=== PATIENT | male | born 1935 | race African-American/Black ===

== ENCOUNTER 2018-06-19 12:13 | Emergency (ER) | payer MEDICARE, MEDICAID ==
[2018-06-19] MEDS ORDERED: predniSONE 20 MG TAB ONE ×2 (14:35→14:42)
== END 2018-06-19 14:48 | disposition home or self-care (01) ==
LOC: ERS 12:13
DX: M79.641 Pain in right hand (principal); M79.642 Pain in left hand; E11.9 Type 2 diabetes mellitus without complications; E78.5 Hyperlipidemia, unspecified; I10 Essential (primary) hypertension; Z79.84 Long term (current) use of oral hypoglycemic drugs; Z79.899 Other long term (current) drug therapy
CPT/HCPCS: 99283; J7506

== ENCOUNTER 2018-10-13 17:30 | Observation (INO) | payer MEDICARE, MEDICAID ==
[2018-10-13 19:01] LABS: #Eosinphils 0.1 thou/uL (0.0-0.7); #Lymphocytes 1.6 thou/uL (1.20-3.40); #Monocytes 0.4 thou/uL (0.11-0.59); #Neutrophils 3.2 thou/uL (1.40-6.50); %Basophils 0.4 % (0.0-1.0); %Eosinophils 1.7 % (0.0-10.0); %Lymphocytes 29.7 % (21.0-51.0); %Monocytes 8.3 % (0.0-10.0); %Neutrophils 59.8 % (42.0-75.0); Hemoglobin 12.4 g/dL (14.0-18.0); Mean Corpuscular Hemoglobin 27.5 pg (27.0-31.0); Mean Corpuscular Volume 88.7 fL (78.0-98.0); Mean Platelet Volume 10.7 fL (7.4-10.4); Platelet Count 217 thou/uL (130-400); RBC Distribution Width 14.2 % (11.5-14.5); Red Blood Cell (RBC) Count 4.49 mill/uL (4.70-6.10); White Blood Cell (WBC) Count 5.3 thou/uL (4.8-10.8)
--- NOTE | 2018-10-13 19:11 | RAD ---
CHEST TWO VIEWS 10/13/18 COMPARISON: 05/22/07. HISTORY: Cough. FINDINGS: Slight elongation of the aorta. Pulmonary vessels and hilum are normal. Blunting of the costophrenic angles likely due to atelectasis or small effusion. No masses or consolidation. Lungs are hyperinflat ed. No pneumothorax or osseous abnormalities. IMPRESSION: 1. Blunting of the costophrenic angles due to small effusion or atelectasis. 2. Hyperinflation. POS: BAMBI
[2018-10-13 19:16] LABS: ALT (SGPT) 15 U/L (8-55); AST (SGOT) 18 U/L (5-34); Albumin 3.6 g/dL (3.4-4.8); Alkaline Phosphatase 102 U/L (40-150); Anion Gap 15 mmol/L (10-20); BUN (Urea Nitrogen) 18 mg/dL (8.4-25.7); Bilirubin, Total 0.5 mg/dL (0.2-1.2); CK (CPK) 45 U/L (30-200); Calc. Creatinine Clearance 0 mL/min (70-130); Calcium 9.5 mg/dL (7.8-10.44); Carbon Dioxide 21 mmol/L (23-31); Chloride 111 mmol/L (98-107); Estimated GFR-MDRD 72; Globulin 3.7 g/dL (2.4-3.5); Glucose 118 mg/dL (83-110); Potassium 4.1 mmol/L (3.5-5.1); Protein, Total 7.3 g/dL (5.8-8.1); Sodium 143 mmol/L (136-145)
[2018-10-13] MEDS ORDERED: Calcium Carbonate 500 MG ChewTAB PO PRN (21:26)
[2018-10-13] MEDS ORDERED: Acetaminophen 325 MG TAB PO PRN (21:26)
[2018-10-13] MEDS ORDERED: HumaLOG 300 UNITS/3 ML VIAL SC PRN ×2 (21:26)
[2018-10-13] MEDS ORDERED: Senokot S 8.6-50 MG TAB PO PRN (21:26)
[2018-10-13] MEDS ORDERED: Dextrose 50% Abboject 50 ML SYRINGE SLOW IVP PRN (21:26)
[2018-10-13] MEDS ORDERED: Dextrose 5% in Water 1,000 ML IV PRN (21:26)
[2018-10-13] MEDS ORDERED: Nitroglycerin 0.4 MG TAB (25 Tab Bottle) PO PRN (21:26)
[2018-10-13] MEDS ORDERED: Guaifenesin DM 100-10/5 ML UDCUP PO PRN (21:26)
[2018-10-13] MEDS ORDERED: Acetaminophen 650 MG Suppository PR PRN (21:26)
[2018-10-13] MEDS ORDERED: Zolpidem Tartrate 5 MG TAB PO PRN (21:26)
[2018-10-13] MEDS ORDERED: Bisacodyl 5 MG TAB PO PRN (21:26)
[2018-10-13 22:14] LABS: CKMB 2.3 ng/mL (0-6.6)
[2018-10-13 22:16] VITALS: BMI 25.0
[2018-10-13] MEDS: Nitroglycerin 2% Ointment 1 INCH/1 GM Packet TOP SCH (22:55)
[2018-10-14 01:19] LABS: Troponin I 0.196 ng/mL (< 0.028)
[2018-10-14 05:43] LABS: #Eosinphils 0.1 thou/uL (0.0-0.7); #Lymphocytes 2.1 thou/uL (1.20-3.40); #Monocytes 0.4 thou/uL (0.11-0.59); #Neutrophils 2.6 thou/uL (1.40-6.50); %Basophils 0.1 % (0.0-1.0); %Eosinophils 1.7 % (0.0-10.0); %Lymphocytes 40.1 % (21.0-51.0); %Monocytes 7.5 % (0.0-10.0); %Neutrophils 50.8 % (42.0-75.0); Hemoglobin 12.4 g/dL (14.0-18.0); Mean Corpuscular HGB CONC 31.5 g/dL (32.0-36.0); Mean Corpuscular Hemoglobin 27.5 pg (27.0-31.0); Mean Corpuscular Volume 87.2 fL (78.0-98.0); Mean Platelet Volume 10.3 fL (7.4-10.4); Platelet Count 205 thou/uL (130-400); RBC Distribution Width 14.3 % (11.5-14.5); Red Blood Cell (RBC) Count 4.53 mill/uL (4.70-6.10); White Blood Cell (WBC) Count 5.1 thou/uL (4.8-10.8)
[2018-10-14] MEDS ORDERED: Nitroglycerin 2% Ointment 1 INCH/1 GM Packet TOP SCH (06:00)
[2018-10-14] MEDS ORDERED: Furosemide 40 MG/4 ML VIAL SLOW IVP SCH ×2 (06:00→14:00)
[2018-10-14 06:11] LABS: Anion Gap 14 mmol/L (10-20); BUN (Urea Nitrogen) 17 mg/dL (8.4-25.7); Calc. Creatinine Clearance 66 mL/min (70-130); Calcium 9.5 mg/dL (7.8-10.44); Carbon Dioxide 22 mmol/L (23-31); Cardiac Risk 3.1 (Less than 4.5); Chloride 111 mmol/L (98-107); Cholesterol 116 mg/dl (< 200 Desired); Estimated GFR-MDRD 83; Glucose 104 mg/dL (83-110); HDL Cholesterol 38 mg/dL (>60 Neg Risk); LDL Cholesterol, Calculated 64 mg/dL; Potassium 3.9 mmol/L (3.5-5.1); Sodium 143 mmol/L (136-145); Triglycerides 72 mg/dL (Less than 150)
[2018-10-14] MEDS ORDERED: Nitroglycerin 0.4 MG TAB (25 Tab Bottle) PO PRN (06:12)
[2018-10-14] MEDS ORDERED: Calcium Carbonate 500 MG ChewTAB PO PRN (06:12)
[2018-10-14] MEDS ORDERED: Bisacodyl 5 MG TAB PO PRN (06:12)
[2018-10-14] MEDS ORDERED: Dextrose 5% in Water 1,000 ML IV PRN (06:12)
[2018-10-14] MEDS ORDERED: Acetaminophen 325 MG TAB PO PRN (06:12)
[2018-10-14] MEDS ORDERED: Acetaminophen 650 MG Suppository PR PRN (06:12)
[2018-10-14] MEDS ORDERED: Dextrose 50% Abboject 50 ML SYRINGE SLOW IVP PRN (06:12)
[2018-10-14] MEDS ORDERED: Zolpidem Tartrate 5 MG TAB PO PRN (06:13)
[2018-10-14] MEDS ORDERED: Senokot S 8.6-50 MG TAB PO PRN (06:13)
[2018-10-14] MEDS ORDERED: Guaifenesin DM 100-10/5 ML UDCUP PO PRN (06:13)
[2018-10-14] MEDS ORDERED: HumaLOG 300 UNITS/3 ML VIAL SC PRN ×2 (06:13)
[2018-10-14 06:14] LABS: Troponin I 0.225 ng/mL (< 0.028)
[2018-10-14] MEDS: Furosemide 40 MG/4 ML VIAL SLOW IVP SCH ×2 (06:44→15:21)
--- NOTE | 2018-10-14 06:51 | HP ---
CHIEF COMPLAINT: Cough. HISTORY OF PRESENT ILLNESS: This is an 83-year-old pleasant male with past medical history significant for diabetes mellitus type 2, hyperlipidemia, hypertension, prostate cancer, glaucoma, presenting with shortness of breath with exertion. Per the patient, he has been getting severe shortness of breath with ambulation in the past couple of days and this has been worsening. The patient states that he was walking to his mailbox this evening on the day of admission when he started having severe shortness of breath. The patient states that it was so bad, he was not able to catch his breath and this prompted the ED visit. The patient states that he is also having associated symptoms of cough, which is nonproductive in nature. At this time, the patient denies any fever, chills, nausea, vomiting, dizziness, chest pain, palpitations, abdominal pain, constipation, diarrhea, hematuria, hematochezia, or melena. REVIEW OF SYSTEMS: Positive for shortness of breath and dry cough, otherwise as documented in the HPI, all other systems are reviewed and are negative. PAST MEDICAL HISTORY: Significant for diabetes mellitus type 2, hypertension, hyperlipidemia, prostate cancer, glaucoma, and hypertension. FAMILY HISTORY: Reviewed and noncontributory to this visit. PAST SURGICAL HISTORY: The patient had prostatectomy, cataract surgery in both eyes. PSYCHIATRIC HISTORY: No previous psych history. SOCIAL HISTORY: The patient drinks daily, less than 5 drinks per day. The patient is a former tobacco smoker. The patient states that he quit more than 10 years ago. The patient lives at home sometimes by himself and sometimes with a friend and sometimes family comes and spend time with him, per the patient. ALLERGIES: NO KNOWN DRUG ALLERGIES. CURRENT MEDICATIONS: The patient takes: 1. Lisinopril 20 mg. 2. Timolol 0.5% ophthalmic. PHYSICAL EXAMINATION: VITAL SIGNS: The patient's blood pressure is 137/94, pulse of 103, respiratory rate of 18, temperature of 97.9, oxygenation of 99 on room air. GENERAL APPEARANCE: The patient is lying in bed, does not appear to be in any acute distress. The patient is able to speak in full sentences. The patient is alert and oriented to place, time, and person. HEENT: Normocephalic, atraumatic. Pupils are equally round and reactive to light. Extraocular movements are intact. No scleral icterus. Mucous membranes are dry. NECK: Trachea is midline. Full range of motion. No JVD. Supple. LUNGS: Clear to auscultation bilaterally. No wheezing, no rales, no rhonchi appreciated at the anterior lung myles. On the posterior lung myles, the patient does have some mild crackles that can be appreciated at the posterior lower lobes bilaterally. CARDIAC: The patient is mildly tachycardic. No murmurs can be appreciated. ABDOMEN: Obese abdomen. Soft, nontender, and nondistended. Positive bowel sounds in all quadrants. No pulsatile masses, no peritoneal signs, no rigidity appreciated. EXTREMITIES: The patient has 5/5 upper extremity strength and 5/5 lower extremity strength. Good pulses bilaterally at the upper and lower extremities, and no edema can be appreciated. NEUROLOGIC: Cranial nerves 2 through 12 grossly intact. No neurologic deficits appreciated at this time. SKIN: The patient has severe dry skin with scaly lower extremities that can be seen. PSYCHIATRIC: Alert and oriented x3. Normal affect. DIAGNOSTIC DATA: EKG shows sinus rhythm with a rate of about 94 with some PACs noted. Chest x-ray which was done showed blunting of the costophrenic angles due to pleural effusions or atelectasis. LABORATORY DATA: WBC is 5.3, hemoglobin is 12.4, hematocrit is 39.8, MCV is 88.7, RDW is 14.2, platelet count is 217. Sodium is 143, potassium is 4.1, chloride is 111, carbon dioxide of 21, anion gap of 15, BUN is 18, creatinine is 1.17, glucose is 118, magnesium is 2.1, AST is 18, ALT is 15, creatine kinase is 45. Troponin is 0.162 and 0.193 respectively. BNP is 828.4. ASSESSMENT AND PLAN: This is an 83-year-old male, being admitted for: 1. New onset acute congestive heart failure. At this point, the patient is having bilateral pleural effusions with shortness of breath and orthopnea with increased shortness of breath with exertion. We have started the patient on Lasix. We have consulted Cardiology. We are going to order an echo. We will follow up on echo. We will follow up on morning labs. We will continue the patient on home medications that are appropriate at this time. 2. Diabetes mellitus type 2. We will continue the patient on insulin sliding scale and we will monitor the patient's blood sugars closely. 3. Hypertension. We will start the patient on his home medications and we will add p.r.n. blood pressure medications if the patient's blood pressure elevates. 4. Hyperlipidemia. We will continue the patient on current management. 5. Deep venous thrombosis and gastrointestinal prophylaxis. Job ID: [id number]
[2018-10-14] MEDS: Nitroglycerin 2% Ointment 1 INCH/1 GM Packet TOP SCH (07:53)
[2018-10-14] MEDS ORDERED: Famotidine/PF 20 mg/2ml Vial SLOW IVP SCH ×2 (09:00)
[2018-10-14] MEDS ORDERED: Lisinopril 20 MG TAB PO SCH (09:00)
[2018-10-14] MEDS ORDERED: Famotidine 20 MG TAB PO SCH (09:00)
[2018-10-14] MEDS ORDERED: Aspirin 325 MG TAB PO SCH (09:00)
[2018-10-14] MEDS ORDERED: Enoxaparin Sodium 40 MG/0.4 ML SYRINGE SC SCH (09:00)
[2018-10-14] MEDS: Famotidine 20 MG TAB PO SCH ×2 (09:13→20:31)
[2018-10-14] MEDS: Lisinopril 20 MG TAB PO SCH (09:13)
[2018-10-14] MEDS: Aspirin 325 MG TAB PO SCH (09:13)
[2018-10-14] MEDS: Timolol 0.5% Ophth Soln 5 ml Bottle EA EYE SCH (09:14)
[2018-10-14] MEDS: Enoxaparin Sodium 40 MG/0.4 ML SYRINGE SC SCH (09:15)
--- NOTE | 2018-10-14 12:40 | PDOC.PN ---
- Subjective Encounter Start Date: 10/14/18 Encounter Start Time: 10:00 Subjective: sob is better -: no chest pain or palp -: and son at bedside - Objective Resuscitation Status - Order Detail: 10/13/18 21:26 Resuscitation Status Routine Resuscitation Status: FULL: Full Resuscitation MAR Reviewed: Yes Vital Signs & Weight: Vital Signs (12 hours) Temp Pulse Resp BP Pulse Ox 10/14/18 11:11 97.6 F 93 20 120/79 96 10/14/18 07:21 97.6 F 101 H 20 120/85 99 10/14/18 03:50 98.1 F 82 12 125/87 95 Weight Weight 190 lb 3.2 oz I&O: 10/13/18 10/14/18 10/15/18 06:59 06:59 06:59 Intake Total 750 Output Total 300 100 Balance 450 -100 Result Diagrams: 10/14/18 05:30 10/14/18 05:30 Additional Labs: Accuchecks 10/14/18 10/13/18 11:14 22:46 POC Glucose 110 97 Phys Exam - Physical Examination HEENT: PERRLA, moist MMs Neck: no JVD, supple Respiratory: no wheezing, no rales Cardiovascular: RRR, no significant murmur Gastrointestinal: soft, non-tender, positive bowel sounds Musculoskeletal: no edema, pulses present Neurological: non-focal, moves all 4 limbs Psychiatric: normal affect, A&O x 3 Dx/Plan (1) Acute exacerbation of CHF (congestive heart failure) Code(s): I50.9 - HEART FAILURE, UNSPECIFIED Status: Acute Qualifiers: Heart failure type: systolic Qualified Code(s): I50.23 - Acute on chronic systolic (congestive) heart failure Comment: ef of 25% (2) Demand ischemia of myocardium Code(s): I24.8 - OTHER FORMS OF ACUTE ISCHEMIC HEART DISEASE Status: Acute (3) HTN (hypertension) Code(s): I10 - ESSENTIAL (PRIMARY) HYPERTENSION Status: Chronic Qualifiers: Hypertension type: essential hypertension Qualified Code(s): I10 - Essential (primary) hypertension (4) DM type 2 (diabetes mellitus, type 2) Status: Chronic Qualifiers: Diabetes mellitus long-term insulin use: without long-term use Diabetes mellitus complication status: with unspecified complications Qualified Code(s) : E11.8 - Type 2 diabetes mellitus with unspecified complications (5) Dyslipidemia Code(s): E78.5 - HYPERLIPIDEMIA, UNSPECIFIED Status: Chronic (6) H/O prostate cancer Code(s): Z85.46 - PERSONAL HISTORY OF MALIGNANT NEOPLASM OF PROSTATE Status: Chronic - Plan gentle iv diuresis -: for life vest -: d/w , cath if he agrees -: small dose coreg, lisinopril, asp -: to amb as tolerated * . Review of Systems - Medications/Allergies Allergies/Adverse Reactions: Allergies Allergy/AdvReac Type Severity Reaction Status Date / Time No Known Drug Allergies Allergy Verified 10/13/18 22:19 Medications: Current Medications Acetaminophen (Tylenol) 650 mg PO Q4H PRN PRN Reason: Headache/Fever/Mild Pain (1-3) Acetaminophen (Tylenol) 650 mg MD Q4H PRN PRN Reason: Headache/Fever/Mild Pain (1-3) Aspirin (Aspirin) 325 mg PO DAILY [facility] Last Admin: 10/14/18 09:13 Dose: 325 mg Bisacodyl (Dulcolax) 10 mg PO DAILYPRN PRN PRN Reason: Constipation Calcium Carbonate (Tums) 1,000 mg PO Q4H PRN PRN Reason: Heartburn or Indigestion Carvedilol (Coreg) 3.125 mg PO BID-[facility] Dextrose/Water (Dextrose 50%) 25 gm SLOW IVP PRN PRN PRN Reason: Hypoglycemia Enoxaparin Sodium (Lovenox) 40 mg SC 0900 [facility] Last Admin: 10/14/18 09:15 Dose: Not Given Famotidine (Pepcid) 20 mg PO BID [facility] Last Admin: 10/14/18 09:13 Dose: 20 mg Furosemide (Lasix) 40 mg SLOW IVP 0600,1400 [facility] Last Admin: 10/14/18 06:44 Dose: 40 mg Glucagon (Glucagon) 1 mg IM PRN PRN PRN Reason: Hypoglycemia Guaifenesin/Dextromethorphan (Robitussin Dm) 15 ml PO Q4H PRN PRN Reason: Cough Dextrose/Water (D5w) 1,000 mls @ 0 mls/hr IV .Q0M PRN PRN Reason: Hypoglycemia Insulin Human Lispro (Humalog) 0 units SC .MILD SLIDING SCALE PRN PRN Reason: Mild Correctional Scale Insulin Human Lispro (Humalog) 0 units SC .BEDTIME SLIDING SC PRN PRN Reason: Bedtime Correctional Scale Lisinopril (Zestril) 20 mg PO DAILY [facility] Last Admin: 10/14/18 09:13 Dose: 20 mg Nitroglycerin (Nitrostat) 0.4 mg PO Q5MIN PRN PRN Reason: Chest Pain Senna/Docusate Sodium (Senokot S) 2 tab PO BIDPRN PRN PRN Reason: Constipation Sodium Chloride (Flush - Normal Saline) 10 ml IVF Q12HR [facility] Last Admin: 10/14/18 09:15 Dose: 10 ml Sodium Chloride (Flush - Normal Saline) 10 ml IVF PRN PRN PRN Reason: Saline Flush Last Admin: 10/14/18 06:45 Dose: 10 ml Timolol Maleate (Timoptic 0.5% Oph Sol) 1 drop EA EYE DAILY [facility] Last Admin: 10/14/18 09:14 Dose: 1 drop Zolpidem Tartrate (Ambien) 5 mg PO HSPRN PRN PRN Reason: Insomnia
[2018-10-14] MEDS: Carvedilol 3.125 MG TAB PO SCH (17:59)
--- NOTE | 2018-10-14 22:28 | CON ---
DATE OF CONSULTATION: REASON FOR CONSULTATION: Acute systolic heart failure. HISTORY OF PRESENT ILLNESS: Mr. Silva is a very pleasant 83-year-old gentleman whom I have seen and evaluated by Cardiology in the past. He recently presented with increased shortness of breath over the last several days. He has history of trouble walking to his mailbox. He does complain of a mild lower extremity edema. No PND or orthopnea. No chest pain or pressure noted. No other associated factors present. Cardiac risk factors include diabetes mellitus, hypertension, hyperlipidemia. No tobacco use. PAST MEDICAL HISTORY: Prostate cancer, glaucoma. SURGICAL HISTORY: Cataract surgery, prostatectomy. SOCIAL HISTORY: Positive alcohol use. Previous tobacco use. ALLERGIES: NONE. HOME MEDICATIONS: Include lisinopril. REVIEW OF SYSTEMS: Ten-point review of systems is reviewed and as above, negative. PHYSICAL EXAMINATION: GENERAL: Patient is a pleasant male who is in no acute distress. The patient appears their stated age. VITAL SIGNS: Blood pressure 120/85, pulse 101, temperature 97.6. NEUROLOGIC: The patient is alert and oriented x3 with no focal neurologic deficits. HEENT: Sclerae without icterus. Mouth has moist mucous membranes with normal pallor. NECK: No JVD. Carotid upstroke brisk. No bruits bilaterally. LUNGS: Mild crackles noted bilaterally. BACK: No scoliosis or kyphosis. CARDIAC: Regular rate and rhythm with normal S1 and S2. No S3 or S4 noted. No significant rubs, murmurs, thrills, or gallops noted throughout the precordium. PMI is not displaced. There is no parasternal heave. ABDOMEN: Soft, nontender, nondistended. No peritoneal signs present. No hepatosplenomegaly. No abnormal striae. EXTREMITIES: 2+ femoral and 2+ dorsalis pedis pulses. No cyanosis, clubbing, or edema. SKIN: No gross abnormalities. LABORATORY DATA: Pertinent labs: White blood cell count 12.4, creatinine 1.04, peak troponin 0.193, BNP of 828. Echo Doppler shows LVEF 25% to 30%. He appears globally hypokinetic with no regional wall motion abnormalities present. IMPRESSION: 1. New onset systolic heart failure. 2. Diabetes mellitus. 3. Hypertension. RECOMMENDATIONS: At this point, Mr. Silva's symptoms are most likely related to new onset systolic heart failure. I had a long discussion with Mr. Silva and his family about how to proceed. I discussed coronary angiography with a possible PCI with the family as well as the patient. This was my recommendation. I also discussed other options including medical therapy. At this point, after discussing all risks and benefits, he would like to proceed with a medical therapy. His troponin was mildly elevated, but likely related to demand ischemia. He does have multiple risk factors for underlying coronary artery disease. I did stress that this could certainly be from underlying coronary artery disease and would like to assess his anatomy. At this point, he would like to proceed with a more conservative approach. We will add low-dose beta-dary therapy. Would also recommend LifeVest. I did discuss with Mr. Silva. LifeVest would be required whether he needed angio or medical therapy. Otherwise, from my standpoint, we will continue to monitor closely. He has diuresed and is near euvolemia. I also discussed low sodium diet and decreased fluid intake. The patient is stable, likely to go home in a.m. once LifeVest is placed. Job ID: [id number]
[2018-10-15] MEDS: Furosemide 40 MG/4 ML VIAL SLOW IVP SCH (06:47)
[2018-10-15] MEDS: Lisinopril 20 MG TAB PO SCH (09:00)
[2018-10-15] MEDS: Famotidine 20 MG TAB PO SCH (09:00)
[2018-10-15] MEDS: Aspirin 325 MG TAB PO SCH (09:00)
[2018-10-15] MEDS: Enoxaparin Sodium 40 MG/0.4 ML SYRINGE SC SCH (09:00)
[2018-10-15] MEDS: Carvedilol 3.125 MG TAB PO SCH (09:00)
[2018-10-15] MEDS: Timolol 0.5% Ophth Soln 5 ml Bottle EA EYE SCH (09:01)
--- NOTE | 2018-10-15 10:03 | PDOC.PN ---
- Subjective Encounter Start Date: 10/15/18 Encounter Start Time: 08:00 Subjective: is amb and eating well -: no sob or chest pain - Objective Resuscitation Status - Order Detail: 10/13/18 21:26 Resuscitation Status Routine Resuscitation Status: FULL: Full Resuscitation MAR Reviewed: Yes Vital Signs & Weight: Vital Signs (12 hours) Temp Pulse Resp BP BP Pulse Ox 10/15/18 09:01 95 119/83 10/15/18 09:00 119/83 10/15/18 07:09 98.2 F 95 16 119/83 96 10/15/18 04:00 98.0 F 78 16 96/60 98 Weight Weight 185 lb 3.2 oz I&O: 10/14/18 10/15/18 10/16/18 06:59 06:59 06:59 Intake Total 750 1474 Output Total 300 1600 Balance 450 -126 Result Diagrams: 10/14/18 05:30 10/14/18 05:30 Additional Labs: Accuchecks 10/15/18 10/14/18 10/14/18 08:06 20:21 17:57 POC Glucose 103 126 H 89 10/14/18 11:14 POC Glucose 110 Phys Exam - Physical Examination HEENT: PERRLA, moist MMs Neck: no JVD, supple Respiratory: no wheezing, no rales Cardiovascular: RRR, no significant murmur Gastrointestinal: soft, non-tender, positive bowel sounds Musculoskeletal: no edema, pulses present Neurological: non-focal, moves all 4 limbs Psychiatric: normal affect, A&O x 3 Dx/Plan (1) Acute exacerbation of CHF (congestive heart failure) Code(s): I50.9 - HEART FAILURE, UNSPECIFIED Status: Acute Qualifiers: Heart failure type: systolic Qualified Code(s): I50.23 - Acute on chronic systolic (congestive) heart failure Comment: ef of 25% (2) Demand ischemia of myocardium Code(s): I24.8 - OTHER FORMS OF ACUTE ISCHEMIC HEART DISEASE Status: Acute (3) HTN (hypertension) Code(s): I10 - ESSENTIAL (PRIMARY) HYPERTENSION Status: Chronic Qualifiers: Hypertension type: essential hypertension Qualified Code(s): I10 - Essential (primary) hypertension (4) DM type 2 (diabetes mellitus, type 2) Status: Chronic Qualifiers: Diabetes mellitus adjunct faculty for medical terminology insulin use: without mcc use Diabetes mellitus complication status: with unspecified complications Qualified Code(s) : E11.8 - Type 2 diabetes mellitus with unspecified complications (5) Dyslipidemia Code(s): E78.5 - HYPERLIPIDEMIA, UNSPECIFIED Status: Chronic (6) H/O prostate cancer Code(s): Z85.46 - PERSONAL HISTORY OF MALIGNANT NEOPLASM OF PROSTATE Status: Chronic - Plan hemostable -: coreg, lisinopril, oral lasix and aspirin -: may dc home after life vest is fitted * . Review of Systems - Medications/Allergies Allergies/Adverse Reactions: Allergies Allergy/AdvReac Type Severity Reaction Status Date / Time No Known Drug Allergies Allergy Verified 10/13/18 22:19 Medications: Current Medications Acetaminophen (Tylenol) 650 mg PO Q4H PRN PRN Reason: Headache/Fever/Mild Pain (1-3) Acetaminophen (Tylenol) 650 mg [place] Q4H PRN PRN Reason: Headache/Fever/Mild Pain (1-3) Aspirin (Aspirin) 325 mg PO DAILY [facility] Last Admin: 10/15/18 09:00 Dose: 325 mg Bisacodyl (Dulcolax) 10 mg PO DAILYPRN PRN PRN Reason: Constipation Calcium Carbonate (Tums) 1,000 mg PO Q4H PRN PRN Reason: Heartburn or Indigestion Carvedilol (Coreg) 3.125 mg PO BID-[facility] Last Admin: 10/15/18 09:00 Dose: 3.125 mg Dextrose/Water (Dextrose 50%) 25 gm SLOW IVP PRN PRN PRN Reason: Hypoglycemia Enoxaparin Sodium (Lovenox) 40 mg SC 0900 [facility] Last Admin: 10/15/18 09:00 Dose: 40 mg Famotidine (Pepcid) 20 mg PO BID [facility] Last Admin: 10/15/18 09:00 Dose: 20 mg Furosemide (Lasix) 40 mg SLOW IVP 0600,1400 [facility] Last Admin: 10/15/18 06:47 Dose: 40 mg Glucagon (Glucagon) 1 mg IM PRN PRN PRN Reason: Hypoglycemia Guaifenesin/Dextromethorphan (Robitussin Dm) 15 ml PO Q4H PRN PRN Reason: Cough Dextrose/Water (D5w) 1,000 mls @ 0 mls/hr IV .Q0M PRN PRN Reason: Hypoglycemia Insulin Human Lispro (Humalog) 0 units SC .MILD SLIDING SCALE PRN PRN Reason: Mild Correctional Scale Insulin Human Lispro (Humalog) 0 units SC .BEDTIME SLIDING SC PRN PRN Reason: Bedtime Correctional Scale Lisinopril (Zestril) 20 mg PO DAILY [facility] Last Admin: 10/15/18 09:00 Dose: 20 mg Nitroglycerin (Nitrostat) 0.4 mg PO Q5MIN PRN PRN Reason: Chest Pain Senna/Docusate Sodium (Senokot S) 2 tab PO BIDPRN PRN PRN Reason: Constipation Sodium Chloride (Flush - Normal Saline) 10 ml IVF Q12HR [facility] Last Admin: 10/15/18 09:01 Dose: 10 ml Sodium Chloride (Flush - Normal Saline) 10 ml IVF PRN PRN PRN Reason: Saline Flush Last Admin: 10/15/18 06:48 Dose: 10 ml Timolol Maleate (Timoptic 0.5% [facility]) 1 drop EA EYE DAILY [facility] Last Admin: 10/15/18 09:01 Dose: 1 drop Zolpidem Tartrate (Ambien) 5 mg PO HSPRN PRN PRN Reason: Insomnia
[2018-10-15 10:53] LABS: Anion Gap 15 mmol/L (10-20); BUN (Urea Nitrogen) 18 mg/dL (8.4-25.7); Calc. Creatinine Clearance 54 mL/min (70-130); Calcium 9.7 mg/dL (7.8-10.44); Carbon Dioxide 27 mmol/L (23-31); Chloride 102 mmol/L (98-107); Estimated GFR-MDRD 67; Glucose 161 mg/dL (83-110); Potassium 3.5 mmol/L (3.5-5.1); Sodium 140 mmol/L (136-145)
--- NOTE | 2018-10-15 13:43 | DIS ---
DATE OF ADMISSION: 10/13/2018 DATE OF DISCHARGE: 10/15/2018 DISCHARGE DISPOSITION: Home. PRIMARY DISCHARGE DIAGNOSES: Acute congestive heart failure exacerbation with systolic dysfunction stage C, ejection fraction of 25%; demand ischemia; hypertension; diabetes mellitus type 2; dyslipidemia; history of prostate cancer. PROCEDURES DONE DURING HOSPITALIZATION: Chest x-ray done on the day of admission showed bilateral small pleural effusion. Echo with 2D Doppler showed an EF of 25% to 30%. There was diastolic dysfunction, moderate to severe mitral regurgitation, moderate tricuspid regurgitation. H and H 12 and 39, platelet count 205. Total cholesterol 116, triglycerides 72, LDL 64, HDL 38. BNP 828. Troponin I was indeterminate, peaking up to 0.22. CK-MB 2.3. DISCHARGE MEDICATIONS: 1. Aspirin 325 mg p.o. daily. 2. Lisinopril 20 mg p.o. daily. 3. Coreg 3.125 mg twice daily. 4. Lasix 20 mg twice daily. 5. Timolol eye drops as before. ALLERGIES: NO KNOWN DRUG ALLERGIES. INPATIENT CONSULT: Dr. Mendoza for Cardiology. DISCHARGE PLAN: The patient to follow up with primary care physician in [address] Mendoza as advised. BRIEF COURSE DURING HOSPITALIZATION: The patient initially came to ER with complaints of cough and shortness of breath. Initial workup revealed acute CHF exacerbation. The patient had his echo done, which revealed an EF of 25%. He also had indeterminate troponins. He has had consultation with Dr. Mendoza. The patient was given the option of having cardiac catheterization done to rule out ischemic cardiomyopathy, but the patient would like to initially try medications first and then consider having the angiogram. In view of this, he was placed on Coreg, Lasix, along with lisinopril. He was gently diuresed. The patient is currently awaiting LifeVest placement. Once this is done, the patient can be shortly discharged home. He has been cleared by Cardiology for discharge. Please see a [id number] documentation for the day of discharge on [employer]. Job ID: [id number] [facility]
[2018-10-15] MEDS ORDERED: Furosemide 20 MG TAB PO SCH (14:00)
[2018-10-15 15:28] VITALS: TEMP 97.9
[2018-10-15 16:07] VITALS: BP 106/72
== END 2018-10-15 18:00 | disposition home or self-care (01) ==
LOC: ERS 17:30 → 2SW 20:21 → ERS 21:39
PROVIDERS: ADMIT Internal Medicine; ATTEND Internal Medicine
DX: I11.0 Hypertensive heart disease with heart failure (principal); I50.21 Acute systolic (congestive) heart failure; I24.8 Other forms of acute ischemic heart disease; E11.9 Type 2 diabetes mellitus without complications; E78.5 Hyperlipidemia, unspecified; H40.9 Unspecified glaucoma; Z85.46 Personal history of malignant neoplasm of prostate; Z87.891 Personal history of nicotine dependence; Z90.79 Acquired absence of other genital organ(s); Z79.82 Long term (current) use of aspirin; Z79.899 Other long term (current) drug therapy
CPT/HCPCS: 71046; 80048 ×2; 80061; 82550; 82553; 82962 ×3; 83735; 83880; 84484 ×4; 85025; 93005; 93306; 93798 ×2; 94760 ×2; 96372; 96374; 96376 ×2; 99285; G0378 ×2; 36415; 36416; 80053; 84443; J1650; J1940

== ENCOUNTER 2019-02-27 06:57 | Day surgery (SDC) | payer MEDICARE, MEDICAID ==
[2019-02-27 07:50] LABS: #Basophils 0.1 thou/uL (0.0-0.2); #Eosinphils 0.1 thou/uL (0.0-0.7); #Lymphocytes 2.3 thou/uL (1.20-3.40); #Monocytes 0.4 thou/uL (0.11-0.59); #Neutrophils 2.1 thou/uL (1.40-6.50); %Eosinophils 1.5 % (0.0-10.0); %Lymphocytes 46.9 % (21.0-51.0); %Monocytes 8.4 % (0.0-10.0); %Neutrophils 41.2 % (42.0-75.0); Hemoglobin 14.1 g/dL (14.0-18.0); Large Platelets SLIGHT; MDiff Complete? YES; Mean Corpuscular HGB CONC 32.2 g/dL (32.0-36.0); Mean Corpuscular Hemoglobin 28.4 pg (27.0-31.0); Mean Corpuscular Volume 88.1 fL (78.0-98.0); Mean Platelet Volume 11.9 fL (7.4-10.4); Platelet Count 117 thou/uL (130-400); Platelet Morphology Comment Appears Decreased; RBC Distribution Width 14.6 % (11.5-14.5); RBC Morphology Normal; Red Blood Cell (RBC) Count 4.96 mill/uL (4.70-6.10)
[2019-02-27 07:54] LABS: ALT (SGPT) 15 U/L (8-55); AST (SGOT) 19 U/L (5-34); Albumin 3.9 g/dL (3.4-4.8); Alkaline Phosphatase 112 U/L (40-150); Anion Gap 13 mmol/L (10-20); BUN (Urea Nitrogen) 22 mg/dL (8.4-25.7); Bilirubin, Direct 0.6 mg/dL (0.1-0.3); Bilirubin, Total 1.1 mg/dL (0.2-1.2); Calc. Creatinine Clearance 0 mL/min (70-130); Calcium 10.4 mg/dL (7.8-10.44); Carbon Dioxide 28 mmol/L (23-31); Cardiac Risk 3.1 (Less than 4.5); Chloride 103 mmol/L (98-107); Cholesterol 151 mg/dl (< 200 Desired); Estimated GFR-MDRD 68; Glucose 106 mg/dL (83-110); HDL Cholesterol 49 mg/dL (>60 Neg Risk); LDL Cholesterol, Calculated 85 mg/dL; Potassium 4.3 mmol/L (3.5-5.1); Protein, Total 7.9 g/dL (5.8-8.1); Sodium 140 mmol/L (136-145); Triglycerides 87 mg/dL (Less than 150)
[2019-02-27] MEDS ORDERED: Nitroglycerin 100MG/250ML BOT 0 ML ONE (08:29)
[2019-02-27] MEDS ORDERED: Verapamil 5 MG/2 ML VIAL ONE (08:29)
[2019-02-27] MEDS ORDERED: Adenosine 6 MG/2 ML VIAL ONE (08:29)
[2019-02-27] MEDS ORDERED: Heparin 10,000 UNITS/1 ML VIAL ONE (08:49)
[2019-02-27 09:00] LABS: INR-International Normal Ratio 1.2; PTT 40.7 SEC (22.9-36.1)
[2019-02-27] MEDS ORDERED: Iopamidol 370 76% 100 ML VIAL ONE (09:49)
== END 2019-02-27 14:08 | disposition home or self-care (01) ==
LOC: CCL 06:57
PROVIDERS: ATTEND Internal Medicine Cardiovascular Disease
PROC: 4A023N7 Measurement of Cardiac Sampling and Pressure, Left Heart, Percutaneous Approach (ICD-10-PCS; principal; 2019-02-27)
PROC: B2111ZZ Fluoroscopy of Multiple Coronary Arteries using Low Osmolar Contrast (ICD-10-PCS; 2019-02-27)
DX: I25.10 Atherosclerotic heart disease of native coronary artery without angina pectoris (principal); I42.9 Cardiomyopathy, unspecified; I11.0 Hypertensive heart disease with heart failure; I50.9 Heart failure, unspecified; E11.9 Type 2 diabetes mellitus without complications; E78.5 Hyperlipidemia, unspecified; Z79.82 Long term (current) use of aspirin; Z79.899 Other long term (current) drug therapy; Z88.0 Allergy status to penicillin
CPT/HCPCS: 76942; 80053; 80061; 80076; 85025; 85610; 85730; 93454; C1760; C1769; J0153; J1644; Q9967

== ENCOUNTER 2020-02-25 10:57 | Inpatient (IN) | payer MEDICARE, MEDICAID ==
[~2020-02-25 10:57] MED LIST: Iopamidol-370 76% 500 ML 1 ML ONE; MD-Gastroview 120 ML BOT ONE
[2020-02-25 14:28] LABS: #Lymphocytes 0.9 thou/uL (1.20-3.40); #Monocytes 0.9 thou/uL (0.11-0.59); #Neutrophils 11.3 thou/uL (1.40-6.50); %Basophils 0.4 % (0.0-1.0); %Eosinophils 0.1 % (0.0-10.0); %Monocytes 6.8 % (0.0-10.0); %Neutrophils 85.8 % (42.0-75.0); Hemoglobin 17.6 g/dL (14.0-18.0); Mean Corpuscular HGB CONC 32.4 g/dL (32.0-36.0); Mean Corpuscular Hemoglobin 29.7 pg (27.0-31.0); Mean Corpuscular Volume 91.8 fL (78.0-98.0); Mean Platelet Volume 12.3 fL (7.4-10.4); Platelet Count 96 thou/uL (130-400); RBC Distribution Width 12.4 % (11.5-14.5); Red Blood Cell (RBC) Count 5.92 mill/uL (4.70-6.10); White Blood Cell (WBC) Count 13.1 thou/uL (4.8-10.8)
[2020-02-25 15:11] LABS: ALT (SGPT) 7 U/L (8-55); AST (SGOT) 13 U/L (5-34); Albumin 3.7 g/dL (3.4-4.8); Alkaline Phosphatase 77 U/L (40-110); Anion Gap 17 mmol/L (10-20); BUN (Urea Nitrogen) 31 mg/dL (8.4-25.7); Bilirubin, Total 1.8 mg/dL (0.2-1.2); Calc. Creatinine Clearance 0 mL/min (70-130); Calcium 9.9 mg/dL (7.8-10.44); Carbon Dioxide 27 mmol/L (23-31); Chloride 99 mmol/L (98-107); Estimated GFR-MDRD 55; Globulin 3.7 g/dL (2.4-3.5); Glucose 123 mg/dL (83-110); Lipase Less than 4 U/L (8-78); Protein, Total 7.4 g/dL (5.8-8.1); Sodium 139 mmol/L (136-145)
[2020-02-25] MEDS ORDERED: Ondansetron PF 4 MG/2 ML Vial ONE (15:16)
[2020-02-25] MEDS ORDERED: Fentanyl 100 MCG/2 ML VIAL ONE (15:16)
--- NOTE | 2020-02-25 15:34 | CT ---
EXAM: ABDOMEN AND PELVIC CT SCAN WITH IV CONTRAST: 02/25/20 HISTORY: Surgical history of prostatectomy. Constipation with lower abdominal pain. FINDINGS: Small bilateral pleural effusions. Linear and parenchymal changes in both lower lobes probably repres enting subsegmental atelectasis. Moderate diffuse ascites. This is a primarily arterial phase contras t study. The venous structures are not identified with IV contrast which limits this examination. The visualized liver and gallbladder, pancreas, spleen, and adrenal glands are unremarkable. Bilateral r enal cysts up to 3.1 cm. No renal calculus or acute obstruction. Very markedly dilated small bowel throughout most of the abdomen and pelvis with some relative nondilatation of the distal small bowel certainly raising concern for small bowel obstruction, the exact location is not definitely demonstr ated but felt to be within the ileum. Some of the small bowel loops are somewhat indistinct and could possibly be mildly thickened raising concern for some associated nonspecific enteritis. There is min imal scarred gas and fecal material in the colon. There is some dilatation of the stomach and duodenu m. A normal appendix is not visualized but there is no dimension evidence for acute appendicitis. IMPRESSION: Abnormally dilated small bowel evidence for small bowel obstruction with some possible mild small bow el wall thickening, nonspecific but possibly representing some mild enteritis or inflammation. Eviden ce for ascites. Small pleural effusions with some minimal linear parenchymal changes in the lung base s having more the appearance of subsegmental atelectasis. Exam is somewhat limited because of the ess ential arterial phase of the post contrast images. POS: [facility]
--- NOTE | 2020-02-25 15:46 | PDOC.FPRHP ---
- History of Present Illness Chief Complaint: abdominal pain History of Present Illness: This 84 yo M has past surgical history of prostatectomy several years ago. He is a poor historian, hard of hearing, and has documented history of unspecified type dementia. He presents w/ chief complaint of abdominal pain. This started earlier today. He describes the pain as diffuse. He reports constipation for the past two days. Denies history of ever having SBO. He has not vomited; denies nausea and vomiting. He was otherwise feeling well before today. ED Course: Received fentanyl and zofran along w/ 1L of NS. - Allergies/Adverse Reactions Allergies Allergy/AdvReac Type Severity Reaction Status Date / Time Penicillins Allergy Verified 01/05/20 22:24 environmental dust mites Allergy Uncoded 01/05/20 22:24 - Home Medications Medication Instructions Recorded Confirmed Type Lisinopril 20 mg PO DAILY 10/13/18 02/27/19 History Timolol Maleate [Timolol Maleate 1 drop EA EYE DAILY 10/13/18 02/27/19 History 0.5% Ophth Gel] Aspirin 325 mg PO DAILY #30 tab 10/15/18 02/27/19 Rx Carvedilol [Coreg] 12.5 mg PO BID 02/27/19 02/27/19 History Furosemide [Lasix] 40 mg PO DAILY 02/27/19 02/27/19 History - History PMHx: Hyperlipidemia, HTN, prediabetes, HFrEF w/ pacemaker, osteoarthritis, CKD PSHx: - prostatectomy, unclear if for cancer (in [facility]) or for BPH (clinic records) - cataract surgery bilaterally - pacemaker placement FHx: not assessed Social: - Former smoker, 2 ppd x 20 years. Quit more than 10 years ago. - Previous alcohol use, socially. - Denies illicit drugs. - Review of Systems General: reports: fatigue. denies: fever/chills Respiratory: denies: cough, shortness of breath Cardiovascular: denies: chest pain Gastrointestinal: reports: constipation, abdominal pain. denies: nausea, vomiting, diarrhea Genitourinary: denies: dysuria Skin: denies: rashes Musculoskeletal: denies: pain Psychological: reports: other (unspecified dementia). denies: anxiety, depression - Vital signs BP: 132/97, MAP: 108, Pulse: 88, Resp: 12, Temp: 97.7 (Oral), Pain: 3, O2 sat: 98 on (Room Air), Time: 02/25/2020 15:25. Wt: 75 kg - Physical Exam Constitutional: NAD, awake, alert and oriented -Constitutional: thin body habitus. HEENT: normocephalic and atraumatic, conjunctiva clear, no scleral icterus, grossly normal vision -HEENT: mucous membranes dry Neck: supple, no thyromegaly, other (mild LAD) Heart: RRR, normal S1/S2, no murmurs/rubs/gallops Lungs: CTAB, no respiratory distress Abdomen: non-tender, no masses/distention -Abdomen: involuntary guarding, hypoactive BS, mild TTP, hard mass possibly stool palpated in LLQ. Musculoskeletal: normal structure, normal tone Neurological: no focal deficit Skin: no rash/lesions Psychiatric: normal mood and affect, intact recent and remote memory -Psychiatric: AxO x3. FMR H&P: Results - Labs Result Diagrams: 02/25/20 14:09 02/25/20 14:48 Lab results: WBC 13.1 thou/uL (4.8-10.8) H 02/25/20 14:09 Hgb 17.6 g/dL (14.0-18.0) 02/25/20 14:09 Hct 54.4 % (42.0-52.0) H 02/25/20 14:09 MCV 91.8 fL (78.0-98.0) 02/25/20 14:09 Plt Count 96 thou/uL (130-400) L 02/25/20 14:09 Neutrophils % 85.8 % (42.0-75.0) H 02/25/20 14:09 Sodium 139 mmol/L (136-145) 02/25/20 14:48 Potassium 4.0 mmol/L (3.5-5.1) 02/25/20 14:48 Chloride 99 mmol/L (98-107) 02/25/20 14:48 Carbon Dioxide 27 mmol/L (23-31) 02/25/20 14:48 BUN 31 mg/dL (8.4-25.7) H 02/25/20 14:48 Creatinine 1.48 mg/dL (0.7-1.3) H 02/25/20 14:48 Glucose 123 mg/dL (83-110) H 02/25/20 14:48 Calcium 9.9 mg/dL (7.8-10.44) 02/25/20 14:48 Total Bilirubin 1.8 mg/dL (0.2-1.2) H 02/25/20 14:48 AST 13 U/L (5-34) 02/25/20 14:48 ALT 7 U/L (8-55) L 02/25/20 14:48 Alkaline Phosphatase 77 U/L (40-110) 02/25/20 14:48 Serum Total Protein 7.4 g/dL (5.8-8.1) 02/25/20 14:48 Albumin 3.7 g/dL (3.4-4.8) 02/25/20 14:48 Lipase Less than 4 U/L (8-78) L 02/25/20 14:48 - Radiology Interpretation CT scan - abdomen Status: image reviewed by me, report reviewed by me Additional comment: SBO w/ transition point likely in ileum Abdominal x-ray Status: image reviewed by me, report reviewed by me Additional comment: dilated loops of small bowel FMR H&P: A/P - Problem List (1) Small bowel obstruction Current Visit: Yes Status: Acute Code(s): K56.609 - UNSP INTESTNL OBST, UNSP TO PARTIAL VERSUS COMPLETE OBST (2) LENIN (acute kidney injury) Current Visit: Yes Status: Acute Code(s): N17.9 - ACUTE KIDNEY FAILURE, UNSPECIFIED (3) Dyslipidemia Current Visit: No Status: Chronic Code(s): E78.5 - HYPERLIPIDEMIA, UNSPECIFIED (4) H/O prostate cancer Current Visit: No Status: Chronic Code(s): Z85.46 - PERSONAL HISTORY OF MALIGNANT NEOPLASM OF PROSTATE (5) HTN (hypertension) Current Visit: No Status: Chronic Code(s): I10 - ESSENTIAL (PRIMARY) HYPERTENSION Qualifiers: Hypertension type: essential hypertension Qualified Code(s): I10 - Essential (primary) hypertension - Plan 84 yo M admitted for: Small Bowel Obstruction - General surgery consulted by ER. Appreciate recs. - small bowel follow through pending. - CT abd w/ dilated loops of bowel - Abdominal x-ray consistent w/ CT - strict NPO - strict I/Os - pain control w/ morphine - zofran for nausea/vomiting - medical management. Consider NG if vomiting. LENIN on CKD - creatinine above baseline - in setting of HFrEF, MIVF of LR. - monitor w/ AM labs HFrEF w/ pacemaker - pacemaker in place - history of EF 25% documented in clinic records - continue entresto, coreg - hold lasix Prediabetes - monitor HLD - not on statin. Monitor. Code: FULL VTE ppx: none, pending surgery recs. SCDs only GI ppx: none Fluids: LR at 115 mL/hr Disposition/LOS: admit to inpatient, surgical floor. LOS > 48 H. FMR H&P: Upper Level - Plan Date/Time: 02/25/20 6910 I, Yogi Figueroa MD, have evaluated this patient and agree with findings/ plan as outlined by finance intern resident. Pertinent changes/additions are listed here. SBO - General Surgery consulted - NPO - Small bowel follow through pending - Consider NG tube as needed - Pain control and IVF supportive care LENIN - IVF and recheck in AM All other chronic conditions reviewed and medications to be restarted as appropriate PCP: ELIDA CODE STATUS: FULL CODE Disposition: Stable, will admit for further surgical evaluation. Addendum - Attending - Attending Attestation Date/Time: 02/25/20 3769 I personally evaluated the patient and discussed the management with Dr. Kirk /Henry. I agree with the History, Examination, Assessment and Plan documented above with any addition or exceptions noted below. Patient here with abdominal pain and report of constipation. He denies any abdominal surgeries. Continued to have pain so presented for eval. Vitals overall stable, labs not majorly contributory, possible LENIN. Exam shows diffuse abdominal pain with mild distension noted. CT shows SBO with possible transition point in the ileum. Deflated colon. Patient to be admitted for SBO. Surgery on board. Small bowel follow through. Further mgmt pending clinical course. IVF, pain control, ?NGT decompression pending surgery recommendations.
[2020-02-25] MEDS ORDERED: Ondansetron PF 4 MG/2 ML Vial IVP PRN (16:07)
[2020-02-25] MEDS ORDERED: Morphine 2 MG/ML SYRINGE SLOW IVP PRN (16:07)
[2020-02-25] MEDS ORDERED: Lactated Ringer's 1,000 ML IV SCH (16:15)
[2020-02-25] MEDS: Carvedilol 25 MG TAB PO SCH (20:12)
[2020-02-25] MEDS: Lactated Ringer's 1,000 ML IV SCH (20:12)
--- NOTE | 2020-02-25 20:40 | RAD ---
GASTROGRAFIN SMALL BOWEL FOLLOW THROUGH: 02/25/20 INDICATION: History of lower abdominal pain and constipation. COMPARISON: CT of the abdomen and pelvis dated 02/25/20. FINDINGS: The small bowel evaluation was performed over four hours. The administered gastrografin contrast abrahan ls numerous dilated loops of small bowel without significant migration of the contrast beyond the mid abdomen through the four hour marleni. A small amount of gas is seen within the region of the colon. Th ere is a mild amount of excreted contrast within the renal collecting system likely from the patient' s prior CT of the abdomen and pelvis. There is scattered degenerative change. There is partial visual ization of a single lead AICD involving the heart. There is moderate cardiomegaly. IMPRESSION: Findings suspicious for a high grade partial small bowel obstruction without significant migration of contrast beyond the mid abdomen by the four hour time marleni. POS: BH
--- NOTE | 2020-02-26 01:22 | PRG ---
DATE OF SERVICE: 02/26/2020 SUBJECTIVE: The patient is currently on the Medicine Floor. He is the patient we are seeing in consultation for a suspected small-bowel obstruction. The patient was admitted to the hospital today after complaining of constipation and upon CT evaluation, showed suspicion for small bowel obstruction. A KUB confirmed dilated loops of small bowel. At the time of my visit, the patient had completed his small bowel follow-through that was suspicious for a high-grade partial small-bowel obstruction without significant migration of contrast beyond the mid abdomen by the 4-hour marleni. At the time of my visit, the patient denied nausea or vomiting. He states that he feels he has passed "a little gas." PHYSICAL EXAMINATION: VITAL SIGNS: Stable. The patient is afebrile. GENERAL: The patient is resting comfortably in bed. He was asleep at the time of my visit, but awaken for my exam. ABDOMEN: His bowel sounds were hypoactive. His abdomen was nondistended and nontender. ASSESSMENT AND PLAN: Possible small bowel obstruction. Plan will be to continue n.p.o. status. If the patient becomes significantly nauseated or begins vomiting, we would recommend nasogastric tube at that time. Encourage out of bed, ambulation, and we will repeat a KUB in the morning to check on the progress of the contrast. Otherwise, continue supportive care per the primary team. Job ID: [id number]
[2020-02-26] MEDS: Lactated Ringer's 1,000 ML IV SCH ×3 (03:28→17:15)
[2020-02-26 06:10] LABS: Hemoglobin 19.2 g/dL (14.0-18.0); Mean Corpuscular HGB CONC 31.6 g/dL (32.0-36.0); Mean Corpuscular Volume 91.7 fL (78.0-98.0); RBC Distribution Width 12.7 % (11.5-14.5); Red Blood Cell (RBC) Count 6.64 mill/uL (4.70-6.10)
[2020-02-26 06:20] LABS: Calcium 10.2 mg/dL (7.8-10.44); Chloride 103 mmol/L (98-107); Potassium 4.4 mmol/L (3.5-5.1); Sodium 143 mmol/L (136-145)
--- NOTE | 2020-02-26 06:24 | PDOC.FM ---
- Subjective Subjective: Pt denies N/V/diarrhea. No acute change overnight. - Objective MAR Reviewed: Yes Vital Signs & Weight: Vital Signs (12 hours) Temp Pulse Resp BP Pulse Ox 02/26/20 03:15 97.5 F L 93 18 103/71 92 L 02/25/20 20:00 95 02/25/20 19:10 97.5 F L 82 18 129/85 95 Weight Weight 75.206 kg I&O: 02/24/20 02/25/20 02/26/20 06:59 06:59 06:59 Intake Total 1250 Balance 1250 Result Diagrams: 02/26/20 05:35 02/26/20 07:29 Phys Exam - Physical Examination Constitutional: NAD Respiratory: clear to auscultation bilateral Cardiovascular: RRR (2/6 systolic murmur best heard over RUSB) nondistended, tympanic to percussion, involuntary guarding. Mild TTP. Psychiatric: A&O x 3 Dx/Plan (1) Small bowel obstruction Code(s): K56.609 - UNSP INTESTNL OBST, UNSP TO PARTIAL VERSUS COMPLETE OBST Status: Acute (2) LENIN (acute kidney injury) Code(s): N17.9 - ACUTE KIDNEY FAILURE, UNSPECIFIED Status: Acute (3) Dyslipidemia Code(s): E78.5 - HYPERLIPIDEMIA, UNSPECIFIED Status: Chronic (4) H/O prostate cancer Code(s): Z85.46 - PERSONAL HISTORY OF MALIGNANT NEOPLASM OF PROSTATE Status: Chronic (5) HTN (hypertension) Code(s): I10 - ESSENTIAL (PRIMARY) HYPERTENSION Status: Chronic Qualifiers: Hypertension type: essential hypertension Qualified Code(s): I10 - Essential (primary) hypertension - Plan Plan: 84 yo M admitted for: Small Bowel Obstruction - General surgery consulted by ER. Appreciate recs. - small bowel follow through showing no progression of contrast past colon. KUB this AM suspicious for complete obstruction. - strict NPO - strict I/Os - pain control w/ morphine - zofran for nausea/vomiting - medical management. Consider NG if vomiting. LENIN on CKD - creatinine above baseline - in setting of HFrEF, MIVF of LR. - monitor w/ AM labs HFrEF w/ pacemaker - pacemaker in place - history of EF 25% documented in clinic records - continue coreg - hold lasix, entresto, aspirin pending if pt needs OR Prediabetes - monitor HLD - not on statin. Monitor. Code: FULL VTE ppx: none, pending surgery recs. SCDs only GI ppx: none Fluids: LR at 150 mL/hr Disposition/LOS: admit to inpatient, surgical floor. LOS > 48 H. Addendum - Attending - Attending Attestation Date/Time: 02/26/20 1831 I personally evaluated the patient and discussed the management with Dr. Kirk. I agree with the History, Examination, Assessment and Plan documented above with any addition or exceptions noted below. Patient unchanged. Moving to CCU due to hypotension associated with massive NGT output. Surgery on board. Needs aggressive fluid resuscitation. Likely ex-lap in the near future.
[2020-02-26 06:33] LABS: Mean Platelet Volume 12.9 fL (7.4-10.4); Platelet Count 98 thou/uL (130-400); White Blood Cell (WBC) Count 8.6 thou/uL (4.8-10.8)
[2020-02-26 06:35] LABS: Band 30 % (5-11); Large Platelets SLIGHT; Lymphocytes 10 % (21-51); MDiff Complete? YES; Metamyelocyte 2 % (0-0); Monocytes 5 % (0-10); Neutrophil 53 % (42-75); Platelet Morphology Comment Appears Decreased
--- NOTE | 2020-02-26 08:18 | RAD ---
KUB: Comparison: Small bowel follow through, 02-25-2020. History: Small bowel obstruction. FINDINGS: Single view of the abdomen shows contrast still present within multiple small bowel loops and within the stomach. This is not definitely seen within the colon. IMPRESSION: Findings are concerning for a complete small bowel obstruction as contrast has not yet passed into th e colon. POS: EAA
[2020-02-26] MEDS: Carvedilol 25 MG TAB PO SCH ×3 (08:31→20:09)
[2020-02-26 08:48] LABS: Anion Gap 26 mmol/L (10-20); BUN (Urea Nitrogen) 42 mg/dL (8.4-25.7); Calc. Creatinine Clearance 39 mL/min (70-130); Carbon Dioxide 15 mmol/L (23-31); Estimated GFR-MDRD 54; Glucose 110 mg/dL (83-110); Magnesium 2.1 mg/dL (1.6-2.6)
[2020-02-26] MEDS ORDERED: Norepinephrine 8 MG/0.9% NS 0 ML ONE (11:19)
[2020-02-26] MEDS ORDERED: Succinylcholine Chloride 20 MG/ML 10 ml SYRINGE FS ONE (11:22)
[2020-02-26] MEDS ORDERED: PROPOFOL 200 MG/20 ML VIAL ONE (11:22)
[2020-02-26] MEDS ORDERED: Rocuronium Bromide 10 MG/ML (10ML VIAL) ONE (11:22)
[2020-02-26 12:02] LABS: Actual Bicarbonate (HCO3a) 22.4 mEq/L (22-28); Base Excess (BEa) -2.3 mEq/L (-2.0 to +3.0); CO2 Tension 38.5 mmHg (35.0-45.0); Calcium, Ionized 1.16 mmol/L (1.12-1.30); Carboxyhemoglobin (COHb) 1.5 gm% (0.0-3.0); Hemoglobin (Hb) 17.3 g/dL (14.0-18.0); O2 Tension (PaO2), arterial 66.3 mmHg (> 60.0); Potassium - ABG Lab 4.08 mmol/L (3.70-5.30); pH, Arterial 7.38 (7.35-7.45)
[2020-02-26 12:05] LABS: ALV-art Gradient 142.255 (0-20); Puncture Site RBA
--- NOTE | 2020-02-26 12:12 | RAD ---
EXAM: CHEST ONE VIEW HISTORY: Fluid overload COMPARISON: 10/13/2018 FINDINGS: Nasogastric tube is noted in place with tip overlying the expected location of the body of the stomac h. Single lead left subclavian AICD device is now noted in place. Right subclavian central venous catheter is noted in place with tip overlying the expected location of the distal SVC. No pneumothora x is seen. Cardiac silhouette is magnified by projection but does appear mildly enlarged. There are patchy parenchymal airspace opacities and interstitial densities seen at each lung base greater on th e left. Gaseous distention and mild dilatation of loops of small bowel in the upper abdomen are seen. Gas is present within the visualized hepatic and splenic flexures. IMPRESSION: 1. Patchy airspace opacities at each lung base greater on the left. Findings may be related to pneumo lizzette and possibly atypical pneumonia or viral pneumonitis. Aspiration pneumonitis is a possibility. Continued follow-up is recommended to ensure resolution of parenchymal opacities at each lung base. 2. Cardiomegaly. 3. Lines and tubes in place as described above.
--- NOTE | 2020-02-26 12:30 | PDOC.CNTRL ---
Central Line Procedure Note - Procedure Date: 02/26/20 Time: 11:00 - PreProcedure Diagnosis: Hypotension - PostProcedure Diagnosis: Hypotension, improved - Description Focused site: subclavian vein: Right Ultrasound guidance: No Patient tolerated procedure: no complications Procedure in Details: INDICATION: Hypotension, in setting of hypovolemia and small bowel obstruction PROCEDURE SHAKE CUTTER: Mary Kirk MD ATTENDING PHYSICIAN: Dr. Cole, in attendance and assisted for the duration of the procedure CONSENT: Consent was obtained from the patient verbally prior to the procedure due to the urgency of patient's clinical status. PROCEDURE SUMMARY: Patient was given 2 liters of normal saline and transferred to the ICU. Sterile technique was observed throughout the procedure. Surgical cap, mask, sterile gown and sterile gloves were worn throughout the procedure. The patient was placed in Trendelenburg position. The right chest region was prepped using chlorhexidine scrub and draped in sterile fashion using a full drape. Anesthesia was achieved with 1% lidocaine. The introducer needle was inserted approximately two centimeters lateral to and 1 cm inferior to the normal curvature of the patient's right clavicle. Venous blood was withdrawn. A guidewire was advanced through the syringe and the introducer needle. The syringe and introducer needle were then removed with guidewire in place. A small incision was made at the skin surface with a scalpel. A dilator was placed over the guidewire. After appropriate dilation was obtained, the dilator was exchanged over the wire for a triple lumen central venous catheter. The wire was removed and the catheter was sutured in place at 15 cm using a 3-0 silk suture. A sterile shield and dressing was placed over the catheter at the insertion site. The patient tolerated the procedure without any hemodynamic compromise. At time of procedure completion, all ports were aspirated and flushed properly. Post-procedure chest x-ray was reviewed with Dr. Cole. The tip of the catheter was visualized in the right atrium through the superior vena cava. No pneumothorax was seen. Official read is pending. Estimated blood loss was minimal. Addendum - Attending - Attending Attestation Date/Time: 02/27/20 0957 I personally evaluated the patient and discussed the management with I was present throughout the procedure. Pt remained stable upon completion of the line placement. CXR shows proper placement and no pneumothorax.
[2020-02-26 13:02] LABS: Bilirubin Negative (Negative); Blood, Urine 1+ (Negative); Clarity Turbid (Clear); Glucose, Urine (Dipstick) Normal (Negative); Leukocyte 25 Leu/uL (Negative); Nitrite Negative (Negative); Protein, Urine (Dipstick) 30 mg/dL (Neg-Trace); Squamous Epithelial 0-3 HPF (0-3)
[2020-02-26 13:03] LABS: Lactic Acid 2.9 mmol/L (0.5-2.2)
[2020-02-26 13:03] LABS: Bacteria/HPF 1+ HPF (None Seen)
[2020-02-26 13:05] LABS: Urine Culture Reflex Yes Yes
[2020-02-26 13:08] LABS: Troponin I 0.693 ng/mL (< 0.028)
[2020-02-26 13:09] LABS: Anion Gap 16 mmol/L (10-20); BUN (Urea Nitrogen) 45 mg/dL (8.4-25.7); Calc. Creatinine Clearance 34 mL/min (70-130); Calcium 9.3 mg/dL (7.8-10.44); Carbon Dioxide 25 mmol/L (23-31); Chloride 104 mmol/L (98-107); Estimated GFR-MDRD 47; Glucose 92 mg/dL (83-110); Magnesium 1.9 mg/dL (1.6-2.6); Potassium 4.2 mmol/L (3.5-5.1); Sodium 141 mmol/L (136-145)
--- NOTE | 2020-02-26 13:43 | PDOC.BPN ---
- Brief Progress Note Patient transferred to ICU this AM for hypotension following 4 L NG tube output. Given 2L NS and central line placed. Obion Text from RN at 13:10 that Troponin was 0.693. Went to evaluate pt. VS: HR 75, BP 79/48, RR 28, 92% O2 on 3L NC. Patient denies pain or chest pain. He is difficult to elicit symptoms from. Dr. Cole present at bedside and plans to taken pt for urgent surgery this afternoon. He called family members via telephone and consented them for exploratory laparotomy. Will likely consult cardiology pending outcome of ex lap. Troponins ordered to trend q4h. Stat ECHO ordered per Dr. Cole.
[2020-02-26] MEDS ORDERED: Hydrocortisone Sod Succ/PF 100 mg/2 ml Vial IVP SCH ×2 (13:45→18:00)
[2020-02-26] MEDS: MEROPENEM 1 GM/50 ML 1 GM in Premix Bag 1 BAG IVPB SCH ×2 (13:54→21:40)
[2020-02-26] MEDS ORDERED: Fentanyl 250 MCG/5 ML VIAL ONE (14:02)
[2020-02-26] MEDS ORDERED: Rocuronium Bromide 50 MG/5 ML VIAL ONE (14:02)
[2020-02-26] MEDS ORDERED: Sodium Bicarb 50 MEQ/50 ML VIAL ONE (14:03)
[2020-02-26] MEDS ORDERED: Norepinephrine 4 MG/4 ML VIAL ONE ×2 (14:41→14:43)
[2020-02-26] MEDS ORDERED: Midazolam HCl 2 mg/2 ml Vial ONE (15:43)
--- NOTE | 2020-02-26 15:55 | CON ---
DATE OF CONSULTATION: 02/26/2020 REQUESTING PHYSICIAN: Mary Kirk MD HISTORY OF PRESENT ILLNESS: Mr. Silva is an 84-year-old man, who was admitted yesterday. The patient has history of senile dementia of Alzheimer's type, but he is a poor historian. Part of the history is obtained from the patient, combined with the chart review. The patient reports a 2- to 3-day history of inability to have bowel movement and this is associated with progressive abdominal pain. He reports multiple bouts of small-volume emesis. He is intermittently nauseated over the last 24 hours. The patient denies any fevers or chills. PAST MEDICAL HISTORY: Pertinent for: 1. Senile dementia of Alzheimer's type. 2. Essential hypertension. 3. Hyperlipidemia. 4. Type 2 diabetes mellitus. 5. Chronic kidney disease. 6. Cardiac dysrhythmia. PAST SURGICAL HISTORY: Pertinent for: 1. Prostatectomy. 2. Bilateral intraocular lens implant. 3. Pacemaker implantation. FAMILY HISTORY: Noncontributory for this patient's age. SOCIAL HISTORY: He is an almost [id number] cigarette smoker over 20 years. He has not smoked over the last 10 years. The patient admits to occasional intake of ethanol in moderate amounts and denies any illicit drug abuse. PREHOSPITALIZATION MEDICATIONS: Includes: 1. Aspirin 325 mg p.o. daily. 2. Furosemide 40 mg p.o. daily. 3. Entresto 49/51 mg p.o. b.i.d. 4. Carvedilol 12.5 mg p.o. b.i.d. ALLERGIES: TO PENICILLIN. REVIEW OF SYSTEMS: Ten-point review of systems essentially unremarkable except as stated in past medical history and chief complaint. PHYSICAL EXAMINATION: GENERAL: This reveals an 84-year-old normally developed man who is otherwise coherent and interactive and appears stated age. The patient is alert to person and place and appears to be in no acute distress at the time of my evaluation. VITAL SIGNS: Blood pressure 87/58, pulse is 80 and irregular, respiratory rate is 33, maximum temperature in the last 24 hours is 97.8 degrees Fahrenheit, oxygen saturation was 82% on room air and improved to 96% on 3 L by nasal cannula oxygen. It must be noted that during the course of my evaluation the patient's blood pressure dipped to 60/39, at which time the patient was given a bolus of lactated Ringer's 1 L with a slight improvement in blood pressure. HEENT: The patient has no scleral icterus present. He has no jugular venous distention noted. HEART: Irregular rate and irregular rhythm. LUNGS: Bibasilar rhonchi. Breathing regular and nonlabored. ABDOMEN: Soft, moderately distended and tender to palpation. He does not have any rebound tenderness present. Bowel sounds are hypoactive. Liver and spleen nonpalpable below costal margin. EXTREMITIES: Thready bilateral radial and pedal pulses. No ankle edema is present. NEUROLOGIC: No focal deficits present. LABORATORY FINDINGS: Today include a CBC with 8600 white blood cells, hemoglobin and hematocrit 19.2 and 60.9 respectively, and platelet count is 98,000. Differential counts; 53 segmented neutrophils, 30 bands, 10 lymphocytes, and 5 monocytes. Metabolic profile: Sodium 141, potassium is 4.2, chloride is 104, bicarb is 15, BUN is 42, creatinine is 1.49, and glucose is 110. Magnesium 2.1. Phosphorus 4.0. Troponin I elevated at 0.693. Procalcitonin is markedly elevated at 27.10. Serum cortisol level is 58. IMAGING STUDIES: I have reviewed the CT scan of the abdomen and pelvis, which was obtained yesterday, which reveals multiple distended loops of small bowel. There is scattered gas in the colon and rectum. A small-bowel follow-through, which was subsequently obtained, reveals no contrast present in the colon at almost 24 hours. A nasogastric tube was placed by myself and immediately returned over 3.5 L of arturo-colored foul-smelling succus entericus. IMPRESSIONS: 1. Acute small-bowel obstruction, likely secondary to intra-abdominal adhesions versus neoplastic process. 2. Acute hypovolemic shock. 3. Acute kidney injury. 4. Acute lactic acidosis with lactate of 2.9. 5. Acute septic shock, likely secondary to bacterial translocation. RECOMMENDATIONS: 1. Aggressive fluid resuscitation. 2. Appropriate septic workup is initiated including blood and urine cultures. 3. We will initiate broad-spectrum antibiotic therapy. 4. The patient warrants exploratory laparotomy with indicated procedures, which may include a bowel resection. 5. We will obtain 2D echocardiography to evaluate cardiac function, chamber size, and wall motion abnormalities, which may necessitate further cardiologic intervention. 6. I think that the emergency exploratory laparotomy is warranted at this time prior to any further workup as I am concerned that this patient may have compromised bowel with regard to blood supply. Above findings and plan has been discussed with the patient and his son via telephone conversation. The patient and his son have granted consent for surgical intervention. Thank you again, Dr. Kirk, for allowing me the opportunity to participate in the care of this patient. Total critical care time is 55 minutes. Job ID: [id number]
[2020-02-26] MEDS ORDERED: Albumin 5% 500 ML ONE (15:58)
[2020-02-26] MEDS ORDERED: fentaNYL Citrate/PF 2,000 MCG in Sodium Chloride 0.9% 60 ML IV SCH (16:48)
[2020-02-26 16:49] LABS: Base Excess (BEa) -6.3 mEq/L (-2.0 to +3.0); CO2 Tension 28.6 mmHg (35.0-45.0); Carboxyhemoglobin (COHb) 1.7 gm% (0.0-3.0); Hemoglobin (Hb) 15.4 g/dL (14.0-18.0); Puncture Site ALINE; pH, Arterial 7.39 (7.35-7.45)
--- NOTE | 2020-02-26 16:50 | RAD ---
EXAM: CHEST ONE VIEW HISTORY: Post intubation COMPARISON: 02/26/2020 FINDINGS: There has been interval placement of an endotracheal tube with tip overlying the T4-5 level and above the level of the jaylin. Right subclavian central venous catheter and nasogastric tubes remain in place. Single lead left subclavian AICD device is also again noted in place. There are patchy airspac e opacities again seen in each lung base which have increased on the right. Findings again may be related to bilateral pneumonia and possibly atypical pneumonia. Viral pneumonitis in the correct clin ical scenario is also a possibility. Aspiration pneumonitis is also a differential consideration. No other interval change. IMPRESSION: 1. Interval placement of endotracheal tube. Remaining lines and tubes are stable in place. 2. Patchy bilateral airspace opacities at each lung base which have increased on the right. Findings again may be related to pneumonia and possibly atypical pneumonia. Viral pneumonitis in the correct clinical scenario is a possibility. Aspiration pneumonitis is also a consideration. Follow-up to [facility] is recommended.
[2020-02-26] MEDS ORDERED: Calcium Chloride 13.6 MEQ in Sodium Chloride 0.9% 100 ML IVPB SCH (17:00)
[2020-02-26] MEDS ORDERED: Vasopressin 40 UNIT, Admixture Fee 1 EACH in Sodium Chloride 0.9% 100 ML IV SCH (17:00)
[2020-02-26] MEDS ORDERED: Sodium Bicarb 50 MEQ/50 ML Abboject 8.4% SYRINGE ONE (17:27)
[2020-02-26 17:57] LABS: Lactic Acid 2.1 mmol/L (0.5-2.2)
[2020-02-26 18:01] LABS: Critical Call Chem Troponin I RESULT DECREASING
[2020-02-26] MEDS ORDERED: Sodium Chloride 0.9% 500 ML IV SCH (18:15)
[2020-02-26] MEDS: Sodium Bicarb 50 MEQ/50 ML Abboject 8.4% SYRINGE IVP SCH ×2 (18:41)
--- NOTE | 2020-02-26 18:59 | OP ---
DATE OF PROCEDURE: 02/26/2020 PREOPERATIVE DIAGNOSIS: Acute small-bowel obstruction. POSTOPERATIVE DIAGNOSES: 1. Acute small-bowel obstruction secondary to internal hernia. 2. Acute strangulated small bowel secondary to #1. OPERATIONS PERFORMED: 1. Exploratory laparotomy. 2. Segmental small-bowel resection with primary anastomosis. ANESTHESIA: General endotracheal. ESTIMATED BLOOD LOSS: 50 mL. FLUIDS GIVEN: 1600 mL of crystalloids and 500 mL of 5% albumin. COUNTS: Sponge and instrument counts were verified as correct x2. COMPLICATIONS: None apparent at the time of operation. INDICATIONS FOR OPERATION: Mr. Silva is an 84-year-old man who presented with 2-day history of inability to have bowel movement associated with progressive abdominal pain. The patient is a poor historian with a history of senile dementia of Alzheimer's type. Clinical and radiographic examination were consistent with acute small-bowel obstruction, which we attempted to manage conservatively. The patient developed circulatory collapse, and decision was made to bring him to the operating room for exploration. Findings are consistent with a strangulated segment of distal ileum, approximately a foot and half in length. DESCRIPTION OF PROCEDURE: Informed consent was obtained from the patient and his son. The patient was brought to the operating room and placed in supine position. Following general anesthesia, abdomen was sterilely prepped and draped in usual fashion. The previous Azevedo catheter was placed to bedside drain. The previous nasogastric tube was placed to wall suction. A midline incision was then made using a 10 scalpel. Incision was carried through subcutaneous tissues, maintaining hemostasis using cautery. Fascia was incised in the midline along the line of the incision, exposing the peritoneum, beneath which was grasped x2 with hemostats. The peritoneal cavity was sharply entered using Metzenbaum scissors. Cloudy ascitic fluid was evacuated. Bookwalter retractor was put in place to gain exposure. Small bowel was then run from ligament of Treitz down to the level of the distal ileum, where a segment of small bowel was completely obstructed in a closed-loop fashion by a single adhesive band. Once the band was excised, I created a rent through the mesentery proximal and distal to the involved strangulated bowel, through which a HERON stapler was introduced and bowel was divided. Mesentery of the specimen was sterilely divided using LigaSure device with good hemostasis. Specimen was passed off for pathology. The abdomen was irrigated in all 4 quadrants until it was clear. I then decided to reapproximate the small bowel in a [id number] fashion, antimesenteric border using interrupted sutures of 3-0 silk. Enterotomies were made at both apices, through which free ends of HERON stapler was introduced and functional end-to-end but anatomic [id number] enteroenterostomy was perfected. Common enterotomy was closed using a reload of HERON stapler. Resultant mesenteric defect was closed using a running stitch of 2-0 Vicryl. The abdomen was again irrigated, noting good hemostasis in place. Previous nasogastric tube was palpated in the gastric lumen. Finding no other pathology, exploration was terminated. I palpated the entire length of the large intestine, inspected this from the cecum through the ascending, transverse, descending, sigmoid colon, and rectum. No palpable abnormalities. Liver was palpated free of any abnormalities. An ectatic spleen was noted in the usual anatomic location. Omentum was drawn over the entire viscera. A #19 Tejinder drain was introduced into the right lateral gutter with the tip residing in the pelvis. This was allowed to exit the abdominal cavity through a separate stab incision. The drain was secured to anterior abdominal wall using 2-0 silk suture. Fascia was approximated in the midline using a running stitch of #1 single stranded PDS. Subcutaneous tissue was irrigated and clear with saline, perfected, and hemostasis using cautery. Skin incision was closed using jael. Sterile dressings were applied. The patient tolerated this operation without any apparent complication and was returned to the intensive care unit in critical, but stable condition. Job ID: [id number]
[2020-02-26 20:23] LABS: Anion Gap 16 mmol/L (10-20); BUN (Urea Nitrogen) 45 mg/dL (8.4-25.7); Calc. Creatinine Clearance 37 mL/min (70-130); Carbon Dioxide 24 mmol/L (23-31); Chloride 108 mmol/L (98-107); Estimated GFR-MDRD 52; Glucose 102 mg/dL (83-110); Magnesium 1.7 mg/dL (1.6-2.6); Phosphorus 3.3 mg/dL (2.3-4.7); Sodium 144 mmol/L (136-145)
[2020-02-26 20:33] LABS: Band 50 % (5-11); Hemoglobin 15.1 g/dL (14.0-18.0); Hypochromia SLIGHT = 6-15 cells (100X) (0-5/hpf); Large Platelets SLIGHT; Lymphocytes 10 % (21-51); MDiff Complete? YES; Mean Corpuscular HGB CONC 31.1 g/dL (32.0-36.0); Mean Corpuscular Hemoglobin 28.8 pg (27.0-31.0); Mean Corpuscular Volume 92.6 fL (78.0-98.0); Mean Platelet Volume 12.4 fL (7.4-10.4); Metamyelocyte 5 % (0-0); Monocytes 6 % (0-10); Myelocyte 4 % (0-0); Neutrophil 11 % (42-75); Platelet Count 94 thou/uL (130-400); Platelet Morphology Comment Appears Decreased; Polychromasia SLIGHT = 2-3 cells (100X) (0-2/hpf); RBC Distribution Width 12.5 % (11.5-14.5); Reactive Lymphocytes 14 % (0-10); Red Blood Cell (RBC) Count 5.23 mill/uL (4.70-6.10); White Blood Cell (WBC) Count 3.3 thou/uL (4.8-10.8)
--- NOTE | 2020-02-26 21:39 | EKG ---
Test Reason : Blood Pressure : / mmHG Vent. Rate : 074 BPM Atrial Rate : 074 BPM P-R Int : 168 ms QRS Dur : 104 ms QT Int : 412 ms P-R-T Axes : 045 -60 089 degrees QTc Int : 457 ms Sinus rhythm with occasional Premature ventricular complexes Possible Left atrial enlargement Left axis deviation Low voltage QRS Inferior infarct , age undetermined Abnormal ECG When compared with ECG of 13-OCT-2018 17:55, Premature atrial complexes are no longer Present Inferior infarct is now Present Confirmed by SERGEI SANTOS, DR. Quiñonez ([id number]) on 02/26/2020 9:39:24 PM Referred By: THONG Confirmed By:DR. Khang MAI MD
[2020-02-26] MEDS ORDERED: Magnesium Sulfate 3 GM in Sodium Chloride 0.9% 250 ML 250 ML IVPB SCH (22:00)
--- NOTE | 2020-02-27 01:20 | PRG ---
DATE OF SERVICE: 02/27/2020 SUBJECTIVE: The patient is currently on the Critical Care Unit. He is the patient we were seeing in consultation for a small bowel obstruction. Today, he underwent exploratory laparotomy and a segmental small bowel resection with primary anastomosis. He was kept on the ventilator postoperatively due to his hypotension likely related to septic shock. The patient has had aggressive fluid resuscitation to include albumin, crystalloids, and is currently on Levophed and vasopressin. At the time of my visit, the patient's urinary output was approximately 30 to 60 depending on the hour. He was also given a second bolus of albumin. OBJECTIVE: VITAL SIGNS: Heart rate is primarily in the 70s, systolic blood pressure on his vasopressors is in the 90s. The patient is currently afebrile. GENERAL: The patient is resting comfortably in bed. He at the time of my visit was awake and able to follow commands. He was taking a deep breath for me and squeezing my hand. He nodded that he was not in any pain. LUNGS: Had scattered rhonchi bilaterally. HEART: Regular rate and rhythm. ABDOMEN: Slightly distended. His midline dressing is clean, dry, and intact. Bowel sounds were absent. EXTREMITIES: Neurovascularly intact x4. No evidence of pitting edema. ASSESSMENT: 1. Status post acute small-bowel obstruction secondary to internal hernia. 2. Acute strangulated small bowel secondary to #1. 3. Status post exploratory laparotomy with segmental small bowel resection and primary anastomosis. PLAN: Plan will be to continue supportive care, full mechanical ventilatory support, resuscitation using his MAP and urinary output to guide us. We will repeat labs in the morning, repeat his chest x-ray in the morning and wean from vasopressors when appropriate. Job ID: [id number]
[2020-02-27] MEDS: Lactated Ringer's 1,000 ML IV SCH ×3 (02:39→18:58)
[2020-02-27 04:04] LABS: Lactic Acid 1.9 mmol/L (0.5-2.2)
[2020-02-27 04:08] LABS: Anion Gap 15 mmol/L (10-20); BUN (Urea Nitrogen) 44 mg/dL (8.4-25.7); Calc. Creatinine Clearance 40 mL/min (70-130); Calcium 8.6 mg/dL (7.8-10.44); Carbon Dioxide 24 mmol/L (23-31); Chloride 109 mmol/L (98-107); Estimated GFR-MDRD 57; Glucose 132 mg/dL (83-110); Magnesium 2.5 mg/dL (1.6-2.6); Sodium 144 mmol/L (136-145)
[2020-02-27] MEDS: Norepinephrine 8 MG/0.9% NS 250 ML IVPB SCH ×2 (04:39→20:50)
[2020-02-27 04:56] LABS: Band 43 % (5-11); Hemoglobin 13.7 g/dL (14.0-18.0); Lymphocytes 22 % (21-51); MDiff Complete? YES; Mean Corpuscular HGB CONC 30.3 g/dL (32.0-36.0); Mean Corpuscular Hemoglobin 28.3 pg (27.0-31.0); Mean Corpuscular Volume 93.6 fL (78.0-98.0); Mean Platelet Volume 13.1 fL (7.4-10.4); Metamyelocyte 4 % (0-0); Monocytes 11 % (0-10); Myelocyte 3 % (0-0); Neutrophil 17 % (42-75); Platelet Count 99 thou/uL (130-400); Platelet Morphology Comment Appears Decreased; RBC Distribution Width 12.5 % (11.5-14.5); Red Blood Cell (RBC) Count 4.85 mill/uL (4.70-6.10)
[2020-02-27] MEDS: MEROPENEM 1 GM/50 ML 1 GM in Premix Bag 1 BAG IVPB SCH ×3 (05:10→22:08)
--- NOTE | 2020-02-27 06:01 | PDOC.FM ---
- Subjective Subjective: Pt is intubated. He opens his eyes to voice and commands. He seems to understand what I tell him. He nods his head. Pt on pressors and received albumin infusion overnight. - Objective MAR Reviewed: Yes Vital Signs & Weight: Vital Signs (12 hours) Temp Pulse Resp BP Pulse Ox 02/27/20 04:00 97.7 F 14 02/27/20 02:54 63 02/27/20 02:00 15 02/27/20 00:06 70 93/50 L 99 02/27/20 00:00 98.2 F 14 02/26/20 22:00 16 02/26/20 20:00 98.6 F 23 H 99 02/26/20 18:38 77 86/60 L 97 02/26/20 18:37 96 02/26/20 18:00 18 Weight Admit Weight 73.482 kg Weight 77.3 kg Most Recent Monitor Data Heart Rate from ECG 60 NIBP 91/52 NIBP BP-Mean 65 Respiration from ECG 20 SpO2 100 I&O: 02/25/20 02/26/20 02/27/20 06:59 06:59 06:59 Intake Total 1250 900 Output Total 2000 Balance 1250 -1100 Result Diagrams: 02/27/20 03:30 02/27/20 03:30 Phys Exam - Physical Examination Constitutional: NAD Respiratory: no wheezing, clear to auscultation bilateral Cardiovascular: RRR, no significant murmur hypoactive BS, marked TTP and withdraw from pain, less distended than prior Musculoskeletal: no edema, pulses present Psychiatric: normal affect Deviation from normal: midline abd incision w/ dressing in place, not disturbed. -: SHARDA drain in place w/ serosanguinous fluid. Dx/Plan (1) Small bowel obstruction Code(s): K56.609 - UNSP INTESTNL OBST, UNSP TO PARTIAL VERSUS COMPLETE OBST Status: Acute (2) LENIN (acute kidney injury) Code(s): N17.9 - ACUTE KIDNEY FAILURE, UNSPECIFIED Status: Acute (3) Dyslipidemia Code(s): E78.5 - HYPERLIPIDEMIA, UNSPECIFIED Status: Chronic (4) H/O prostate cancer Code(s): Z85.46 - PERSONAL HISTORY OF MALIGNANT NEOPLASM OF PROSTATE Status: Chronic (5) HTN (hypertension) Code(s): I10 - ESSENTIAL (PRIMARY) HYPERTENSION Status: Chronic Qualifiers: Hypertension type: essential hypertension Qualified Code(s): I10 - Essential (primary) hypertension - Plan Plan: 84 yo M admitted for: Small Bowel Obstruction 2/2 internal hernia/adhesive band POD #1 s/p ex lap, small bowel resection and primary anastamosis - General surgery consulted by ER. Raymundo recs. - strict NPO - strict I/Os - Intubated post-operatively. Fentanyl at 50 mcg/kg/hr - Vent settings: SIMV, FiO2 50%, RR 14, TV 500, PEEP 8, PS at 10. - procal 27.1. Meropenem started yesterday per general surgery. Blood and urine cultures pending. UA w/ blood and bacteria. - monitor drain output. 150mL of serosanguinous fluid since surgery. - monitor NG output. - urine output ~50 mL/hr. Hypotension, hypovolemia - levophed at 10, vasopressin at 0.04. - received albumin infusion 12.5g x2 overnight. - central line in place LENIN on CKD - continue fluids. Monitor. HFrEF w/ AICD - AICD in place - history of EF 25% documented in clinic records - hold coreg, lasix, entresto, aspirin - closely monitor fluid status Prediabetes - monitor HLD - not on statin. Monitor. Code: FULL Lines: R subclavian central line, Azevedo, PIV, Arterial line, SHARDA drain, NG tube, ET tube Pressors: levophed, vasopressin Diet: NPO, strict VTE ppx: none currently, pending surgery recs. SCDs only. GI ppx: none Fluids: LR at 125 mL/hr Dispo: admitted to ICU. Addendum - Attending - Attending Attestation Date/Time: 02/27/20 3827 I personally evaluated the patient and discussed the management with Dr. Kirk. I agree with the History, Examination, Assessment and Plan documented above with any addition or exceptions noted below. Patient critically ill but stable. Continue abx, general surgery managing post op care. Will need to monitor volume status closely due to his severe heart failure.
[2020-02-27 06:52] LABS: Actual Bicarbonate (HCO3a) 22.1 mEq/L (22-28); Base Excess (BEa) -1.4 mEq/L (-2.0 to +3.0); CO2 Tension 33.6 mmHg (35.0-45.0); Calcium, Ionized 1.13 mmol/L (1.12-1.30); Carboxyhemoglobin (COHb) 0.9 gm% (0.0-3.0); Hemoglobin (Hb) 13.9 g/dL (14.0-18.0); O2 Tension (PaO2), arterial 145.3 mmHg (> 60.0); Potassium - ABG Lab 3.85 mmol/L (3.70-5.30); pH, Arterial 7.44 (7.35-7.45)
[2020-02-27 06:55] LABS: Puncture Site LINE
--- NOTE | 2020-02-27 07:46 | RAD ---
Chest one view HISTORY: Sepsis. Follow-up. COMPARISON: 02/26/2020. FINDINGS: Cardiac silhouette is magnified and enlarged. Pulmonary vasculature upper limits of normal. Mediastinum is midline allowing for slight leftward rotation of the patient. Lines and tubes are unch anged in position. Focal areas of parenchymal opacity involving each lower lobe are similar in appearance to the prior s tudy, greater on the left than the right. No evidence of pneumothorax. IMPRESSION : Bilateral lower lobe infiltrates and other findings are stable.
[2020-02-27] MEDS ORDERED: Sodium Chloride 0.9% (PF) 10 ML VIAL FS PRN (08:33)
[2020-02-27] MEDS ORDERED: Pantoprazole 40 MG VIAL IVP SCH (09:00)
[2020-02-27] MEDS: Pantoprazole 40 MG VIAL IVP SCH (10:02)
[2020-02-27] MEDS: Carvedilol 25 MG TAB PO SCH ×2 (10:13→20:52)
--- NOTE | 2020-02-27 10:52 | PRG ---
DATE OF SERVICE: 02/27/2020 SUBJECTIVE: Mr. Silva is an 84-year-old man, who is postop day #1, status post exploratory laparotomy, segmental small bowel resection, primary anastomosis for acute small bowel obstruction with intestinal strangulation. Postoperatively, the patient has remained on vasopressor and inotropic support. He remains on full mechanical ventilator support overnight. This morning, he is awake and alert. Moves all extremities and follows commands. Urinary output is adequate for this patient's age and weight. He is currently on norepinephrine at 10 mcg/minute as well as vasopressin at 0.04 units/minute. OBJECTIVE: VITAL SIGNS: This morning include blood pressure 100/59, pulse is 66, respiratory rate is 14, maximum temperature last 24 hours is 98.6 degrees Fahrenheit, and oxygen saturation is 100% on FiO2 of 40%. HEENT: He has mild bilateral scleral edema present. There is no jugular venous distention noted. HEART: Reveals irregular rate and rhythm, but rate controlled. LUNGS: Reveals bibasilar rhonchi. Breathing regular and unlabored. ABDOMEN: Soft and nondistended. SKIN: Incision is intact, clean, and dry. Bert-Mckeon drain returns serous fluid. The patient has incisional tenderness to palpation with no peritoneal signs on examination. NEUROLOGIC: Reveals no focal deficits present. LABORATORY FINDINGS: This morning includes a CBC with 6000 white blood cells and hemoglobin and hematocrit 13.7 and 45.4 respectively. Platelet count is 99,000. Metabolic profile; sodium is 144, potassium is 4.0, chloride is 109, bicarb is 24, BUN is 44, and creatinine is improving at 1.44, this is in contrast to 1.56 yesterday. Magnesium is 2.5, phosphorus is 3.0, and serum lactate is normal at 1.9. IMPRESSION: 1. Postop day #1 status post exploratory laparotomy, segmental small bowel resection with primary anastomosis. 2. Septic shock, resolving. 3. Resolved acute lactic acidosis. 4. Resolving acute kidney injury, superimposing chronic kidney disease. 5. Acute respiratory failure, improving. PLAN: 1. Continue with mechanical ventilator support and begin ventilatory wean as the patient becomes more hemodynamically stable. 2. We will titrate the vasopressor support to maintain a mean arterial pressure in excess of 60, so long as the patient is awake and alert with adequate urinary output. Above findings and plan will be discussed with the patient's family by telephone conversation. TIME SPENT: Total critical care time is 40 minutes. Job ID: [id number]
[2020-02-27] MEDS ORDERED: Propofol 1,000 MG/100 ML VIAL IV ONE (12:18)
--- NOTE | 2020-02-27 16:10 | PQF ---
DATE: 02-27-20 ATTN: DR. KATERINE BENITO Please exercise your independent, professional judgment in responding to the clarification form. Clinical indicators are provided on the bottom of this form for your review Diagnosis: ACUTE SEPTIC SHOCK Present on Admission (POA): [ ] Yes [x] No [ ] Unable to determine For continuity of documentation, please document condition throughout progress notes and discharge summary. Thank You. CLINICAL INDICATORS - SIGNS / SYMPTOMS / LABS/ RESULTS AND LOCATION IN MR: ER DX: 02-26-20: ABD PAIN, SMALL BOWEL OBSTRUCTION H&P: 02-25-20: SBO LENIN, HTN PN DR. BENITO 02-26-20: TRANSFERRED TO ICU FOR HYPOTENSION, GIVEN 2L NS AND CL PLACED. VS: 75, 79/48, 28, 92% O2 ON 3L, PN DR. PRAKASH 02-27-20: POST OP DAY #1 EXP LAP, SEGMENTAL SMALL BOWEL RESECTION WITH PRIMARY ANASTOMOSIS, SEPTIC SHOCK, RESOLVING, RESOLVED ACUTE LACTIC ACIDOSIS, ACUTE RESPIRATORY FAILURE WBC: 02-25-20: 13.1 BANDS: 02-26-20: 30, 50 02-27-20: 43 LACTIC ACID 02-26-20: 2.9 RISK FACTORS / RSULTS AND LOCATION IN MR: PN DR. PRAKASH 02-27-20: POST OP DAY #1 EXP LAP, SEGMENTAL SMALL BOWEL RESECTION WITH PRIMARY ANASTOMOSIS, SEPTIC SHOCK, RESOLVING, RESOLVED ACUTE LACTIC ACIDOSIS, ACUTE RESPIRATORY FAILURE TREATMENT / RSULTS AND LOCATION IN MR: PN DR. BENITO 02-26-20: TRANSFERED TO ICU FOR HYPOTENSION, GIVEN 2L NS AND CL PLACED. MAR: 02-26-20: LR IVF, MEROPENEM IV, VASOPRESSIN IV (This form is maintained as a part of the permanent medical record) 2014 [employer]. All Rights Reserved BIANCA [email or web address] Cell [facility]
[2020-02-27] MEDS: Acetaminophen 500 MG TAB PO SCH ×2 (19:43→23:34)
[2020-02-27] MEDS ORDERED: Fentanyl 100 MCG/2 ML VIAL SLOW IVP PRN (21:51)
[2020-02-27] MEDS ORDERED: Heparin 5,000 UNITS/ML VIAL SC SCH (22:00)
[2020-02-27] MEDS ORDERED: Amiodarone 150 MG, Admixture Fee 1 EACH in Dextrose 5% in Water 100 ML IVPB SCH (23:15)
[2020-02-27] MEDS: Amiodarone 450 MG in Dextrose 5% in Water 250 ML IVPB SCH (23:19)
--- NOTE | 2020-02-27 23:26 | ULT ---
BILATERAL LOWER EXTREMITY VENOUS DOPPLER EVALUATION PROVIDED CLINICAL HISTORY: History of recent surgery concern for bilateral lower extremity deep venous thrombosis TECHNIQUE: Grayscale, color doppler and spectral doppler images were obtained of the common femoral , femoral, profunda femoral, popliteal and posterior tibial veins of both lower extremities. FINDINGS: There is normal compression, flow and augmentation seen with the deep venous structures within both l ower extremities. Normal-appearing inguinal lymph nodes are seen bilaterally. IMPRESSION: No sonographic evidence for lower extremity deep venous thrombosis.
--- NOTE | 2020-02-28 02:23 | PRG ---
DATE OF SERVICE: 02/28/2020 SUBJECTIVE: The patient remains in the critical care unit. He is postop day 1, status post exploratory laparotomy, segmental small-bowel resection, primary anastomosis for acute small-bowel obstruction with intestinal strangulation. The patient remains on vasopressor and inotropic support. He was able to be removed from the ventilator today. He has subsequently remained stable. He maintains adequate urinary output, and attempts have been made to wean him from his vasopressors. The patient since my visit has transitioned to atrial fibrillation with a rapid ventricular response with a heart rate in the 150s to 160s and at which time, amiodarone was started. His systolic blood pressures maintain in the 90s with a MAP above 60. PHYSICAL EXAMINATION: VITAL SIGNS: Again, systolic blood pressures in the 90s, MAP greater than 60, heart rate fluctuates between 100 and 150, respiratory rate is 24, and oxygen saturation is 100% on 4 L via nasal cannula. GENERAL: The patient is resting comfortably in bed. He was asleep when I originally started examining him. He did wake up and follow my commands as far as taking a deep breath and moving his extremities. RESPIRATORY: Respirations had occasional rhonchi with moderate inspiratory and expiratory effort. HEART: Tachy. ABDOMEN: Soft with minimal tenderness. His midline incision dressing is clean, dry, and intact. EXTREMITIES: Neurovascularly intact x4. RADIOGRAPHIC FINDINGS: Venogram of bilateral lower extremity shows no sonographic evidence of lower extremity DVT. ASSESSMENT AND PLAN: 1. Postop day 1, status post exploratory laparotomy, segmental small-bowel resection with primary anastomosis. 2. Septic shock, resolving. 3. Resolved acute lactic acidosis. 4. Resolving acute kidney injury, superimposing chronic kidney disease. 5. Acute respiratory failure, improving. 6. Atrial fibrillation with rapid ventricular response. Plan will be to begin amiodarone drip. We have evaluated for DVT, in which the sonogram was unremarkable. The patient will also be started on heparin for chemical VTE prophylaxis tonight. BiPap tonight. We will repeat his labs in the morning and continue to closely monitor the patient in the critical care unit. Job ID: [id number] [facility]
[2020-02-28 05:09] LABS: Anion Gap 12 mmol/L (10-20); BUN (Urea Nitrogen) 46 mg/dL (8.4-25.7); Calc. Creatinine Clearance 52 mL/min (70-130); Calcium 8.9 mg/dL (7.8-10.44); Carbon Dioxide 27 mmol/L (23-31); Chloride 109 mmol/L (98-107); Estimated GFR-MDRD 73; Glucose 166 mg/dL (83-110); Magnesium 2.4 mg/dL (1.6-2.6); Phosphorus 2.3 mg/dL (2.3-4.7); Potassium 4.3 mmol/L (3.5-5.1); Sodium 144 mmol/L (136-145)
[2020-02-28 05:31] LABS: Band 24 % (5-11); Lymphocytes 5 % (21-51); MDiff Complete? YES; Mean Corpuscular HGB CONC 30.9 g/dL (32.0-36.0); Mean Corpuscular Hemoglobin 29.2 pg (27.0-31.0); Mean Corpuscular Volume 94.4 fL (78.0-98.0); Mean Platelet Volume 12.8 fL (7.4-10.4); Monocytes 12 % (0-10); Neutrophil 59 % (42-75); Platelet Count 101 thou/uL (130-400); Platelet Morphology Comment Appears Decreased; RBC Distribution Width 12.6 % (11.5-14.5); RBC Morphology Normal; White Blood Cell (WBC) Count 6.7 thou/uL (4.8-10.8)
[2020-02-28] MEDS: Acetaminophen 500 MG TAB PO SCH (05:52)
[2020-02-28] MEDS: MEROPENEM 1 GM/50 ML 1 GM in Premix Bag 1 BAG IVPB SCH ×3 (05:52→22:45)
--- NOTE | 2020-02-28 05:59 | PDOC.FM ---
- Subjective Subjective: Pt wore BiPAP overnight. Now on NC 4L. Asks for water this morning. Reports pain on palpation of abdomen. Otherwise, not having pain. Rhythm of a-fib overnight. - Objective MAR Reviewed: Yes Vital Signs & Weight: Vital Signs (12 hours) Temp Pulse Resp Pulse Ox 02/28/20 04:00 97.8 F 02/28/20 02:50 71 22 H 100 02/28/20 00:47 117 H 22 H 100 02/28/20 00:00 98 F 02/27/20 22:57 143 H 23 H 100 02/27/20 21:35 124 H 25 H 100 02/27/20 21:00 98.1 F 02/27/20 20:00 100 Weight Admit Weight 73.482 kg Weight 76 kg Most Recent Monitor Data Heart Rate from ECG 72 NIBP 92/66 NIBP BP-Mean 74 Respiration from ECG 24 SpO2 100 I&O: 02/26/20 02/27/20 02/28/20 06:59 06:59 06:59 Intake Total 1250 2915.4 1867 Output Total 2045 1855 Balance 1250 870.4 12 Result Diagrams: 02/28/20 04:15 02/28/20 04:15 Phys Exam - Physical Examination Constitutional: NAD Respiratory: no wheezing mild rhonchi b/l Cardiovascular: no significant murmur a-fib, occasional PVC. Rate at 60 bpm Gastrointestinal: soft, no distention hypoactive BS, Mild TTP diffusely SHARDA drain in place, serosanguinous fluid Musculoskeletal: no edema, pulses present Psychiatric: normal affect Dx/Plan (1) Small bowel obstruction Code(s): K56.609 - UNSP INTESTNL OBST, UNSP TO PARTIAL VERSUS COMPLETE OBST Status: Acute (2) LENIN (acute kidney injury) Code(s): N17.9 - ACUTE KIDNEY FAILURE, UNSPECIFIED Status: Acute (3) Dyslipidemia Code(s): E78.5 - HYPERLIPIDEMIA, UNSPECIFIED Status: Chronic (4) H/O prostate cancer Code(s): Z85.46 - PERSONAL HISTORY OF MALIGNANT NEOPLASM OF PROSTATE Status: Chronic (5) HTN (hypertension) Code(s): I10 - ESSENTIAL (PRIMARY) HYPERTENSION Status: Chronic Qualifiers: Hypertension type: essential hypertension Qualified Code(s): I10 - Essential (primary) hypertension - Plan Plan: 84 yo M admitted for: Small Bowel Obstruction 2/2 internal hernia/adhesive band POD #2 s/p ex lap, small bowel resection and primary anastamosis - General surgery consulted by ER. Appreciate recs. - strict NPO - strict I/Os - Extubated yesterday afternoon. Doing well. - procal 27.1. Meropenem. Blood cx: NGTD. Urine cx: proteus mirabilis, resistant to nitrofurantoin. - monitor drain output. Decreasing. 30 mL down from 150 mL. - monitor NG output. 550 mL out over 24 hrs. - urine output 25-75 mL/hour - ICS ordered. Hypotension, hypovolemia Acute septic shock, resolved - levophed at 5, vasopressin at 0.02. - central line in place LENIN on CKD, improved - continue fluids. Monitor. New a-fib w/ RVR - on amiodarone per surgery - heparin prophylactic dose started. - may consider Cardiology consult. HFrEF w/ AICD - AICD in place - repeat ECHO 25-30% EF, grade 2/3 diastolic dysfunction, RVP 40 mm Hg. - BNP 2003 - Restarted entresto overnight. - hold coreg, lasix, aspirin - closely monitor fluid status Prediabetes - monitor HLD - not on statin. Monitor. Code: FULL Lines: R subclavian central line, Azevedo, PIV, Arterial line, SHARDA drain, NG tube Pressors: levophed, vasopressin Diet: NPO, strict. May have water sponges to wet mouth. VTE ppx: heparin. GI ppx: protonix Fluids: LR at 75 mL/hr Dispo: admitted to ICU. Addendum - Attending - Attending Attestation Date/Time: 02/28/20 1303 I personally evaluated the patient and discussed the management with Dr. Kirk. I agree with the History, Examination, Assessment and Plan documented above with any addition or exceptions noted below. Patient overall stable. Now on Amiodarone for Afib, which is negative inotrope while we are trying to work on his BP. Consider cardiology consultation. Needs diuresis. Continue antibiotics and general surgery recs.
[2020-02-28] MEDS: Amiodarone 450 MG in Dextrose 5% in Water 250 ML IVPB SCH (06:46)
[2020-02-28] MEDS ORDERED: Furosemide 40 MG/4 ML VIAL SLOW IVP SCH ×2 (08:00→20:00)
[2020-02-28] MEDS: Pantoprazole 40 MG VIAL IVP SCH (08:26)
[2020-02-28] MEDS: Heparin 5,000 UNITS/ML VIAL SC SCH ×3 (08:31→20:36)
[2020-02-28] MEDS ORDERED: Sacubitril 49 MG/Valsartan 51 MG TABLET PO SCH (09:00)
[2020-02-28] MEDS ORDERED: Carvedilol 3.125 MG TAB PO SCH (09:00)
--- NOTE | 2020-02-28 10:43 | PRG ---
DATE OF SERVICE: 02/28/2020 SUBJECTIVE: Mr. Silva is an 84-year-old man who is postoperative day #2, status post exploratory laparotomy, segmental small bowel resection, and primary anastomosis. The patient is awake and alert. He required BiPAP last night. This morning, he is on nasal cannula oxygen. He moves all extremities and follows commands. He is on norepinephrine at de-escalating dose of 5 mcg/minute and vasopressin at 0.02 units/minute. Urinary output is adequate for the patient's age, although the last 2 hours, has recorded drop in the urinary output to 25 mL/h. The patient went into atrial fibrillation with rapid ventricular response last night, requiring amiodarone by continuous infusion. Currently, he is in sinus rhythm. OBJECTIVE: VITAL SIGNS: Include blood pressure 94/71, pulse is 68, respiratory rate is 22, maximum temperature in last 24 hours is 99.1 degrees Fahrenheit, current temperature is 97.1 degrees Fahrenheit, and oxygen saturation 100% on 4 L by nasal cannula oxygen. HEENT: He has slight bilateral scleral edema present. NECK: He has no jugular venous distention noted. He has poor cough effort. HEART: Reveals irregular rate. LUNGS: Reveal bibasilar rhonchi. Breathing regular and nonlabored. ABDOMEN: Soft and nondistended. SKIN: Incision is intact, clean, dry. He has bowel sounds in all 4 quadrants. Bert-Mckeon drain has returned 50 mL of serous fluid over the last 24 hours. NEUROLOGIC: Reveals no focal deficits present. LABORATORY FINDINGS: Today include a CBC with 6700 white blood cells, hemoglobin and hematocrit 14.0 and 45.3 respectively, the platelet count is 101,000. Metabolic profile; sodium 144, potassium 4.3, chloride is 109, bicarb is 27, BUN is 46, creatinine is 1.15, which is an improvement from 1.44 yesterday and 1.56 day before. Glucose is 166, magnesium 2.4, and phosphorus is 2.3. Serum BNP is 2004.3. IMPRESSIONS: 1. Postoperative day #2, status post exploratory laparotomy, segmental small bowel resection, and primary anastomosis. 2. Resolved acute small-bowel obstruction secondary to strangulated small bowel, secondary to an internal hernia. 3. Acute congestive heart failure exacerbation. 4. Acute atrial fibrillation with rapid ventricular response, likely secondary to acute congestive heart failure exacerbation. 5. Acute hypophosphatemia. 6. Resolved acute kidney injury. PLAN: 1. We will decrease total fluid intake. 2. We will resume prehospitalization heart failure medications, though the lower dose as blood pressure tolerates. 3. We will initiate diuretics. 4. Increase activity per Physical and Occupational Therapy. We will also start trophic enteral nutritional supplementation until return of bowel function. 5. Above findings and plan discussed with the patient who indicates understanding of information given. Total critical care time : 35 minutes Job ID: [id number] MTDD
[2020-02-28] MEDS ORDERED: Acetaminophen 500 MG TAB PER TUBE SCH (12:00)
[2020-02-28] MEDS ORDERED: Acetaminophen 650 MG/20.3 ML UDCUP PER TUBE SCH (14:15)
[2020-02-28] MEDS: Acetaminophen 650 MG/20.3 ML UDCUP PER TUBE SCH ×2 (18:40→23:33)
[2020-02-28] MEDS: Carvedilol 3.125 MG TAB PER TUBE SCH (20:36)
[2020-02-28] MEDS: Sacubitril 49 MG/Valsartan 51 MG TABLET PER TUBE SCH (20:37)
[2020-02-29] MEDS: Norepinephrine 8 MG/0.9% NS 250 ML IVPB SCH ×2 (02:39→04:33)
--- NOTE | 2020-02-29 03:23 | PRG ---
DATE OF SERVICE: 02/29/2020 SUBJECTIVE: The patient is currently on the critical care unit. He is postop day 2 status post exploratory laparotomy, segmental small bowel resection, and primary anastomosis. The patient had acute congestive heart failure exacerbation and last night was in acute atrial fibrillation with rapid ventricular response. He was started on amiodarone, converted to a normal sinus rhythm and today was able to be discontinued from that and he is currently rate controlled and in sinus rhythm. The patient is intermittently required BiPAP. At the time of my visit he was on nasal cannula with oxygen saturation in 90s. The patient underwent diuresis today with 2 Lasix doses. PHYSICAL EXAMINATION: VITAL SIGNS: Stable. Systolic blood pressure maintained above 90, heart rate is 60-70. The patient is afebrile. GENERAL: The patient is resting comfortably in bed. He is sleeping, but did open his eyes to loud verbal stimuli and did take breaths for me to follow commands. LUNGS: Scant rhonchi bilaterally. HEART: Regular rate and rhythm. ABDOMEN: Soft, minimally distended. Midline incision is clean, dry, and intact. His bowel sounds are present. ASSESSMENT AND PLAN: 1. Status post exploratory laparotomy, segmental small bowel resection and primary anastomosis, postop day 2. 2. Resolved acute small-bowel obstruction secondary to strangulated small bowel, secondary to internal hernia. 3. Acute congestive heart failure exacerbation. 4. Atrial fibrillation with rapid ventricular response, likely secondary to acute congestive heart failure, currently in sinus rhythm. 5. Resolved acute kidney injury. Plan will be to continue supportive care. He has been started on trickle feeds. We will continue to monitor. He does still remain on Levophed and we will continue to attempt to wean from his pressors. Job ID: [id number]
[2020-02-29 04:35] LABS: #Basophils 0.1 thou/uL (0.0-0.2); #Monocytes 0.5 thou/uL (0.11-0.59); #Neutrophils 9.1 thou/uL (1.40-6.50); %Basophils 0.5 % (0.0-1.0); %Eosinophils 0.2 % (0.0-10.0); %Lymphocytes 9.1 % (21.0-51.0); %Neutrophils 85.3 % (42.0-75.0); Hemoglobin 15.7 g/dL (14.0-18.0); Mean Corpuscular HGB CONC 31.4 g/dL (32.0-36.0); Mean Corpuscular Hemoglobin 29.8 pg (27.0-31.0); Mean Corpuscular Volume 94.9 fL (78.0-98.0); Mean Platelet Volume 11.7 fL (7.4-10.4); Platelet Count 114 thou/uL (130-400); RBC Distribution Width 12.7 % (11.5-14.5); Red Blood Cell (RBC) Count 5.25 mill/uL (4.70-6.10); White Blood Cell (WBC) Count 10.6 thou/uL (4.8-10.8)
[2020-02-29 04:56] LABS: Anion Gap 12 mmol/L (10-20); BUN (Urea Nitrogen) 46 mg/dL (8.4-25.7); Calc. Creatinine Clearance 48 mL/min (70-130); Calcium 8.6 mg/dL (7.8-10.44); Carbon Dioxide 33 mmol/L (23-31); Chloride 109 mmol/L (98-107); Estimated GFR-MDRD 67; Glucose 160 mg/dL (83-110); Magnesium 2.2 mg/dL (1.6-2.6); Phosphorus 1.7 mg/dL (2.3-4.7); Potassium 3.7 mmol/L (3.5-5.1); Sodium 150 mmol/L (136-145)
[2020-02-29] MEDS ORDERED: Potassium Phosphate 30 MMOL in Sodium Chloride 0.9% 250 ML 250 ML IVPB SCH (05:30)
[2020-02-29] MEDS: Acetaminophen 650 MG/20.3 ML UDCUP PER TUBE SCH ×4 (05:49→23:05)
[2020-02-29] MEDS: MEROPENEM 1 GM/50 ML 1 GM in Premix Bag 1 BAG IVPB SCH ×3 (05:50→20:56)
--- NOTE | 2020-02-29 06:29 | PDOC.FM ---
- Subjective Subjective: Sleeping comfortably this AM. On 2L NC, satting 100%. Refused BiPAP last night and did not desat. Diuresed yesterday w/ lasix. - Objective MAR Reviewed: Yes Vital Signs & Weight: Vital Signs (12 hours) Temp Pulse Pulse Ox 02/29/20 02:00 100 02/29/20 00:00 97.2 F L 02/28/20 23:37 98 02/28/20 22:00 58 L 100 02/28/20 21:30 96 02/28/20 20:00 97.8 F 99 Weight Admit Weight 73.482 kg Weight 77.6 kg Most Recent Monitor Data Heart Rate from ECG 62 NIBP 87/54 NIBP BP-Mean 65 Respiration from ECG 10 SpO2 100 I&O: 02/27/20 02/28/20 02/29/20 06:59 06:59 06:59 Intake Total 2915.4 3081.3 897 Output Total 20440 2230 Balance 870.4 1041.3 -1333 Result Diagrams: 02/29/20 04:12 02/29/20 04:12 Phys Exam - Physical Examination Constitutional: NAD Respiratory: no wheezing, clear to auscultation bilateral Cardiovascular: RRR (NSR on telemetry) Gastrointestinal: soft, no distention, positive bowel sounds (normoactive, improved) Musculoskeletal: no edema (SCDs on.) Dx/Plan (1) Small bowel obstruction Code(s): K56.609 - UNSP INTESTNL OBST, UNSP TO PARTIAL VERSUS COMPLETE OBST Status: Acute (2) LENIN (acute kidney injury) Code(s): N17.9 - ACUTE KIDNEY FAILURE, UNSPECIFIED Status: Acute (3) Dyslipidemia Code(s): E78.5 - HYPERLIPIDEMIA, UNSPECIFIED Status: Chronic (4) H/O prostate cancer Code(s): Z85.46 - PERSONAL HISTORY OF MALIGNANT NEOPLASM OF PROSTATE Status: Chronic (5) HTN (hypertension) Code(s): I10 - ESSENTIAL (PRIMARY) HYPERTENSION Status: Chronic Qualifiers: Hypertension type: essential hypertension Qualified Code(s): I10 - Essential (primary) hypertension - Plan Plan: 84 yo M admitted for: Small Bowel Obstruction 2/2 internal hernia/adhesive band POD #3 s/p ex lap, small bowel resection and primary anastamosis - General surgery consulted by ER. Raymundo recs. - strict NPO, trickle feeds started. BS active. - strict I/Os - Meropenem. Blood cx: NGTD. Urine cx: proteus mirabilis, resistant to nitrofurantoin. - monitor drain output. - urine output: 2.1 L in past 24 hours. Overall negative fluid balance in past 24 hours. - ICS and acapella ordered. Respiratory status improved, recommend d/c BiPAP. Likely does not need nasal cannula as he is satting 100% on 2L. Wean O2 to sat > 92%. Hypotension, hypovolemia Acute septic shock, resolved - levophed at 4. Vasopression discontinued. - central line in place LENIN on CKD, improved - continue fluids. Monitor. New a-fib w/ RVR, resolved. - resolved s/p amiodarone gtt for 24 hr. Likely related to fluid overload in setting of heart failure. HFrEF w/ AICD - AICD in place - repeat ECHO 25-30% EF, grade 2/3 diastolic dysfunction, RVP 40 mm Hg. - BNP 2003 - Entresto BID. - hold coreg, lasix, aspirin - closely monitor fluid status. Appears dry today, sodium of 150 after diuresis Prediabetes - monitor HLD - not on statin. Monitor. Code: FULL Lines: R subclavian central line, Azevedo, PIV, Arterial line, SHARDA drain, NG tube Pressors: levophed Diet: Trickle feeds VTE ppx: heparin. GI ppx: protonix Fluids: LR titrated to total fluid intake of 100 mL/hr Dispo: admitted to ICU. Addendum - Attending - Attending Attestation Date/Time: 02/29/20 1043 I personally evaluated the patient and discussed the management with Dr. Kirk. I agree with the History, Examination, Assessment and Plan documented above with any addition or exceptions noted below. Patient overall stable. HR improved, now NSR. Gen Surg managing his post op care. Continues on pressors, and considering what is being documented in CVP measures could benefit from some fluid hydration. He is also by definition dehydrated and needs some increased free water either in his IV or with his tube feeds. Trend.
[2020-02-29] MEDS: Heparin 5,000 UNITS/ML VIAL SC SCH ×3 (09:27→20:55)
[2020-02-29] MEDS: Carvedilol 3.125 MG TAB PER TUBE SCH ×2 (09:28→20:06)
[2020-02-29] MEDS: Pantoprazole 40 MG VIAL IVP SCH (09:28)
[2020-02-29] MEDS: Lactated Ringer's 1,000 ML IV SCH (09:28)
[2020-02-29] MEDS: Sacubitril 49 MG/Valsartan 51 MG TABLET PER TUBE SCH ×2 (09:28→20:56)
[2020-02-29 11:00] LABS: Anion Gap 14 mmol/L (10-20); BUN (Urea Nitrogen) 43 mg/dL (8.4-25.7); Calc. Creatinine Clearance 52 mL/min (70-130); Calcium 8.7 mg/dL (7.8-10.44); Carbon Dioxide 32 mmol/L (23-31); Chloride 110 mmol/L (98-107); Estimated GFR-MDRD 73; Glucose 138 mg/dL (83-110); Potassium 4.5 mmol/L (3.5-5.1); Sodium 151 mmol/L (136-145)
[2020-02-29] MEDS: Dextrose 5% in Water 1,000 ML IV SCH (12:00)
[2020-02-29] MEDS ORDERED: [UNRECOGNIZED DRUG - REMARK] IVPB PRN (12:57)
[2020-02-29] MEDS ORDERED: Norepinephrine 8 MG in Dextrose 5% in Water 242 ML IVPB SCH (13:00)
[2020-02-29] MEDS: Metoclopramide HCl 10 MG/2 ML VIAL IVP SCH ×2 (13:49→20:56)
[2020-02-29] MEDS ORDERED: Albumin 5% 250 ML ONE (18:20)
--- NOTE | 2020-02-29 19:49 | PRG ---
DATE OF SERVICE: 02/29/2020 SUBJECTIVE: Mr. Silva is an 84-year-old male, status post exploratory laparotomy, segmental small bowel resection, and primary anastomosis; acute small bowel obstruction, resolved; acute on chronic CHF; acute atrial fibrillation, resolved; acute kidney injury, resolved. Last night, the patient had no overnight event, pressure in 85 to 90, CVb 0-3 in which the patient got 12.5 g of albumin 5%. Urine is adequate, 50 an hour. The patient developed no fever or shortness of breath. O2 saturation is 95% on cannula 2 L. The patient experienced high residual volume in which he got only 160 tube feeding. The patient not yet had bowel, and he stated that his pain is well controlled. OBJECTIVE: GENERAL: Currently, the patient is sitting on a neuro chair comfortable with no acute respiratory distress. VITAL SIGNS: Temperature 98, heart rate 74, respiratory rate 16, blood pressure 96/63, O2 saturation 100% on 2 L. LUNGS: Clear bilaterally. HEART: Regular rate and rhythm. ABDOMEN: Soft. Midline incision wound clean, dry, and intact. EXTREMITIES: Neurovascularly intact x4. NEUROLOGIC: No focal neurologic deficits. LABORATORY DATA: Showed white count 10.6, hemoglobin 15.7. Sodium 150, potassium 3.7, creatinine is 1.24, phosphorus 1.7, and magnesium 2.2. ASSESSMENT: 1. Status post exploratory laparotomy, small bowel resection with primary anastomosis. 2. Acute on chronic congestive heart failure, stable. 3. Atrial fibrillation with rapid ventricular response, resolved. 4. Acute kidney injury, resolved. PLAN: Continue supportive care. Continue pain control. We will switch fluid IV to D5W. Continue tube feeding today. Await for bowel to fully return. Encourage physical therapy and occupational therapy. Slowly wean the vasopressor. The patient was consulted with Dr. Cole over the phone earlier today. Job ID: [id number]
[2020-02-29] MEDS ORDERED: Lactated Ringer's 500 ML IV SCH (21:00)
--- NOTE | 2020-03-01 01:09 | PRG ---
DATE OF SERVICE: 03/01/2020 The patient remains in the critical care unit. He is postop day 3 status post exploratory laparotomy, segmental small bowel resection and primary anastomosis. The patient is being treated for acute congestive heart failure exacerbation and was recently in atrial fibrillation with rapid ventricular response. He is still remaining on Levophed, but he has been off his vasopressin and amiodarone for greater than 24 hours. He maintains his MAP above 60 and is having adequate urinary output. He was diuresed x2 yesterday. Today, there was concern that he may have been a little dry and was given albumin and lactated Ringer's as his CVP was between 0 and 3. PHYSICAL EXAMINATION: VITAL SIGNS: Stable. MAP is 16 and occasionally up to 70. Oxygen saturations maintained at 100% on nasal cannula. GENERAL: The patient is resting comfortably in bed. He is again sleeping, but did open his eyes and follow my simple commands and he was not in any pain at this time. The patient is currently tolerating trickle feeds with his NG tube. LUNGS: Have rhonchi bilaterally, still minimal. HEART: Regular rate and rhythm. ABDOMEN: Soft, slightly distended, but appears to be the same as it was for me last night. His midline incision is clean, dry, and intact. Bowel sounds are present. ASSESSMENT/PLAN: 1. Status post exploratory laparotomy, segmental small bowel resection and primary anastomosis, postoperative day 3. 2. Resolved acute small-bowel obstruction secondary to strangulated small bowel, secondary to internal hernia. 3. Acute congestive heart failure exacerbation, stable. 4. Atrial fibrillation with rapid ventricular response, likely secondary to acute congestive heart failure, currently in sinus rhythm. 5. Resolved acute kidney injury. PLAN: Plan will be to continue supportive care. Monitor his residuals on his tube feeds and continue to work on weaning him from his pressors. Job ID: [id number]
[2020-03-01] MEDS: Metoclopramide HCl 10 MG/2 ML VIAL IVP SCH ×3 (04:08→21:01)
[2020-03-01 04:30] LABS: Anion Gap 16 mmol/L (10-20); BUN (Urea Nitrogen) 32 mg/dL (8.4-25.7); Calc. Creatinine Clearance 55 mL/min (70-130); Carbon Dioxide 24 mmol/L (23-31); Chloride 112 mmol/L (98-107); Estimated GFR-MDRD 77; Glucose 111 mg/dL (83-110); Magnesium 2.3 mg/dL (1.6-2.6); Phosphorus 2.3 mg/dL (2.3-4.7); Potassium 4.3 mmol/L (3.5-5.1); Sodium 148 mmol/L (136-145)
[2020-03-01 04:51] LABS: Band 1 % (5-11); Hemoglobin 18.1 g/dL (14.0-18.0); Lymphocytes 12 % (21-51); MDiff Complete? YES; Mean Corpuscular HGB CONC 31.8 g/dL (32.0-36.0); Mean Corpuscular Hemoglobin 30.2 pg (27.0-31.0); Mean Corpuscular Volume 95.1 fL (78.0-98.0); Mean Platelet Volume 11.8 fL (7.4-10.4); Monocytes 12 % (0-10); Neutrophil 75 % (42-75); Platelet Count 96 thou/uL (130-400); Platelet Morphology Comment Appears Decreased; RBC Distribution Width 12.7 % (11.5-14.5); RBC Morphology Normal; Red Blood Cell (RBC) Count 5.98 mill/uL (4.70-6.10); White Blood Cell (WBC) Count 8.1 thou/uL (4.8-10.8)
[2020-03-01] MEDS: MEROPENEM 1 GM/50 ML 1 GM in Premix Bag 1 BAG IVPB SCH ×3 (05:06→21:02)
[2020-03-01] MEDS: Acetaminophen 650 MG/20.3 ML UDCUP PER TUBE SCH ×4 (05:06→23:56)
--- NOTE | 2020-03-01 05:59 | PDOC.FM ---
- Subjective Subjective: Pt continuing to sit up to chair w/ PT. He feels thirsty. Nurse currently trialing levophed off. Pt received albumin and 500mL of LR last night for low BP. Per nursing pt is not using ICS very well, not limited due to pain, but limited due to coordination of movement. - Objective MAR Reviewed: Yes Vital Signs & Weight: Vital Signs (12 hours) Temp Pulse Resp Pulse Ox 03/01/20 03:00 97.6 F 02/29/20 23:20 61 12 100 02/29/20 23:00 98.1 F 02/29/20 19:48 97 02/29/20 19:00 97.7 F 02/29/20 18:27 66 16 100 Weight Admit Weight 73.482 kg Weight 77.6 kg Most Recent Monitor Data Heart Rate from ECG 66 NIBP 106/64 NIBP BP-Mean 78 Respiration from ECG 12 SpO2 100 I&O: 02/28/20 02/29/20 03/01/20 06:59 06:59 06:59 Intake Total 3081.3 2039.4 1530.9 Output Total 0 2485 1335 Balance 1041.3 -445.6 195.9 Result Diagrams: 03/01/20 03:37 03/01/20 03:37 Phys Exam - Physical Examination Constitutional: NAD Respiratory: no wheezing, clear to auscultation bilateral pt has weak cough Cardiovascular: RRR Gastrointestinal: soft, no distention, positive bowel sounds minimally tender Musculoskeletal: no edema Psychiatric: normal affect Deviation from normal: midline incision w/ jael is c/d/intact. Dx/Plan (1) Small bowel obstruction Code(s): K56.609 - UNSP INTESTNL OBST, UNSP TO PARTIAL VERSUS COMPLETE OBST Status: Acute (2) LENIN (acute kidney injury) Code(s): N17.9 - ACUTE KIDNEY FAILURE, UNSPECIFIED Status: Acute (3) Dyslipidemia Code(s): E78.5 - HYPERLIPIDEMIA, UNSPECIFIED Status: Chronic (4) H/O prostate cancer Code(s): Z85.46 - PERSONAL HISTORY OF MALIGNANT NEOPLASM OF PROSTATE Status: Chronic (5) HTN (hypertension) Code(s): I10 - ESSENTIAL (PRIMARY) HYPERTENSION Status: Chronic Qualifiers: Hypertension type: essential hypertension Qualified Code(s): I10 - Essential (primary) hypertension - Plan Plan: 84 yo M admitted for: Small Bowel Obstruction 2/2 internal hernia/adhesive band POD #4 s/p ex lap, small bowel resection and primary anastamosis - General surgery consulted by ER. Raymundo arellano. - strict NPO, trickle feeds started. BS active. Await return of bowel function. - strict I/Os - Meropenem. Blood cx: NGTD. Urine cx: proteus mirabilis, resistant to nitrofurantoin. - monitor drain output. - urine output adequate. - ICS and acapella ordered. Likely does not need nasal cannula as he is satting 100% on 2L. Wean O2 to sat > 92%. Hypotension, hypovolemia Dehydration Acute septic shock, resolved - levophed off currently. Vasopression discontinued. - pt with high sodium yesterday and today. He is dehydrated. Today he has 2.2 L free water deficit. Recommend replenishing this with D5W IV, since CVP is still at 1 and pt has been having trouble weaning off levophed. Likely could stop levophed and treat his BP with IV fluid. - central line in place LENIN on CKD, improved - continue fluids. Monitor. New a-fib w/ RVR, resolved. - resolved s/p amiodarone gtt for 24 hr. Likely related to fluid overload in setting of heart failure. HFrEF w/ AICD - AICD in place - repeat ECHO 25-30% EF, grade 2/3 diastolic dysfunction, RVP 40 mm Hg. - BNP 2003-> 540. - Entresto BID. - hold coreg, lasix, aspirin - closely monitor fluid status in setting of dehydration Prediabetes - monitor HLD - not on statin. Monitor. Code: FULL Lines: R subclavian central line, Azevedo, PIV, Arterial line, SHARDA drain, NG tube Pressors: none currently. Diet: Trickle feeds VTE ppx: heparin. GI ppx: protonix Fluids: D5W KVO. Dispo: admitted to ICU. Addendum - Attending - Attending Attestation Date/Time: 03/01/20 1024 I personally evaluated the patient and discussed the management with Dr. Kirk. I agree with the History, Examination, Assessment and Plan documented above with any addition or exceptions noted below. Patient here with SBO s/p ex-lap with resection. He is primarily being managed by GenSurg service. Has severe CHF and we have had to be careful about volume status. Had Afib RVR that resolved with Amiodarone. He has increased Hct and is still hypernatremic suggesting a little volume down with free water deficit. Would recommend repleting. He is otherwise doing well and will continue with standard post op regimen per GenSurg.
[2020-03-01] MEDS: Sacubitril 49 MG/Valsartan 51 MG TABLET PER TUBE SCH ×2 (09:35→21:00)
[2020-03-01] MEDS: Pantoprazole 40 MG VIAL IVP SCH (09:37)
[2020-03-01] MEDS: Heparin 5,000 UNITS/ML VIAL SC SCH ×3 (09:37→21:00)
[2020-03-01] MEDS: Carvedilol 3.125 MG TAB PER TUBE SCH ×3 (09:37→21:02)
--- NOTE | 2020-03-02 00:46 | PRG ---
DATE OF SERVICE: 03/02/2020 SUBJECTIVE: The patient is currently in the intermediate care unit. He is postop day 4 status post exploratory laparotomy, segmental small bowel resection, and primary anastomosis. The patient had extended stay in the critical care unit due to acute congestive heart failure exacerbation and atrial fibrillation with rapid ventricular response. He is currently off all of his vasopressors and chronotropic support. He has been tolerating his tube feeds at a trickle rate and they were increased slightly today. He reportedly had one small bowel movement and he was also able to work with Physical Therapy today. PHYSICAL EXAMINATION: VITAL SIGNS: Stable. The patient's systolic blood pressure has been above 100 throughout the day, heart rate in the 70s, oxygen saturation is maintaining in the 90s, and the patient is afebrile. GENERAL: The patient is resting comfortably in bed. He is awake tonight and this is probably the best I have seen him since his admission. He appears more alert and conversant. He denies pain at this time. LUNGS: Clear to auscultation with good inspiratory and expiratory effort. HEART: Regular rate and rhythm. ABDOMEN: Soft and nontender. His midline incision is clean, dry, and intact. Bowel sounds are present. ASSESSMENT: 1. Status post exploratory laparotomy, segmental small bowel resection, and primary anastomosis, postop day 4. 2. Resolved acute small bowel obstruction secondary to strangulated small bowel, secondary to internal hernia. 3. Acute congestive heart failure exacerbation, improved, stable. 4. Atrial fibrillation with rapid ventricular response, likely secondary to acute congestive heart failure, resolved, currently in sinus rhythm. 5. Resolved acute kidney injury. 6. Hypernatremia. PLAN: Plan will be to continue increasing his free water. Monitor his residuals with his tube feeds. Continue to encourage physical and occupational therapy, and we will repeat his labs in the morning. Job ID: [id number]
[2020-03-02] MEDS: Metoclopramide HCl 10 MG/2 ML VIAL IVP SCH ×3 (04:10→21:07)
[2020-03-02 04:29] LABS: Band 2 % (5-11); Hemoglobin 16.8 g/dL (14.0-18.0); Lymphocytes 16 % (21-51); MDiff Complete? YES; Mean Corpuscular HGB CONC 30.8 g/dL (32.0-36.0); Mean Corpuscular Hemoglobin 29.2 pg (27.0-31.0); Mean Corpuscular Volume 94.8 fL (78.0-98.0); Monocytes 14 % (0-10); Neutrophil 68 % (42-75); Platelet Count 124 thou/uL (130-400); Platelet Morphology Comment Appears Decreased; RBC Distribution Width 12.7 % (11.5-14.5); Red Blood Cell (RBC) Count 5.76 mill/uL (4.70-6.10); White Blood Cell (WBC) Count 8.9 thou/uL (4.8-10.8)
[2020-03-02 04:37] LABS: Anion Gap 8 mmol/L (10-20); BUN (Urea Nitrogen) 25 mg/dL (8.4-25.7); Calc. Creatinine Clearance 70 mL/min (70-130); Calcium 8.4 mg/dL (7.8-10.44); Carbon Dioxide 33 mmol/L (23-31); Chloride 110 mmol/L (98-107); Estimated GFR-MDRD Greater than 90; Glucose 148 mg/dL (83-110); Potassium 3.7 mmol/L (3.5-5.1); Sodium 147 mmol/L (136-145)
[2020-03-02] MEDS: MEROPENEM 1 GM/50 ML 1 GM in Premix Bag 1 BAG IVPB SCH (05:05)
[2020-03-02] MEDS: Dextrose 5% in Water 1,000 ML IV SCH ×2 (05:06→18:30)
[2020-03-02] MEDS ORDERED: Lactated Ringer's 500 ML IV SCH (05:30)
[2020-03-02 05:42] LABS: Magnesium 2.1 mg/dL (1.6-2.6); Phosphorus 1.4 mg/dL (2.3-4.7)
[2020-03-02] MEDS: Acetaminophen 650 MG/20.3 ML UDCUP PER TUBE SCH ×4 (05:44→23:00)
[2020-03-02] MEDS ORDERED: Potassium Phosphate 15 MMOL in Sodium Chloride 0.9% 250 ML 250 ML IVPB SCH ×2 (06:30→12:00)
--- NOTE | 2020-03-02 07:26 | PDOC.FM ---
- Subjective Subjective: Patiet reports feeling well, no pain. A&O x3. Nurse reports 570 cc residual + 900cc. No emesis. Having BM. On tube feeds - Objective MAR Reviewed: Yes Vital Signs & Weight: Vital Signs (12 hours) Temp Pulse Resp Pulse Ox 03/02/20 07:11 96.7 F L 03/02/20 06:01 16 03/02/20 01:04 77 14 99 03/01/20 23:05 97.6 F 03/01/20 20:00 97.3 F L 100 03/01/20 19:38 75 14 99 Weight Admit Weight 73.482 kg Weight 77 kg Most Recent Monitor Data Heart Rate from ECG 85 NIBP 114/76 NIBP BP-Mean 88 Respiration from ECG 23 SpO2 100 I&O: 03/01/20 03/02/20 03/03/20 06:59 06:59 06:59 Intake Total 2085.9 1631 Output Total 1445 1330 30 Balance 640.9 301 -30 Result Diagrams: 03/02/20 04:05 03/02/20 04:05 Phys Exam - Physical Examination Constitutional: NAD HEENT: PERRLA NG tube in place no respiratory distress irregular, no murmur Gastrointestinal: soft, non-tender hypoactive BS Musculoskeletal: no edema Neurological: non-focal, moves all 4 limbs Dx/Plan (1) LENIN (acute kidney injury) Code(s): N17.9 - ACUTE KIDNEY FAILURE, UNSPECIFIED Status: Acute (2) Small bowel obstruction Code(s): K56.609 - UNSP INTESTNL OBST, UNSP TO PARTIAL VERSUS COMPLETE OBST Status: Acute (3) Acute exacerbation of CHF (congestive heart failure) Code(s): I50.9 - HEART FAILURE, UNSPECIFIED Status: Acute Qualifiers: Heart failure type: systolic Qualified Code(s): I50.23 - Acute on chronic systolic (congestive) heart failure (4) Hypernatremia Code(s): E87.0 - HYPEROSMOLALITY AND HYPERNATREMIA Status: Acute (5) Afib Code(s): I48.91 - UNSPECIFIED ATRIAL FIBRILLATION Status: Acute - Plan Plan: 84 yo M admitted for: #Small Bowel Obstruction 2/2 internal hernia/adhesive band POD #5 s/p ex lap, small bowel resection and primary anastamosis - General surgery following. recs apprecaited - strict I/Os - Meropenem. Blood cx: NGTD. Urine cx: proteus mirabilis, resistant to nitrofurantoin. - monitor drain output. - urine output adequate. - ICS and acapella ordered. Likely does not need nasal cannula as he is satting 100% on 2L. Wean O2 to sat > 92%. #Hypotension 2/2 septic shock and volume depletion - BPs stable. Off of levophed and vasopressin since 03/01 - central line in place if needed - Continue gentle fluid hydration #Hypernatremia -Likely 2/2 dehydration, 1.9L deficit -Received 500cc LR bolus this AM, On 20cc/hr of D5@, will inc to 50cc -Closely monitor fluid status since with heart failure #New a-fib w/ RVR, resolved. - resolved s/p amiodarone gtt for 24 hr. Likely related to fluid overload in setting of heart failure. -Continue tele monitoring #LENIN on CKD, resolved - continue fluids. Monitor. #HFrEF w/ AICD - AICD in place - repeat ECHO 25-30% EF, grade 2/3 diastolic dysfunction, RVP 40 mm Hg. - BNP 2003-> 540. - Entresto BID. - hold coreg, lasix, aspirin - closely monitor fluid status in setting of dehydration #Prediabetes - monitor #HLD - not on statin. Monitor. Code: FULL Lines: R subclavian central line, Azevedo, PIV, Arterial line, SHARDA drain, NG tube Pressors: none currently. Diet: Trickle feeds VTE ppx: heparin. GI ppx: protonix Fluids: D5W KVO. Addendum - Attending - Attending Attestation Date/Time: 03/02/20 7329 I personally evaluated the patient and discussed the management with Dr. Hickey I agree with the History, Examination, Assessment and Plan documented above with any addition or exceptions noted below. 84 yo M POD #5 s/p ex lap, small bowel resection and primary anastamosis. Patient with high residuals this AM, small bowel follow through ordered per trauma team. Feels held. Hypernatremia, cont D5W at 50ml/hr, add 1/2 NS at 100ml /hr to achieve maintenance IV fluid replacement. Will monitor fluid status closely. A fib rate controlled. RA [id number]
[2020-03-02] MEDS ORDERED: PHOS-NAK 1 PKT PACK PO SCH (07:30)
--- NOTE | 2020-03-02 07:32 | PRG ---
DATE OF SERVICE: 03/01/2020 DIAGNOSES: 1. Small-bowel obstruction secondary to internal hernia with single band. 2. Status post exploratory laparotomy. 3. Acute kidney injury on chronic kidney disease, resolved. 4. Thrombocytopenia. 5. Prediabetes. 6. Hypertension. 7. History of prostatectomy. 8. Hyperlipidemia. 9. Heart failure with reduced ejection fraction, requiring automatic implantable cardioverter-defibrillator. HISTORY OF PRESENT ILLNESS/HOSPITAL COURSE: Mr. Silva is an 84-year-old male, who was admitted due to abdominal pain and 2-day history of constipation. The patient did not have nausea or vomiting on admission. General Surgery was consulted, and we began medically managing his pain. CT of the abdomen and pelvis showed abnormally dilated small bowel, evidence for small bowel obstruction with some possible mild small bowel wall thickening. A small bowel follow-through failed to show any contrast past the mid abdomen at 4 hours. A repeat KUB the next morning showed the contrast had not moved. An NG tube was then placed by General Surgery, and immediately approximately 4 L of feculent material was drained on suction. The patient then became hypotensive with a systolic blood pressure to the 60s, and he was transferred to the ICU. He was given 2 L bolus of normal saline, and a central line was placed. The patient did require pressors. Due to this acute septic shock, where his procalcitonin was found to be 27.1, Dr. Cole then proceeded to perform an exploratory laparotomy on the patient. Dr. Cole removed 1.5 feet of small bowel. The patient was intubated the evening after the surgery and stayed intubated until the next day. He was quickly weaned from the ventilator and extubated. Since the patient has comorbid and very brittle congestive heart failure, he was diuresed with Lasix and fluid restricted. On the date of this dictation, the patient had a free water deficit of approximately 2 L and hypernatremia with a sodium of 148. General Surgery was maintaining his fluid status as they saw fit. When the patient became septic, blood cultures and urine culture were drawn. Blood culture showed no growth at 48 hours. Urine culture showed growth of Proteus mirabilis sensitive to all antibiotics except for nitrofurantoin. The patient was placed on meropenem for broad coverage of the enteric organisms. This also covered the urinary pathogen. On the day of this dictation, the patient had had trophic trickle feeds going through his NG tube. He was on room air. His midline incision looks clean, dry, and intact. The patient had a Tejinder drain, which was still draining serosanguineous fluid of about 200 to 300 mL per day. The patient also had a Azevedo catheter and was having adequate urinary output. Job ID: [id number]
--- NOTE | 2020-03-02 08:00 | PRG ---
DATE OF SERVICE: 03/01/2020 SUBJECTIVE: Mr. Silva is an 84-year-old male, status post exploratory laparotomy, segmental small bowel resection and primary anastomosis due to acute small-bowel obstruction. The patient also has a history of chronic CHF exacerbation; acute atrial fibrillation, resolved; acute kidney injury, resolved. The patient had no overnight event. Blood pressure has been stable with trending down Levophed. Tolerate tube feeding and has not yet have bowel. OBJECTIVE: GENERAL: Currently, the patient lying in bed comfortable with no acute respiratory distress. VITAL SIGNS: Temperature is 98, heart rate 73, respiratory rate 14, O2 saturation now 100% on 1 L, and blood pressure . LUNGS: Clear bilaterally. HEART: Regular rate and rhythm. ABDOMEN: Soft and nondistended. Midline incision clean, dry, and intact. ASSESSMENT: Status post exploratory laparotomy, small bowel resection with primary anastomosis due to acute small-bowel obstruction, resolved; acute on chronic congestive heart failure, stable; atrial fibrillation with rapid ventricular response, resolved; acute kidney injury, resolved. PLAN: Plan will be continue supportive care. Continue pain control. Encourage working with Physical Therapy and Occupational Therapy and neuro check daily. Anticipate transfer to surgical floor in the next 24 to 48 hours. Job ID: [id number]
[2020-03-02] MEDS: Carvedilol 3.125 MG TAB PER TUBE SCH ×2 (08:29→21:06)
[2020-03-02] MEDS: Sacubitril 49 MG/Valsartan 51 MG TABLET PER TUBE SCH ×2 (08:29→21:06)
[2020-03-02] MEDS ORDERED: Dextrose 5% in Water 1,000 ML IV SCH (09:32)
[2020-03-02] MEDS: Pantoprazole 40 MG VIAL IVP SCH (09:54)
[2020-03-02] MEDS: Heparin 5,000 UNITS/ML VIAL SC SCH ×3 (09:54→21:06)
[2020-03-02] MEDS ORDERED: MD-Gastroview 120 ML BOT ONE (10:09)
--- NOTE | 2020-03-02 10:51 | PRG ---
DATE OF SERVICE: 03/02/2020 SUBJECTIVE: Mr. Silva is an 84-year-old man, who is postoperative day #5, status post exploratory laparotomy, segmental small bowel resection, primary anastomosis for strangulated small bowel secondary to closed-loop small bowel obstruction from adhesions. The patient is awake and alert. He is on no vasopressor or inotropic support. Urinary output has been adequate for the patient's age and weight, although the last 2 hours recorded a urinary output, which is less than 0.5 mL/kg/hour. The patient was intolerant to trophic enteral nutritional supplementation with the residual volume of 900 mL. Otherwise, the patient has been afebrile over the last 72 hours. OBJECTIVE: VITAL SIGNS: This morning include blood pressure 113/69, pulse is 98, respiratory rate is 10, maximum temperature in the last 24 hours is 98.2 degrees Fahrenheit, and oxygen saturation is 100% on room air. NECK: He has no jugular venous distention noted. HEART: Reveals regular rate and rhythm. LUNGS: Clear to auscultation bilaterally. Breathing, regular and unlabored. ABDOMEN: Soft and nondistended. SKIN: Incision is intact, clean, and dry. Bert-Mckeon drain returns scant amount of serous fluid. The patient clearly has no peritoneal signs on examination. NEUROLOGIC: Reveals no focal deficits present. LABORATORY FINDINGS: Today includes a CBC with 8900 white blood cells, hemoglobin and hematocrit 16.8 and 54.5 respectively. Platelet count is 224,000. Metabolic profile; sodium is 147, potassium is 3.7, chloride is 110, bicarb is 33, BUN is 25, creatinine is 0.86, glucose is 148, magnesium is 2.1, and phosphorus is 1.4. IMPRESSION: 1. Postop day #5, status post exploratory laparotomy with segmental small bowel resection. 2. Postoperative ileus. 3. Acute hypokalemia. 4. Acute hypophosphatemia. PLAN: 1. Correct abnormal electrolytes. 2. We will initiate small bowel followthrough and increase activity as the patient tolerates per Physical and Occupational Therapy. 3. Tube feeds will be held pending result of the small bowel followthrough. 4. Continue with free water replacement given this patient's resolving acute hypernatremia. Indicates understanding. Job ID: [id number]
[2020-03-02] MEDS ORDERED: Sodium Chloride 0.45% 1,000 ML IV SCH (11:45)
--- NOTE | 2020-03-02 15:10 | RAD ---
Small bowel follow-through HISTORY: Obstruction. Abdominal pain. COMPARISON: 02/25/2020. FINDINGS: Dilated gas-filled loops of small bowel overlie the abdomen on the sr community manager image. Gas and sto ol overlying the colon and rectum. Skin jael overlie the anterior midline. Radiopaque drain over the right lower quadrant. Water-soluble contrast was instilled through the indwelling nasogastric tube. Contrast refluxes into the esophagus. At 2 hours, dilated proximal duodenum is opacified, with more distal small bowel is not opacified. Gas-filled loops of small bowel are evident throughout the abdomen. After the 2 hour image, nasogastric tube was applied to wall suction, removing contrast from the stom ach. Image at 5 hours shows persistent contrast material within the dilated duodenum and proximal jejunum. IMPRESSION : Given the gas and stool throughout the colon and rectum, severe ileus is favored over complete bowel obstruction.
[2020-03-02 16:07] LABS: Anion Gap 17 mmol/L (10-20); BUN (Urea Nitrogen) 23 mg/dL (8.4-25.7); Calc. Creatinine Clearance 67 mL/min (70-130); Calcium 8.9 mg/dL (7.8-10.44); Carbon Dioxide 22 mmol/L (23-31); Chloride 112 mmol/L (98-107); Estimated GFR-MDRD Greater than 90; Glucose 119 mg/dL (83-110); Potassium 4.4 mmol/L (3.5-5.1); Sodium 147 mmol/L (136-145)
[2020-03-03] MEDS: Metoclopramide HCl 10 MG/2 ML VIAL IVP SCH (04:40)
[2020-03-03] MEDS: Dextrose 5% in Water 1,000 ML IV SCH (04:40)
--- NOTE | 2020-03-03 04:40 | PRG ---
DATE OF SERVICE: SUBJECTIVE: The patient remains on the intermediate care unit. He is postop day #5, status post exploratory laparotomy, segmental small bowel resection, and primary anastomosis. The patient today reportedly had some confusion later in the afternoon, which has since resolved. He underwent small bowel follow-through today. Radiology report as gas and stool throughout the colon and rectum. Severe ileus is favored over complete bowel obstruction. The patient did have his tube feeds held again for high residuals. PHYSICAL EXAMINATION: VITAL SIGNS: Stable. The patient is afebrile. GENERAL: The patient is resting comfortably in bed. He was asleep at the time of my visit, but he did open his eyes with gentle verbal stimulation and stated that he was not having any pain at this time. LUNGS: Clear to auscultation bilaterally. HEART: Regular rate and rhythm, though on the monitor it did appear that he was having intermittent PACs versus recurrence of his atrial fibrillation. He was not tachycardic. ABDOMEN: Soft, nondistended with hypoactive bowel sounds. Incision is clean, dry, and intact. EXTREMITIES: Neurovascularly intact x4. ASSESSMENT AND PLAN: 1. Status post exploratory laparotomy, segmental small bowel resection and primary anastomosis, postoperative day 5. 2. Resolved acute small-bowel obstruction secondary to strangulated small bowel, secondary to an internal hernia. 3. Acute congestive heart failure exacerbation, improved, stable. 4. Atrial fibrillation with rapid ventricular response, likely secondary to congestive heart failure, resolved. 5. Resolved acute kidney injury. 6. Hypernatremia. Plan will be to continue with the free water flushes. Encourage physical and occupational therapy. Repeat labs in the morning and await placement decision. Job ID: [id number]
[2020-03-03 05:25] LABS: Anion Gap 11 mmol/L (10-20); BUN (Urea Nitrogen) 23 mg/dL (8.4-25.7); Calc. Creatinine Clearance 66 mL/min (70-130); Carbon Dioxide 30 mmol/L (23-31); Chloride 108 mmol/L (98-107); Estimated GFR-MDRD Greater than 90; Glucose 128 mg/dL (83-110); Magnesium 2.1 mg/dL (1.6-2.6); Phosphorus 2.4 mg/dL (2.3-4.7); Potassium 3.6 mmol/L (3.5-5.1); Sodium 145 mmol/L (136-145)
[2020-03-03] MEDS: Acetaminophen 650 MG/20.3 ML UDCUP PER TUBE SCH ×2 (06:28→13:16)
--- NOTE | 2020-03-03 07:30 | PDOC.FM ---
- Subjective Subjective: Doing well. No concerns. Had BM, no feeds currently. - Objective Vital Signs & Weight: Vital Signs (12 hours) Temp Pulse Resp BP Pulse Ox 03/03/20 07:23 97.8 F 03/03/20 05:10 80 16 100/59 L 03/03/20 04:04 97.3 F L 03/02/20 23:46 90 16 99 03/02/20 23:30 96.0 F L 03/02/20 20:00 98 Weight Admit Weight 73.482 kg Weight 77.6 kg Most Recent Monitor Data Heart Rate from ECG 81 NIBP 105/62 NIBP BP-Mean 76 Respiration from ECG 14 SpO2 99 I&O: 03/02/20 03/03/20 03/04/20 06:59 06:59 06:59 Intake Total 1631 2004 Output Total 1330 1790 Balance 301 215 Result Diagrams: 03/02/20 04:05 03/03/20 04:45 Phys Exam - Physical Examination Constitutional: NAD HEENT: moist MMs Respiratory: no wheezing, clear to auscultation bilateral Cardiovascular: no significant murmur Gastrointestinal: soft, non-tender jael on exlap incision -clean, dry, intact Musculoskeletal: no edema Psychiatric: normal affect Dx/Plan (1) LENIN (acute kidney injury) Code(s): N17.9 - ACUTE KIDNEY FAILURE, UNSPECIFIED Status: Acute (2) Small bowel obstruction Code(s): K56.609 - UNSP INTESTNL OBST, UNSP TO PARTIAL VERSUS COMPLETE OBST Status: Acute (3) Acute exacerbation of CHF (congestive heart failure) Code(s): I50.9 - HEART FAILURE, UNSPECIFIED Status: Acute Qualifiers: Heart failure type: systolic Qualified Code(s): I50.23 - Acute on chronic systolic (congestive) heart failure (4) Hypernatremia Code(s): E87.0 - HYPEROSMOLALITY AND HYPERNATREMIA Status: Acute (5) Afib Code(s): I48.91 - UNSPECIFIED ATRIAL FIBRILLATION Status: Acute - Plan Plan: 84 yo M admitted for: #Small Bowel Obstruction 2/2 internal hernia/adhesive band POD #6 s/p ex lap, small bowel resection and primary anastamosis - General surgery following. recs apprecaited - Meropenem. Blood cx: NGTD. Urine cx: proteus mirabilis, resistant to nitrofurantoin. - monitor drain output. - urine output adequate. #Hypotension 2/2 septic shock and volume depletion - BPs stable. Off of levophed and vasopressin since 03/01 - central line in place if needed - Continue gentle fluid hydration #Hypernatremia -149 > 145, Improved. Will continue free water replacement through today since still down 1.4L then can switch to physiologic fluid if still not with oral feeds at this time #New a-fib w/ RVR, resolved. - resolved s/p amiodarone gtt for 24 hr. Likely related to fluid overload in setting of heart failure. -Continue tele monitoring #LENIN on CKD, resolved -monitor #HFrEF w/ AICD - AICD in place - repeat ECHO 25-30% EF, grade 2/3 diastolic dysfunction, RVP 40 mm Hg. - BNP 2003-> 540. - Entresto BID. - hold coreg, lasix, aspirin - closely monitor fluid status in setting of dehydration #Prediabetes - monitor #HLD - not on statin. Monitor. Code: FULL Lines: R subclavian central line, Azevedo, PIV, Arterial line, SHARDA drain, NG tube Pressors: none currently. Diet: Trickle feeds VTE ppx: heparin. GI ppx: protonix Fluids: D5W @50cc/hr Addendum - Attending - Attending Attestation Date/Time: 03/03/20 2731 I personally evaluated the patient and discussed the management with Dr. Hickey I agree with the History, Examination, Assessment and Plan documented above with any addition or exceptions noted below. 84 yo M POD 6 from ex lap, bowel resection, and anastamosis. Small bowel follow through yesterday showed no obstruction, suspect ileus. NG tube pulled. Trial of clear liquid diet today. PT/OT/rehab screen. Hypernatremia improved. RA Quintero
[2020-03-03] MEDS ORDERED: ADMIXTURE FEE IVPB SCH ×2 (07:45→08:00)
[2020-03-03] MEDS ORDERED: SODIUM CHLORIDE IVPB SCH (07:45)
[2020-03-03] MEDS ORDERED: POTASSIUM PHOSPHATE IVPB SCH ×2 (07:45→08:00)
[2020-03-03] MEDS ORDERED: DEXTROSE IVPB SCH (08:00)
[2020-03-03] MEDS ORDERED: WATER IVPB SCH (08:00)
[2020-03-03] MEDS: Heparin 5,000 UNITS/ML VIAL SC SCH ×3 (09:55→21:05)
[2020-03-03] MEDS: Erythromycin 250 MG in Sodium Chloride 0.9% 250 ML 250 ML IVPB SCH ×3 (09:55→21:05)
[2020-03-03] MEDS: Pantoprazole 40 MG VIAL IVP SCH (09:55)
[2020-03-03] MEDS: Sacubitril 49 MG/Valsartan 51 MG TABLET PER TUBE SCH ×2 (09:56→20:20)
[2020-03-03] MEDS: Carvedilol 3.125 MG TAB PER TUBE SCH (09:56)
--- NOTE | 2020-03-03 15:10 | PRG ---
DATE OF SERVICE: 03/03/2020 SUBJECTIVE: Mr. Silva is an 84-year-old man, who is postoperative day #6, status post exploratory laparotomy with segmental small-bowel resection for ischemic bowel necrosis secondary to closed-loop small-bowel obstruction. The patient is awake and alert this morning. He reports adequate pain control. He just had a bowel movement. OBJECTIVE: VITAL SIGNS: Include blood pressure 106/72, pulse is 94, respiratory rate 16, temperature is 96.2 degrees Fahrenheit, maximum temperature in last 24 hours is 97.8 degrees Fahrenheit, oxygen saturation 98% on room air. HEART: Reveals irregular rate and rhythm. LUNGS: Clear to auscultation bilaterally. Breathing, regular and nonlabored. ABDOMEN: Soft, nontender, and nondistended. Bert-Mckeon drain has scant serosanguineous fluid. The patient clearly has no peritoneal signs on examination. NEUROLOGIC: Reveals no focal deficits present. LABORATORY FINDINGS: Today include metabolic profile; sodium 145, potassium 3.6, chloride is 108, bicarb is 30, BUN 23, creatinine 0.91, glucose is 128, phosphorus is 2.4, and magnesium is 2.1. IMPRESSION: 1. Postop day #6, status post exploratory laparotomy with segmental small-bowel resection. 2. Resolved acute hypernatremia. 3. Acute hypokalemia. 4. Acute hypophosphatemia. 5. Resolved adynamic ileus. PLAN: 1. Correct abnormal electrolytes. 2. Nasogastric tube will be discontinued and the patient will be started on clear liquid diet to be advanced as tolerated. 3. We will increase activity per Physical and Occupational Therapy. The patient is certainly hemodynamically stable for transfer to general surgical floor. Job ID: [id number]
[2020-03-03] MEDS: Acetaminophen 500 MG TAB PO SCH ×2 (15:41→21:05)
[2020-03-03 17:05] LABS: Anion Gap 11 mmol/L (10-20); BUN (Urea Nitrogen) 20 mg/dL (8.4-25.7); Calc. Creatinine Clearance 75 mL/min (70-130); Calcium 8.2 mg/dL (7.8-10.44); Carbon Dioxide 28 mmol/L (23-31); Chloride 108 mmol/L (98-107); Estimated GFR-MDRD Greater than 90; Glucose 129 mg/dL (83-110); Sodium 143 mmol/L (136-145)
[2020-03-03] MEDS: Carvedilol 3.125 MG TAB PO SCH ×2 (20:20→21:06)
--- NOTE | 2020-03-03 21:08 | EKG ---
Test Reason : STAT Blood Pressure : / mmHG Vent. Rate : 097 BPM Atrial Rate : 097 BPM P-R Int : 156 ms QRS Dur : 106 ms QT Int : 376 ms P-R-T Axes : 036 -35 088 degrees QTc Int : 477 ms Sinus rhythm with Premature atrial complexes Left axis deviation Low voltage QRS Incomplete left bundle branch block Nonspecific T wave abnormality Prolonged QT Abnormal ECG When compared with ECG of 27-FEB-2020 20:07, Sinus rhythm has replaced Atrial fibrillation Incomplete left bundle branch block is now Present Nonspecific T wave abnormality no longer evident in Inferior leads QT has lengthened Confirmed by Zenia COOPER ([id number]) on 03/03/2020 9:08:23 PM Referred By: LOU Confirmed By:Zenia COOPER
[2020-03-03] MEDS ORDERED: Multivitamins, Adult 10 ML, TRACE ELEMENT CONCENTRATE 1 ML in D15W-AA 5% with Lytes 2,0... IV SCH (22:00)
--- NOTE | 2020-03-04 01:47 | PRG ---
DATE OF SERVICE: 03/03/2020 SUBJECTIVE: The patient was seen this evening during rounds. He was lying in bed with no signs of acute distress. Nursing reported no acute events. He was transferred from the CCU today. He tolerated 25% of his clear liquid diet today. He is having multiple bowel movements. Azevedo has been removed, and he is pending void. SHARDA drain has also been removed today. The patient did ambulate. OBJECTIVE: VITAL SIGNS: Temperature 99.0, pulse 69, respirations 20, oxygen saturation 97% on room air, and blood pressure 105/66. GENERAL: Elderly male, lying in bed with no signs of acute distress. PULMONARY: Equal chest rise and fall. No signs of acute respiratory distress. ASSESSMENT: 1. Postop day #6 status post exploratory laparotomy with segmental small-bowel resection. 2. Electrolyte abnormalities, improving. 3. Resolved adynamic ileus. PLAN: 1. Continue current diet and pain regimen. 2. Repeat blood work in the morning. 3. Continue physical and occupational therapy. Trauma team to see the patient in the morning again. Job ID: [id number]
[2020-03-04] MEDS: Acetaminophen 500 MG TAB PO SCH ×4 (03:09→20:06)
[2020-03-04] MEDS: Erythromycin 250 MG in Sodium Chloride 0.9% 250 ML 250 ML IVPB SCH ×4 (03:09→20:02)
[2020-03-04 03:52] LABS: Anion Gap 11 mmol/L (10-20); BUN (Urea Nitrogen) 18 mg/dL (8.4-25.7); Calc. Creatinine Clearance 74 mL/min (70-130); Calcium 8.1 mg/dL (7.8-10.44); Carbon Dioxide 29 mmol/L (23-31); Chloride 108 mmol/L (98-107); Estimated GFR-MDRD Greater than 90; Glucose 98 mg/dL (83-110); Magnesium 2.1 mg/dL (1.6-2.6); Phosphorus 2.6 mg/dL (2.3-4.7); Potassium 3.8 mmol/L (3.5-5.1); Sodium 144 mmol/L (136-145)
--- NOTE | 2020-03-04 08:11 | PDOC.FM ---
- Subjective Subjective: Urinary retention, with intermittent cath. Some PVR that is improved since last night. Patient passing gas, no concerns, hard of hearing but a&o x4. Okay with going to rehab to continue getting stronger. - Objective Vital Signs & Weight: Vital Signs (12 hours) Temp Pulse Resp BP Pulse Ox 03/04/20 06:47 78 18 98 03/04/20 03:18 97.6 F 75 16 109/65 96 03/04/20 00:18 58 L 16 92 L 03/03/20 23:49 98.2 F 69 16 98/60 92 L Weight Admit Weight 73.482 kg Weight 77.6 kg Most Recent Monitor Data Heart Rate from ECG 67 NIBP 107/65 NIBP BP-Mean 79 Respiration from ECG 18 SpO2 100 I&O: 03/03/20 03/04/20 03/05/20 06:59 06:59 06:59 Intake Total 2004 2460 Output Total 3040 1430 Balance -1035 1030 Result Diagrams: 03/02/20 04:05 03/04/20 03:15 Phys Exam - Physical Examination Constitutional: NAD HEENT: moist MMs Neck: full ROM no respiratory distress Gastrointestinal: soft, non-tender, positive bowel sounds jael -incision clean, dry , intact Musculoskeletal: no edema Neurological: moves all 4 limbs Psychiatric: A&O x 3 Dx/Plan (1) LENIN (acute kidney injury) Code(s): N17.9 - ACUTE KIDNEY FAILURE, UNSPECIFIED Status: Acute (2) Small bowel obstruction Code(s): K56.609 - UNSP INTESTNL OBST, UNSP TO PARTIAL VERSUS COMPLETE OBST Status: Acute (3) Acute exacerbation of CHF (congestive heart failure) Code(s): I50.9 - HEART FAILURE, UNSPECIFIED Status: Acute Qualifiers: Heart failure type: systolic Qualified Code(s): I50.23 - Acute on chronic systolic (congestive) heart failure (4) Hypernatremia Code(s): E87.0 - HYPEROSMOLALITY AND HYPERNATREMIA Status: Acute (5) Afib Code(s): I48.91 - UNSPECIFIED ATRIAL FIBRILLATION Status: Acute - Plan Plan: 84 yo M admitted for: #Small Bowel Obstruction 2/2 internal hernia/adhesive band POD #7 s/p ex lap, small bowel resection and primary anastamosis - General surgery following. recs appreciated - d/c merem. Blood cx: NGTD. Urine cx: proteus mirabilis. s/p 7 day course. - drain output improving - urine output adequate. #Hypotension 2/2 septic shock and volume depletion - Off of levophed and vasopressin since 03/01 - BPs low normal, likely medication induced- hold entresto, lasix & coreg- monitor fluid status - central line in place if needed #Urinary retention -Voiding trial, intermittent straight cath PRN with measuring PVRs -flomax #Ileus-resolved - on erythromycin #Hypernatremia-resolved #New a-fib w/ RVR, resolved. - resolved s/p amiodarone gtt for 24 hr. Likely related to fluid overload in setting of heart failure. -Continue tele monitoring #LENIN on CKD, resolved -monitor #HFrEF w/ AICD - AICD in place - repeat ECHO 25-30% EF, grade 2/3 diastolic dysfunction, RVP 40 mm Hg. - BNP 2003-> 540 - hold lasix &entresoto - closely monitor fluid status in setting of dehydration #Prediabetes - monitor #HLD - not on statin. Monitor. Code: FULL Lines: R subclavian central line, Azevedo, PIV, Arterial line, SHARDA drain Pressors: none currently. Diet: CLD & ensure VTE ppx: heparin. GI ppx: protonix Fluids: SL Addendum - Attending - Attending Attestation Date/Time: 03/04/20 5272 I personally evaluated the patient and discussed the management with Dr. Hickey I agree with the History, Examination, Assessment and Plan documented above with any addition or exceptions noted below. 84 yo M POD 7 from ex lap, bowel resection, and anastamosis. Accepted to [facility] pending negative COVID testing. Anticipate d/c tomorrow. Tolerating PO. Blood pressures have been on low side, will hold BP meds today. Will decrease dose Entresto.
[2020-03-04] MEDS: Polyethylene Glycol 3350 17 GM Packet PO SCH (09:02)
[2020-03-04] MEDS: Heparin 5,000 UNITS/ML VIAL SC SCH ×3 (09:03→20:06)
[2020-03-04] MEDS: Carvedilol 3.125 MG TAB PO SCH ×2 (09:03→09:14)
[2020-03-04] MEDS: Sacubitril 49 MG/Valsartan 51 MG TABLET PO SCH ×2 (09:03→09:15)
[2020-03-04] MEDS: Pantoprazole 40 MG VIAL IVP SCH (09:03)
[2020-03-04] MEDS: Tamsulosin HCl 0.4 MG CAP PO SCH (09:03)
[2020-03-04 12:39] VITALS: BMI 22.6
--- NOTE | 2020-03-04 16:40 | PRG ---
DATE OF SERVICE: 03/04/2020 SUBJECTIVE: Mr. Silva is an 84-year-old man who is postoperative day #7 status post exploratory laparotomy with segmental small-bowel resection and primary anastomosis for ischemic bowel necrosis secondary to closed-loop small-bowel obstruction. The patient is awake and alert today. He is tolerating clear liquid diet, having normal bowel and urinary function. OBJECTIVE: VITAL SIGNS: This morning include blood pressure 96/60, pulse is 72, respiratory rate is 16, temperature 97.7 degrees Fahrenheit, and oxygen saturation 95% on room air. HEART: Irregular rate and rhythm. LUNGS: Clear to auscultation bilaterally. ABDOMEN: Soft, nontender, and nondistended. The incision remains intact, clean, and dry. NEUROLOGIC: No focal deficits present. LABORATORY FINDINGS: Today include metabolic profile with sodium 144, potassium 3.8, chloride is 108, bicarb is 29, BUN is 18, creatinine 0.82, and glucose 98. Magnesium 2.1. Phosphorus is 2.6. IMPRESSIONS: 1. Postoperative day #7 status post exploratory laparotomy, segmental small-bowel resection, and primary anastomosis. 2. Resolved adynamic ileus. PLAN: 1. Advance diet to regular. 2. Increase activity per Physical and Occupational Therapy. 3. The patient may be discharged to correction facility at the discretion of the primary service. 4. [place] may be removed at the correction facility on 03/11/2020. 5. The patient may follow up with me in 2 weeks. Job ID: [id number]
[2020-03-04 20:16] LABS: SARS-CoV-2 MS2 Positive; SARS-CoV-2 N Gene Negative; SARS-CoV-2 S Gene Negative; SARS-CoV-2 orf1ab Negative
[2020-03-04] MEDS ORDERED: Dutasteride 0.5 MG CAP PO SCH (21:00)
--- NOTE | 2020-03-04 23:34 | PRG ---
DATE OF SERVICE: 03/04/2020 SUBJECTIVE: The patient was seen this evening during rounds. He was resting comfortably and asleep with no signs of acute distress. Nursing reported the patient has only been able to void intermittently and has required intermittent I and O cath. The patient is on Flomax at this time. Avodart was started this evening. OBJECTIVE: VITAL SIGNS: Temperature 97.9, pulse 77, respirations 18, oxygen saturation 97% on room air, blood pressure 110/72. GENERAL: Well-appearing elderly male, lying in bed, sitting up asleep with no signs of acute distress. PULMONARY: Equal chest rise and fall. No signs of acute respiratory distress. ASSESSMENT: 1. Postoperative day #7, status post small bowel obstruction and strangulated small bowel due to internal hernia. 2. Ileus, resolved. 3. History of hypertension, diabetes, pacemaker, and chronic kidney disease. 4. Intermittent urinary retention. PLAN: Continue current diet and pain regimen. Continue physical and occupational therapy. We will start Avodart this evening for intermittent urinary retention. I did ask nursing to sit the patient up at the edge of the bed or have him director of direct marketing order to void before trying I and O cath. The patient can be I and O cath'd p.r.n. if bladder scanner reads greater than 300 or patient reports he needs to void and is not able to. Job ID: [id number]
[2020-03-05] MEDS: Acetaminophen 500 MG TAB PO SCH ×3 (02:54→15:00)
[2020-03-05] MEDS: Erythromycin 250 MG in Sodium Chloride 0.9% 250 ML 250 ML IVPB SCH ×3 (02:54→15:05)
--- NOTE | 2020-03-05 07:07 | PDOC.FM ---
- Subjective Subjective: NAEO. Having BM. Eating well. No symptoms or concerns form patient. Nursing reports urinary retention requiring in and out catheterization. Discussed with pt starting moran, continuing flomax with outpt urology visit - Objective MAR Reviewed: Yes Vital Signs & Weight: Vital Signs (12 hours) Temp Pulse Resp BP Pulse Ox 03/05/20 06:39 84 16 03/04/20 19:39 97.9 F 77 18 110/72 97 Weight Admit Weight 75.206 kg Weight 77.6 kg Most Recent Monitor Data Heart Rate from ECG 67 NIBP 107/65 NIBP BP-Mean 79 Respiration from ECG 18 SpO2 100 I&O: 03/04/20 03/05/20 03/06/20 06:59 06:59 06:59 Intake Total 2460 1460 Output Total 1430 1515 Balance 1030 -55 Result Diagrams: 03/02/20 04:05 03/04/20 03:15 Phys Exam - Physical Examination Constitutional: NAD HEENT: moist MMs Respiratory: no wheezing, clear to auscultation bilateral Cardiovascular: RRR, no significant murmur Gastrointestinal: soft, non-tender incision bandaged Musculoskeletal: no edema Neurological: non-focal, moves all 4 limbs Dx/Plan (1) LENIN (acute kidney injury) Code(s): N17.9 - ACUTE KIDNEY FAILURE, UNSPECIFIED Status: Acute (2) Small bowel obstruction Code(s): K56.609 - UNSP INTESTNL OBST, UNSP TO PARTIAL VERSUS COMPLETE OBST Status: Acute (3) Acute exacerbation of CHF (congestive heart failure) Code(s): I50.9 - HEART FAILURE, UNSPECIFIED Status: Acute Qualifiers: Heart failure type: systolic Qualified Code(s): I50.23 - Acute on chronic systolic (congestive) heart failure (4) Hypernatremia Code(s): E87.0 - HYPEROSMOLALITY AND HYPERNATREMIA Status: Acute (5) Afib Code(s): I48.91 - UNSPECIFIED ATRIAL FIBRILLATION Status: Acute - Plan Plan: 84 yo M admitted for: #Small Bowel Obstruction 2/2 internal hernia/adhesive band POD #8 s/p ex lap, small bowel resection and primary anastamosis - General surgery following. recs appreciated - d/c merem. Blood cx: NGTD. Urine cx: proteus mirabilis. s/p 7 day course. - drain output improving - urine output adequate. #Hypotension 2/2 septic shock and volume depletion - Off of levophed and vasopressin since 03/01 - BPs low normal, likely medication induced- hold entresto, lasix & coreg- monitor fluid status - will need to resume at rehab when BPs improve #Urinary retention -Place moran, continue flomax, will need outpatient urology follow up -Continue voiding trials at rehab #Ileus-resolved - on erythromycin #Hypernatremia-resolved #New a-fib w/ RVR, resolved. - resolved s/p amiodarone gtt for 24 hr. Likely related to fluid overload in setting of heart failure. -Continue tele monitoring #LENIN on CKD, resolved -monitor #HFrEF w/ AICD - AICD in place - repeat ECHO 25-30% EF, grade 2/3 diastolic dysfunction, RVP 40 mm Hg. - BNP 2003-> 540 - hold lasix &entresoto - closely monitor fluid status in setting of dehydration #Prediabetes - monitor #HLD - not on statin. Monitor. Code: FULL Lines: R subclavian central line, Moran, PIV, Arterial line, SHARDA drain Pressors: none currently. Diet: CLD & ensure VTE ppx: heparin. GI ppx: protonix Fluids: SL dispo: [facility]/SNF today Addendum - Attending - Attending Attestation Date/Time: 03/05/20 1020 I personally evaluated the patient and discussed the management with Dr. Hickey I agree with the History, Examination, Assessment and Plan documented above with any addition or exceptions noted below. 84 yo M POD 8 from ex lap, bowel resection, and anastamosis. Accepted to [facility] for SNF.. Tolerating PO. Restarted coreg today. Held entresto 2/2 BPs on low side. COVID neg. Discharge to [facility] today.
[2020-03-05 08:26] VITALS: BP 119/72; TEMP 97.7
[2020-03-05] MEDS ORDERED: Carvedilol 3.125 MG TAB PO SCH ×2 (10:00→17:00)
[2020-03-05] MEDS: Pantoprazole 40 MG VIAL IVP SCH (10:31)
[2020-03-05] MEDS: Polyethylene Glycol 3350 17 GM Packet PO SCH (10:31)
[2020-03-05] MEDS: Tamsulosin HCl 0.4 MG CAP PO SCH (10:31)
[2020-03-05] MEDS: Heparin 5,000 UNITS/ML VIAL SC SCH ×2 (10:32→15:00)
--- NOTE | 2020-03-05 18:39 | PRG ---
DATE OF SERVICE: 03/05/2020 SUBJECTIVE: Mr. Silva is an 84-year-old man who is postop day #8, status post exploratory laparotomy with segmental small bowel resection and primary anastomosis for ischemic bowel necrosis. The patient is awake and alert today. He reports adequate pain control. He is tolerating general diet, having normal bowel and urinary function. OBJECTIVE: VITAL SIGNS: Today include blood pressure 119/72, pulse 88, respiratory rate is 18, temperature 97.7 degrees Fahrenheit, oxygen saturation is 98% on room air. ABDOMEN: Soft, nontender, and nondistended. There was some seropurulent fluid in the midportion of the midline incision. This was probed with a Q-tip and evacuating large amount of fluid consistent with deep seroma. All jael were removed and wound was inspected. The fascia is intact. No residual gross purulence noted. The wound was covered with wet-to-dry sterile gauze dressing. Dressing changes will be initiated twice daily. The patient may be discharged to the [facility] facility at the discretion of the primary service. The patient is to follow up with me in the Surgery [facility] in 2 weeks. Job ID: [id number]
--- NOTE | 2020-03-05 20:07 | DIS ---
DATE OF ADMISSION: 02/25/2020 DATE OF DISCHARGE: 03/05/2020 ADMITTING ATTENDING: Mikhail Mario MD DISCHARGE ATTENDING: Herb Quintero MD RESIDENT: Alisa Hickey MD, PGY-2 CONSULTS: 1. General Surgery, Dr. Cole. 2. PT/OT. PRIMARY DIAGNOSES: 1. Small bowel obstruction secondary to internal hernia status post small bowel resection with primary anastomoses. 2. Postop ileus, resolved. 3. Hypotension secondary to septic shock and volume depletion. 4. Acute urinary retention. 5. New onset atrial fibrillation with rapid ventricular response, resolved. 6. Low-normal blood pressures. SECONDARY DIAGNOSES: 1. Heart failure with reduced ejection fraction with automatic implantable cardioverter-defibrillator. 2. Chronic kidney disease. 3. Prediabetes. 4. Hyperlipidemia. 5. History of prostatectomy. PROCEDURES AND IMAGIN. Echocardiogram, ejection fraction 25% to 30%. Grade 2/3 diastolic dysfunction. Dilated right ventricular with reduced RV systolic function. Mild pulmonic regurgitation. Moderate tricuspid regurgitation. 2. Exploratory laparotomy with segmental small bowel resection and primary anastomoses on 02/26/2020. 3. Abdomen and pelvis CT, abnormally dilated small bowel, evidence for small bowel obstruction with possibly small bowel wall thickening. 4. Small bowel x-ray followthrough severe ileus. 5. Venograms, no evidence of deep venous thrombosis. DISCHARGE MEDICATIONS: 1. Aspirin 325 mg p.o. daily. 2. Coreg 3.125 mg p.o. b.i.d. 3. Dutasteride 0.5 mg p.o. at bedtime. 4. Acetaminophen. 5. MiraLAX. 6. Protonix. 7. Tamsulosin 0.4 mg p.o. daily. Currently antihypertensives held include Entresto 49 mg-51 mg. due to low-normal BPs. Please resume as tolerated. DISCONTINUED MEDICATIONS: None HISTORY OF PRESENT ILLNESS/HOSPITAL COURSE: Mr. Rosetta Silva is an 84-year-old male with dementia and visual impairment, who presented to the ER with abdominal pain. He was found to have a small bowel obstruction and underwent ex-lap with segmental bowel resection and primary anastomoses. He developed a postop ileus in which resolved with physical therapy and erythrocmcin. Also developed acute urinary retention requirnig placement of moran catheter. Otherwise postop course was uncomplicated. Also, he was also found to be hypotensive, likely secondary to volume depletion and so did initially require Levophed and vasopressin, which was successfully weaned. Unfortunately, his blood pressures remained low normal likely due to just overall decreased oral intake and so his Coreg and Entresto had to be temporarily held. His Entresto will be held upon discharge since they are still low, but need to be resumed once blood pressure can tolerate because of his heart failure. In addition, he did develop an ileus that resolved with erythromycin and mobilization. He is being discharged to [facility]. DISPOSITION: Stable. DISCHARGE INSTRUCTIONS: 1. Location: [facility]. 2. Diet: Heart healthy fluid-restricted diet. 3. Activity: Ad augustine as tolerated. 4. Followup: a. Please follow up with K[facility] at [facility]. b. Please resume Entresto as much as blood pressure can toelrate c. After day 5, if the patient is still needing a Moran despite Moran trials, please arrange for urology followup d. Please follow up with [facility] in 2 to 3 days or once discharged from [facility]. Job ID: [id number] MTDD
== END 2020-03-05 16:45 | DRG 329 ==
LOC: ERS 10:57 → T4-B 15:23 → CCU 02-26 11:15 → IMCU/EMU 03-01 19:55 → ONC 03-03 18:23
PROVIDERS: ADMIT Student in an Organized Health Care Education/Training Program; ATTEND Student in an Organized Health Care Education/Training Program
PROC: 0DB80ZZ Excision of Small Intestine, Open Approach (ICD-10-PCS; principal; 2020-02-26)
PROC: 0WQF0ZZ Repair Abdominal Wall, Open Approach (ICD-10-PCS; 2020-02-26)
PROC: 02HV33Z Insertion of Infusion Device into Superior Vena Cava, Percutaneous Approach (ICD-10-PCS; 2020-02-26)
PROC: 3E043XZ Introduction of Vasopressor into Central Vein, Percutaneous Approach (ICD-10-PCS; 2020-02-26)
PROC: 0H97XZZ Drainage of Abdomen Skin, External Approach (ICD-10-PCS; 2020-02-26)
DX: K56.51 Intestinal adhesions [bands], with partial obstruction (principal); R65.21 Severe sepsis with septic shock; A41.9 Sepsis, unspecified organism; J96.00 Acute respiratory failure, unspecified whether with hypoxia or hypercapnia; I50.23 Acute on chronic systolic (congestive) heart failure; N17.9 Acute kidney failure, unspecified; I13.0 Hypertensive heart and chronic kidney disease with heart failure and stage 1 through stage 4 chronic kidney disease, or unspecified chronic kidney disease; E87.0 Hyperosmolality and hypernatremia; L76.34 Postprocedural seroma of skin and subcutaneous tissue following other procedure; K56.7 Ileus, unspecified; I48.91 Unspecified atrial fibrillation; E78.5 Hyperlipidemia, unspecified; N18.9 Chronic kidney disease, unspecified; E86.9 Volume depletion, unspecified; R73.03 Prediabetes; G30.1 Alzheimer's disease with late onset; F02.80 Dementia in other diseases classified elsewhere, unspecified severity, without behavioral disturbance, psychotic disturbance, mood disturbance, and anxiety; H40.9 Unspecified glaucoma; R33.9 Retention of urine, unspecified; Z87.891 Personal history of nicotine dependence; Z88.0 Allergy status to penicillin; Z95.0 Presence of cardiac pacemaker; Z79.82 Long term (current) use of aspirin; Z79.899 Other long term (current) drug therapy; E83.39 Other disorders of phosphorus metabolism; D69.6 Thrombocytopenia, unspecified; Y83.8 Other surgical procedures as the cause of abnormal reaction of the patient, or of later complication, without mention of misadventure at the time of the procedure
CPT/HCPCS: 36415; 36416; 71045; 74018; 74177; 74250; 80048; 80053; 81001; 82533; 82805; 83605; 83690; 83735; 83880; 84100; 84145; 84484; 85025; 86850; 86900; 86901; 87040; 87077; 87086; 87186; 87635; 88307; 93005; 93010; 93306; 93970; 94002; 94003; 94640; 94660; 94667; 94668; 96374; 96375; C9113; J0282; J1364; J1644; J1720; J1940; J2185; J2250; J2405; J2704; J2765; J3010; J3475; J3490; J7050; J7070; J7620; P9045; Q9963; Q9967; U0003

== ENCOUNTER 2020-03-31 16:23 | Inpatient (IN) | payer MEDICARE, MEDICAID, OTHER ==
[~2020-03-31 16:23] MED LIST changes: -MD-Gastroview 120 ML BOT ONE
[2020-03-31] MEDS ORDERED: Cefepime 2 GM VIAL ONE (17:09)
[2020-03-31] MEDS ORDERED: Vancomycin 1 GM/200 ML BAG ONE (17:09)
[2020-03-31 17:35] LABS: Hemoglobin 14.8 g/dL (14.0-18.0); Mean Corpuscular HGB CONC 30.4 g/dL (32.0-36.0); Mean Corpuscular Hemoglobin 28.9 pg (27.0-31.0); Mean Corpuscular Volume 95.1 fL (78.0-98.0); Mean Platelet Volume 10.5 fL (7.4-10.4); Platelet Count 225 thou/uL (130-400); RBC Distribution Width 15.9 % (11.5-14.5); Red Blood Cell (RBC) Count 5.13 mill/uL (4.70-6.10); White Blood Cell (WBC) Count 28.3 thou/uL (4.8-10.8)
[2020-03-31 17:36] LABS: Anisocytosis SLIGHT = 6-15 cells (100X) (0-5/hpf); Band 11 % (5-11); Lymphocytes 2 % (21-51); MDiff Complete? YES; Monocytes 2 % (0-10); Neutrophil 85 % (42-75); Platelet Morphology Comment Appears Adequate; Polychromasia SLIGHT = 2-3 cells (100X) (0-2/hpf)
[2020-03-31 17:41] LABS: ALT (SGPT) 10 U/L (8-55); AST (SGOT) 30 U/L (5-34); Alkaline Phosphatase 153 U/L (40-110); Anion Gap 25 mmol/L (10-20); BUN (Urea Nitrogen) 65 mg/dL (8.4-25.7); Bilirubin, Total 2.9 mg/dL (0.2-1.2); Calc. Creatinine Clearance 0 mL/min (70-130); Calcium 8.9 mg/dL (7.8-10.44); Carbon Dioxide 15 mmol/L (23-31); Chloride 103 mmol/L (98-107); Estimated GFR-MDRD 42; Globulin 4.7 g/dL (2.4-3.5); Glucose 189 mg/dL (83-110); Potassium 5.3 mmol/L (3.5-5.1); Protein, Total 7.7 g/dL (5.8-8.1); Sodium 138 mmol/L (136-145)
--- NOTE | 2020-03-31 18:13 | RAD ---
Chest AP view INDICATION: Abdominal wound with feeding tube and hypotension with tachycardia; history of left ventr icular failure, kidney failure, UTI and hypertension COMPARISON: Chest radiograph dated February 27, 2020 FINDINGS: Lungs: There is hyperlucency seen within the right upper and right midlung zone which is new. There is increased opacity within the right lung base and medial right upper lobe. There is airspace consolidation within the retrocardiac left lower lobe with obscuration of the left hemidiaphragm. Cardiac silhouette: There is persisting cardiomegaly. Single lead AICD is unchanged. Pulmonary vasculature: Normal Pleural spaces: There is suggestion of a small right and tiny left pleural effusion Upper abdomen: No abnormality seen. Osseous structures: No acute osseous abnormality. Additional findings: There is slight shifting of the tracheal air column to the right. There is susp icion for elevation the right hemidiaphragm with bowel gas seen underlying the right hemithorax. IMPRESSION: Findings most suspicious for lobar collapse of the right lung with hyperaeration of residual lung wit hin the right hemithorax. Obstructing lesion within the airway cannot be entirely excluded. There is airspace consolidation retrocardiac left lower lobe. Findings can be related to aspiration. Dedica bárbara CT of the thorax is recommended for additional characterization. Findings called to Dr. Polanco at 6:08 PM on March 31, 2020. Persistent cardiomegaly with small bilateral pleural effusions. Reflect a component of CHF.
[2020-03-31 18:22] LABS: Bacteria/HPF 4+ HPF (None Seen); Bilirubin Negative (Negative); Blood, Urine 3+ (Negative); Clarity Extra Turbid (Clear); Glucose, Urine (Dipstick) Normal (Negative); Leukocyte 500 Leu/uL (Negative); Nitrite Negative (Negative); Protein, Urine (Dipstick) 300 mg/dL (Neg-Trace); RBC/HPF Greater than 50 HPF (0-3); WBC/HPF Greater than 50 HPF (0-3)
--- NOTE | 2020-03-31 19:47 | CT ---
EXAM: CT chest, abdomen, and pelvis with IV contrast: HISTORY: Abnormal chest x-ray suggesting hydropneumothorax. Patient is septic. History of prior abdominal surg travis COMPARISON: CT abdomen and pelvis on 02/25/2020 FINDINGS: CT THORAX: Lungs: There is what appears to be a large right hydropneumothorax present with collapse of the right upper lobe. There is a fluid and air collection seen in the right lower lobe which measures 7.6 cm x 7.6 cm which could be related to area of necrosis within the right lower lobe. Additional adjacent cystic structures are seen in the visualized limited aerated right lung. Findings could be related to necrosis in the right lower lobe with development of bronchopleural fistula resulting in a complic ated right hydropneumothorax which is likely related to infection. A small left pleural effusion is present with adjacent consolidation probably attributable to passive atelectasis. Minimal patchy parenchymal densities are seen in the left upper lobe which could be related to focal areas of pneumonitis. There is narrowing of the right mainstem bronchus. Lymph nodes: No lymphadenopathy. Mediastinum: The heart is enlarged. A single lead left subclavian AICD device is noted in place. Vasc ular calcifications are seen in the coronary arteries and involving the thoracic aorta. Chest wall: Subcutaneous edema is present. CT ABDOMEN AND PELVIS: Liver: Grossly normal in appearance for arterial phase of imaging. Gallbladder: Not well evaluated on this exam.\ Pancreas: Grossly normal CT appearance for phase of imaging. Spleen:Grossly normal CT appearance for phase of imaging. Adrenal glands: Within normal limits. Kidneys: Bilateral renal cysts are again seen. Urinary Bladder: Decompressed. Reproductive organs: Within normal limits for patient's age. Bowel: Postoperative changes of loops of small bowel in the pelvis are seen. Findings are likely rela bárbara to small bowel resection compared to prior exam. Adenopathy:No lymphadenopathy within the abdomen or pelvis. Peritoneum: There is mild edema seen within the mesentery and in a presacral location with minimal am ount of free fluid in the lower pelvis. No fluid collection is seen. Abdominal wall: Midline defect/wound is present. Diffuse subcutaneous edema is seen. There is a right inguinal hernia which does contain a small amount of fluid. Osseous structures: Multilevel degenerative changes in the spine. IMPRESSION: 1. Complicated right hydropneumothorax with a lung parenchymal fluid and air collection seen in the r ight lower lobe which may represent area of necrosis within the right lower lobe. These findings are likely related to infection in the right lower lobe with area of necrosis and probable developmen t of a bronchopleural fistula resulting in a complicated right hydropneumothorax. The complicated right hydropneumothorax is likely attributable to infection as well. 2. Focal pneumonitis left upper lobe. Follow-up to resolution is recommended. 3. Small left pleural effusion and associated atelectasis. 4. Cardiomegaly. 5. Subcutaneous edema with mild mesenteric edema, and findings are likely attributable to anasarca. 6. Midline abdominal wall defect with postoperative changes of loops of small bowel in the abdomen li la nena due to prior bowel resection. 7. Above findings discussed with Dr. Polanco in the emergency department on 03/31/2020 at 1937 hours.
--- NOTE | 2020-03-31 20:05 | PDOC.FPRHP ---
- History of Present Illness History of Present Illness: Rosetta Silva is an 84 year old M with a PMH of HFrEF with AICD, CKD, HTN, HLD, pre- diabetes, recent hx of SBO s/p ex lap and resection, and hx of new onset a-fib w / resolution during SBO visit who was sent from [facility] secondary to sepsis per the ED visit note. Pt had SBO s/p resection and discharged on 03/05/20 by the family medicine service, Dr. Cole performed the resection. He subsequently was found to have his abdominal musculature exposed after dehiscence in the ED. In the ED a CXR, CT revealed significant R lung pathology requiring a chest tube to placed at ED bedside by Dr. Hyman. Pt was noted to by hemodynamically stable, 95% on RA. Pt was started on cefepime, vancomycin and administered 3 L NS. Pt was subsequently admitted to the medicine service. - Allergies/Adverse Reactions Allergies Allergy/AdvReac Type Severity Reaction Status Date / Time Penicillins Allergy Verified 01/05/20 22:24 environmental dust mites Allergy Uncoded 01/05/20 22:24 - Home Medications Medication Instructions Recorded Confirmed Type Aspirin 325 mg PO DAILY #30 tab 10/15/18 04/01/20 Rx Dutasteride [Avodart] 0.5 mg PO HS cap 03/05/20 04/01/20 Rx Polyethylene Glycol 3350 [Miralax] 17 gm PO DAILY pk 03/05/20 04/01/20 Rx Tamsulosin HCl [Flomax] 0.4 mg PO DAILY cap 03/05/20 04/01/20 Rx Acetaminophen [Tylenol] 1,000 mg PO QID 04/01/20 04/01/20 History Ipratropium/Albuterol Sulfate 3 ml NEB Q4HR PRN 04/01/20 04/01/20 History [Duoneb] Pantoprazole [Protonix] 40 mg PO DAILY 04/01/20 04/01/20 History - History PMHx: HFrEF with AICD, CKD, HTN, HLD, hx of prostate cancer PSHx: exploratory laparotomy and small bowel resection with primary anastamoses FHx: noncontributory Social: denies smoking, drugs, alcohol use - Review of Systems ROS unobtainable: due to mental status - Vital signs BP: 107/75 HR: 109 RR: 33 Tmax: 97.4 Pox: 95% on 3L Wt: 70 kg - Physical Exam -Constitutional: Pt awake in no apparent stress but obvious discomfort HEENT: PERRLA, EOMI Neck: FROM, no JVD Heart: RRR, normal S1/S2 -Lungs: L anterior lung field good air movement, no crackles Decreased air movement to anterior, base of R lung Abdomen: soft, bowel sounds present -Abdomen: 8 cm x 3 cm wound on abdomen exposing musculature underneath, no signs of purulent drainage Neurological: no focal deficit, CN II-XII intact Skin: no rash/lesions, capillary refill <2 seconds Heme/Lymphatic: no purpura, no petechia -Psychiatric: unable to assess FMR H&P: Results - Labs Result Diagrams: 04/01/20 02:49 04/01/20 02:49 Lab results: WBC 28.3 thou/uL (4.8-10.8) H 03/31/20 16:56 Hgb 14.8 g/dL (14.0-18.0) 03/31/20 16:56 Hct 48.8 % (42.0-52.0) 03/31/20 16:56 MCV 95.1 fL (78.0-98.0) 03/31/20 16:56 Plt Count 225 thou/uL (130-400) 03/31/20 16:56 Band Neuts % (Manual) 11 % (5-11) 03/31/20 16:56 Sodium 138 mmol/L (136-145) 03/31/20 16:56 Potassium 5.3 mmol/L (3.5-5.1) H 03/31/20 16:56 Chloride 103 mmol/L (98-107) 03/31/20 16:56 Carbon Dioxide 15 mmol/L (23-31) L 03/31/20 16:56 BUN 65 mg/dL (8.4-25.7) H 03/31/20 16:56 Creatinine 1.88 mg/dL (0.7-1.3) H 03/31/20 16:56 Glucose 189 mg/dL (83-110) H 03/31/20 16:56 Lactic Acid 8.9 mmol/L (0.5-2.2) H* 03/31/20 16:56 Calcium 8.9 mg/dL (7.8-10.44) 03/31/20 16:56 Total Bilirubin 2.9 mg/dL (0.2-1.2) H 03/31/20 16:56 AST 30 U/L (5-34) 03/31/20 16:56 ALT 10 U/L (8-55) 03/31/20 16:56 Alkaline Phosphatase 153 U/L (40-110) H 03/31/20 16:56 Serum Total Protein 7.7 g/dL (5.8-8.1) 03/31/20 16:56 Albumin 3.0 g/dL (3.4-4.8) L 03/31/20 16:56 Urine Ketones Negative mg/dL (Negative) 03/31/20 17:50 Urine Blood 3+ (Negative) A 03/31/20 17:50 Urine Nitrite Negative (Negative) 03/31/20 17:50 Ur Leukocyte Esterase 500 Max/uL (Negative) A 03/31/20 17:50 Urine RBC Greater than 50 HPF (0-3) A 03/31/20 17:50 Urine WBC Greater than 50 HPF (0-3) A 03/31/20 17:50 Ur Squamous Epith Cells 7-10 HPF (0-3) A 03/31/20 17:50 Urine Bacteria 4+ HPF (None Seen) A 03/31/20 17:50 - EKG Interpretation EKG: Sinus tachycardia w/ premature PVC's - Radiology Interpretation CT scan - chest Status: report reviewed by me Additional comment: Necrotic R lung, hydropneumothorax 7.6 x 7.6 cm, bronchopleural fistula, L pleural effusion. L upper lobe pneumonitis CT scan - abdomen Status: report reviewed by me Additional comment: midline wound w/ diffuse subcutaneous edema/anasarca FMR H&P: A/P - Problem List (1) Abdominal wall dehiscence Current Visit: Yes Status: Acute Code(s): T81.30XA - DISRUPTION OF WOUND, UNSPECIFIED, INITIAL ENCOUNTER (2) Hydropneumothorax Current Visit: Yes Status: Acute Code(s): J94.8 - OTHER SPECIFIED PLEURAL CONDITIONS (3) CKD (chronic kidney disease) Current Visit: Yes Status: Acute Code(s): N18.9 - CHRONIC KIDNEY DISEASE, UNSPECIFIED (4) LENIN (acute kidney injury) Current Visit: No Status: Acute Code(s): N17.9 - ACUTE KIDNEY FAILURE, UNSPECIFIED (5) DM type 2 (diabetes mellitus, type 2) Current Visit: No Status: Chronic Qualifiers: Diabetes mellitus intermediate card tender insulin use: without chcf use Diabetes mellitus complication status: with unspecified complications (6) Dyslipidemia Current Visit: No Status: Chronic Code(s): E78.5 - HYPERLIPIDEMIA, UNSPECIFIED - Plan # Sepsis # 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 Hyman; chest tube placed, mary recs - consult Dr. Crowe; mary recs - Lactic acid 8.9 on admission; trend lactic acid - monitor oxygen requirements # Abdominal Wall Dehiscent - abx as above - consult Dr. Cole in the morning # UTI - pending Cx - abx as above # LENIN on CKD - monitor for resolution with fluids # HFrEF, EF 25-30% w/ AICD - monitor for fluid overload with administration of bolus fluids for sepsis - hold coreg for BP's - unsure if entresto was restarted at [facility] # HLD - continue home meds # Prediabetes - start sliding scale insulin # BPH - continue home meds Dispo: Admit to [facility] inpt Code: Full - ED discussed with family Fluids: SL - consider starting in am Diet: NPO VTE: SCDs FMR H&P: Upper Level - Plan Date/Time: 03/31/202003 Kyle Schmidt MD, have evaluated this patient and agree with findings/plan as outlined by internal revenue agent resident. Pertinent changes/additions are listed here. Rosetta Silva is an 84 year old M with a PMH of HFrEF with AICD, CKD, HTN, recent hospitalization for SBO where exploratory laparatomy was performed and small bowel resection done as well. He was sent from [facility] to [facility] ED due to abnormal vitals. ED started sepsis work up and it was noted that he had elevated WBC count of 28.3, Lactic acid of 8.9, worsened kidney function from baseline with Cr of 1.88. Patient was started on vanc and cefepime and given 3 L NS in the ED. CT chest and abd was done that showed complex R hydropneumothorax, necrosis of RLL and bronchopleural fistula, patients wound of ex lap was also dehisced. Pt was altered and did not expressed complaints other than feeling bad all over. Dr. Hyman was consulted from ED and placed right sided chest tube. Patient being admitted for sepsis 2/2 pulm source vs abdominal source. Will continue empiric vanc and cefepime and add clinda for anaerobic coverage. Continue to trend labs and provide gentle rehydration and monitor for fluid overload. Will consult Dr. Cole in the morning as he performed the ex lap. Blood and urine cultures pending. Monitor kidney function , anticipate improvement with fluids. Will continue home medications and add SSI and accuchecks. Please see internal revenue agent note above which I have reviewed and agree with.
[2020-03-31] MEDS ORDERED: Lidocaine 1% w/Epinephrine 1:100K 20 ML VIAL ONE (20:43)
--- NOTE | 2020-03-31 22:37 | RAD ---
EXAM: CHEST ONE VIEW HISTORY: Post thoracostomy tube. COMPARISON: 03/31/2020 FINDINGS: There has been interval placement of right-sided thoracostomy tube with decrease in size of the large right hydropneumothorax. Right-sided pneumothorax does persist, but the right lung has expanded. Parenchymal densities are seen in the right lower lobe which could be related to volume loss or secon brett to pneumonia. Small left pleural effusion and atelectasis is again seen. Cardiac silhouette is mildly enlarged. Single lead left subclavian AICD device is again noted. No other interval change . IMPRESSION: 1. Interval placement of a right-sided thoracostomy tube with interval decrease in size of the large right hydropneumothorax. A right pneumothorax does persist. 2. Parenchymal opacities right lower lobe which could be related to volume loss or secondary to pneum onia. 3. Small left pleural effusion. 4. Cardiomegaly.
[2020-03-31] MEDS ORDERED: Acetaminophen 325 MG TAB PO PRN (23:35)
[2020-03-31] MEDS ORDERED: Ondansetron PF 4 MG/2 ML Vial IVP PRN (23:35)
[2020-03-31] MEDS ORDERED: Ondansetron ODT 4 MG TAB SL PRN (23:35)
--- NOTE | 2020-04-01 02:24 | CON ---
DATE OF CONSULTATION: HISTORY OF PRESENT ILLNESS: An 84-year-old gentleman recently discharged from a prolonged hospitalization in February related to infarcted small bowel related to an internal hernia with resection. He had some wound problems, ultimately being discharged to long-term from previously living at home with a family member or friend. He returned to the [facility] [place] from long-term, and I am not sure of the exact reason. In any event, a chest x-ray was abnormal, leading to a CT scan showing a hydropneumothorax on the right. The patient's chest x-ray during his last admission was rather nonspecific, but may have demonstrated either a right pleural effusion or a right lower lobe infiltrate. PAST MEDICAL HISTORY: In any event, he has past medical history of hypertension, dyslipidemia, congestive heart failure with an EF of 25% to 30% with an AICD being placed. He does have a smoking history and a history of alcohol use in the past. ALLERGIES: HE REPORTS ALLERGIES TO PENICILLIN. MEDICATIONS: His medicines prior to admission include, 1. Aspirin. 2. Avodart. 3. Protonix. 4. MiraLAX. 5. Flomax. 6. Inhalers. PAST SURGICAL HISTORY: Includes previously noted laparotomy in February with small bowel resection. He has also had a prostatectomy and cataract surgery. PHYSICAL EXAMINATION: GENERAL: Awake. Responds to questions with appropriate answers. LUNGS: Decreased breath sounds on the right. CARDIAC: Demonstrates heart rate of 110 with no murmurs. ABDOMEN: Has an open granulating wound with probably exposed omentum that is granulating. EXTREMITIES: Without edema. PLAN: Plan at this time is for chest tube placement, and then I expect that he will have either bronchopleural fistula or less likely an esophageal perforation with hydropneumothorax. In any event, cultures will be sent and will reassess after antibiotics have been administered. Job ID: [id number]
[2020-04-01] MEDS ORDERED: Sodium Chloride 0.9% (PF) 10 ML VIAL FS PRN (02:30)
[2020-04-01 03:19] LABS: Anion Gap 25 mmol/L (10-20); BUN (Urea Nitrogen) 56 mg/dL (8.4-25.7); Band 6 % (5-11); Calc. Creatinine Clearance 38 mL/min (70-130); Calcium 8.3 mg/dL (7.8-10.44); Carbon Dioxide 11 mmol/L (23-31); Chloride 102 mmol/L (98-107); Estimated GFR-MDRD 50; Glucose 375 mg/dL (83-110); Hemoglobin 15.6 g/dL (14.0-18.0); MDiff Complete? YES; Mean Corpuscular HGB CONC 30.7 g/dL (32.0-36.0); Mean Corpuscular Hemoglobin 29.5 pg (27.0-31.0); Mean Corpuscular Volume 96.3 fL (78.0-98.0); Mean Platelet Volume 10.4 fL (7.4-10.4); Monocytes 2 % (0-10); Neutrophil 92 % (42-75); Nucleated RBC 1 % (0); Platelet Count 197 thou/uL (130-400); Platelet Morphology Comment Appears Adequate; Potassium 5.2 mmol/L (3.5-5.1); RBC Distribution Width 16.1 % (11.5-14.5); Red Blood Cell (RBC) Count 5.27 mill/uL (4.70-6.10); Sodium 133 mmol/L (136-145); White Blood Cell (WBC) Count 24.9 thou/uL (4.8-10.8)
[2020-04-01] MEDS: Acetaminophen 500 MG TAB PO SCH ×4 (03:30→19:52)
[2020-04-01] MEDS: Clindamycin/D5W 600 MG in Premix Bag 1 BAG IVPB SCH ×3 (03:33→19:49)
[2020-04-01] MEDS ORDERED: Dextrose 50% Abboject 50 ML SYRINGE SLOW IVP PRN (03:33)
[2020-04-01] MEDS ORDERED: Dextrose 5% in Water 1,000 ML IV PRN (03:33)
[2020-04-01] MEDS ORDERED: HumaLOG 300 UNITS/3 ML VIAL SC PRN (03:33)
[2020-04-01] MEDS: Lactated Ringer's 1,000 ML IV SCH ×3 (04:19→20:18)
[2020-04-01 05:53] LABS: Lactic Acid 6.4 mmol/L (0.5-2.2)
--- NOTE | 2020-04-01 06:48 | OP ---
DATE OF PROCEDURE: 03/31/2020 PREOPERATIVE DIAGNOSIS: Right hydropneumothorax. POSTOPERATIVE DIAGNOSIS: Right hydropneumothorax. PROCEDURE: Right tube thoracostomy. ANESTHESIA: 1% lidocaine with epi. DESCRIPTION OF PROCEDURE: After prepping and draping the right chest, 1% lidocaine with epi was used to infiltrate the skin. Incision was made. Tunnel was created. Chest was entered with a clamp, and rust-colored thin fluid was removed. A 32 straight chest tube was then advanced without difficulty, and about 1250 mL of fluid was removed, and the patient demonstrated rather large air leak. Fluid was sent for Gram stain and culture. Tube was secured to the skin. Dressing was applied. Job ID: [id number]
--- NOTE | 2020-04-01 06:53 | PDOC.FM ---
- Subjective Subjective: NAEO. Patient is resting comfortably in bed. He is able to state that is not having trouble breathing. Does not endorse pain. Per nursing, no major concerns at this time. - Objective MAR Reviewed: Yes Vital Signs & Weight: Vital Signs (12 hours) Temp 04/01/20 03:35 97.0 F L 03/31/20 23:20 96.6 F L Weight Weight 75.795 kg Most Recent Monitor Data Heart Rate from ECG 88 NIBP 98/72 NIBP BP-Mean 80 Respiration from ECG 25 SpO2 90 I&O: 03/30/20 03/31/20 04/01/20 06:59 06:59 06:59 Intake Total 193 Output Total 175 Balance 18 Result Diagrams: 04/02/20 13:12 04/02/20 13:12 Phys Exam - Physical Examination Constitutional: NAD HEENT: moist MMs Neck: supple Resp: R chest tube in place, rhochi on R; clear breath sounds on left Cardiovascular: RRR, no significant murmur, no rub Gastrointestinal: soft, non-tender, no distention midline wound -open with granulated tissue, possible exposed omentum decreased bowel sounds Musculoskeletal: no edema Neurological: non-focal, moves all 4 limbs Deviation from normal: Axox1 this AM, able to follow commands, answer yes/no questions Skin: no rash, normal turgor, cap refill <2 seconds Dx/Plan (1) Hydropneumothorax Code(s): J94.8 - OTHER SPECIFIED PLEURAL CONDITIONS Status: Acute (2) Abdominal wall dehiscence Code(s): T81.30XA - DISRUPTION OF WOUND, UNSPECIFIED, INITIAL ENCOUNTER Status : Acute (3) CKD (chronic kidney disease) Code(s): N18.9 - CHRONIC KIDNEY DISEASE, UNSPECIFIED Status: Acute (4) LENIN (acute kidney injury) Code(s): N17.9 - ACUTE KIDNEY FAILURE, UNSPECIFIED Status: Acute (5) Afib Code(s): I48.91 - UNSPECIFIED ATRIAL FIBRILLATION Status: Acute (6) Small bowel obstruction Code(s): K56.609 - UNSP INTESTNL OBST, UNSP TO PARTIAL VERSUS COMPLETE OBST Status: Acute (7) DM type 2 (diabetes mellitus, type 2) Status: Chronic Qualifiers: Diabetes mellitus mcfp insulin use: without terminal operator use Diabetes mellitus complication status: with unspecified complications (8) Dyslipidemia Code(s): E78.5 - HYPERLIPIDEMIA, UNSPECIFIED Status: Chronic (9) H/O prostate cancer Code(s): Z85.46 - PERSONAL HISTORY OF MALIGNANT NEOPLASM OF PROSTATE Status: Chronic (10) HTN (hypertension) Code(s): I10 - ESSENTIAL (PRIMARY) HYPERTENSION Status: Chronic Qualifiers: Hypertension type: essential hypertension Qualified Code(s): I10 - Essential (primary) hypertension - Plan Plan: Sepsis 2/2 Right 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 - CV surg Dr. Hyman consulted from the ER. Appreciate recommendations. R Chest tube placed at the bedside - fluid sent for gram stain and culture. - Pulm, Dr. Crowe consulted, appreciate recommendations. Patient currently satting 90% on 3L NC. Will continue to closely monitor. - Lactic acid 8.9 on admission -> 6.4. Will continue gentle fluids and monitor closely. 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 Will likely need wound vac placed. - Gen surg, Dr. Cole consulted, appreciate recommendations. UTI UA with bacteria 4+, leukocytes. Negative nitrites. - Pending urine cx - Abx as above LENIN on CKD - Monitor for resolution with fluids HFrEF, EF 25-30% w/ AICD - Monitor for fluid overload with administration of bolus fluids for sepsis - Hold coreg for BP's - Unsure if entresto was restarted at [facility]. Will get records today. HLD - Continue home meds Prediabetes - Start sliding scale insulin, A1c pending BPH - Continue tamsulosin, will hold avodart for now due to low/nml BPs Dispo: pending specialist recommendations, continue abx Code: Full - ED discussed with family Diet: NPO Case discussed with Dr. Pearson Addendum - Attending - Attending Attestation Date/Time: 04/02/201924 I personally evaluated the patient and discussed the management with Dr. Orr on 04/01/20 I agree with the History, Examination, Assessment and Plan documented above with any addition or exceptions noted below- Patient without complaints. Afebrile VSS. A/P: 1) Hydropneumothorax s/p chest tube placement- continue drainage as per CV surgery, 2) Empyema- continue IV abx; cultures pending. 3) Incisional dehiscence; fascia intact; continue wound vac.
[2020-04-01 07:48] LABS: Hemoglobin A1c 6.4 % (4.0-6.0)
[2020-04-01 08:50] LABS: Hemoglobin 14.3 g/dL (14.0-18.0); Mean Corpuscular HGB CONC 30.9 g/dL (32.0-36.0); Mean Corpuscular Hemoglobin 28.8 pg (27.0-31.0); Mean Corpuscular Volume 93.1 fL (78.0-98.0); Mean Platelet Volume 11.3 fL (7.4-10.4); Platelet Count 128 thou/uL (130-400); RBC Distribution Width 16.2 % (11.5-14.5); Red Blood Cell (RBC) Count 4.98 mill/uL (4.70-6.10)
[2020-04-01 08:59] LABS: Anion Gap 23 mmol/L (10-20); BUN (Urea Nitrogen) 61 mg/dL (8.4-25.7); Calc. Creatinine Clearance 37 mL/min (70-130); Calcium 8.1 mg/dL (7.8-10.44); Carbon Dioxide 14 mmol/L (23-31); Chloride 104 mmol/L (98-107); Estimated GFR-MDRD 51; Glucose 247 mg/dL (83-110); Potassium 4.8 mmol/L (3.5-5.1); Sodium 136 mmol/L (136-145)
[2020-04-01] MEDS ORDERED: Famotidine/PF 20 mg/2ml Vial SLOW IVP SCH (09:00)
[2020-04-01] MEDS ORDERED: Enoxaparin Sodium 40 MG/0.4 ML SYRINGE SC SCH (09:00)
[2020-04-01 09:13] LABS: Band 12 % (5-11); Burr Cells SLIGHT = 2-5 cells (100X) (0-1/hpf); Crenated RBC SLIGHT = 1-5 cells (100X) (None Seen); Lymphocytes 5 % (21-51); MDiff Complete? YES; Monocytes 3 % (0-10); Neutrophil 80 % (42-75); Platelet Morphology Comment Appears Decreased; Polychromasia SLIGHT = 2-3 cells (100X) (0-2/hpf)
[2020-04-01 09:19] LABS: Syphilis Antibody Nonreactive (Nonreactive); Syphilis Antibody Index 0.06 S/CO (<1.00 Non-Reactive)
[2020-04-01] MEDS: Tamsulosin HCl 0.4 MG CAP PO SCH (11:19)
[2020-04-01] MEDS: Aspirin 325 MG TAB PO SCH (11:19)
[2020-04-01] MEDS: Cefepime 2 GM in Sodium Chloride 0.9% 100 ML IVPB SCH ×2 (11:20→20:14)
[2020-04-01] MEDS: Pantoprazole 40 MG VIAL IVP SCH (11:23)
--- NOTE | 2020-04-01 11:47 | RAD ---
EXAM: Single view of the chest HISTORY: Right pneumothorax status post chest tube COMPARISON: 03/31/2020 FINDINGS: Single view of the chest shows an enlarged but stable cardiomediastinal silhouette. The pa cemaker is unchanged in position. There is a stable moderate right pneumothorax. A right-sided chest tube is seen. The bones are unremarkable. IMPRESSION: Stable right pneumothorax
[2020-04-01 12:08] LABS: Lactic Acid 4.9 mmol/L (0.5-2.2)
[2020-04-01 15:27] LABS: Lactic Acid 4.2 mmol/L (0.5-2.2)
--- NOTE | 2020-04-01 16:19 | CON ---
DATE OF CONSULTATION: Mr. Sliva is an 84-year-old gentleman, who was just recently discharged from the hospital following a laparotomy for a hernia and small-bowel resection. He was apparently brought to the ER with a pulse of 105, respirations 36, blood pressure 107/84 with presumed sepsis, somewhat encephalopathic. CT of chest and abdomen done showed a large right-sided hydropneumothorax with infiltrate. His CT of abdomen, otherwise, did not show any obvious masses, some anasarca. The patient has a complicated medical history, who was discharged actually on 03/05, today is 04/01. He is from the assisted right now. PAST MEDICAL HISTORY: Pertinent otherwise for congestive heart failure, EF 25%, chronic renal failure, severe deconditioning, underlying COPD, and prostate cancer. PREVIOUS SURGERIES: Include cataract surgery, prostate, recent pacemaker, and recent lap. SOCIAL HISTORY: Former smoker, quit many years ago. No alcohol or drug abuse. HOME MEDICATIONS: Include: 1. Flomax 0.4. 2. Tylenol. 3. Protonix 40. 4. DuoNeb. 5. MiraLax. 6. Avodart. 7. Aspirin. ALLERGIES: PENICILLIN. REVIEW OF SYSTEMS: Otherwise, negative. PHYSICAL EXAMINATION: GENERAL: He is a cachectic-looking gentleman. VITAL SIGNS: Temperature 97, sats 95% on room air, blood pressure 105/75. CHEST: Decreased breath sounds without any wheezing. CARDIAC: Normal S1, S2. No gallops. ABDOMEN: Soft. LABORATORY DATA: Creatinine 1.5. White count 20,000, platelet count is normal. ASSESSMENT AND PLAN: 1. Right hydropneumothorax. 2. Right lower lobe pneumonia. 3. Congestive heart failure. 4. Prostate cancer. 5. Severe deconditioning. PLAN: I agree with present antibiotics. I would discontinue vancomycin. Serial exam, nutrition, PT. Consultation note, 70 minutes, 50% direct patient care. Job ID: [id number]
[2020-04-01] MEDS ORDERED: Vancomycin 1 GM in Premix Bag 1 BAG IVPB SCH (21:00)
[2020-04-01] MEDS ORDERED: Prevnar 13-Val Conj/PF 0.5 ML SYRINGE IM ONE (21:00)
[2020-04-01] MEDS ORDERED: Dutasteride 0.5 MG CAP PO SCH (21:00)
--- NOTE | 2020-04-02 02:11 | CON ---
DATE OF CONSULTATION: 04/01/2020 REASON FOR CONSULT: Abdominal wound infection. ATTENDING SURGEON: Dr. Cole. HISTORY OF PRESENT ILLNESS: This is an 84-year-old gentleman with a significant past medical history. The patient had an exploratory laparotomy with segmental small bowel resection and with primary anastomosis on 02/26/2020, by Dr. Cole. The patient was sent from [facility] for possible sepsis from his abdominal wound. The patient was started on cefepime and vancomycin in the emergency room. The patient was also given 3 L of normal saline in the ER. The patient had a right-sided chest tube placed by Dr. Hyman due to a hydropneumothorax. The patient is currently resting, in no distress. Denies any pain. ALLERGIES: PENICILLIN. HOME MEDICATIONS: 1. Aspirin 300 mg p.o. daily. 2. Avodart 0.5 mg p.o. h.s. 3. MiraLAX 17 g p.o. daily. 4. Flomax 0.4 mg p.o. daily. 5. Acetaminophen 1000 mg p.o. q.i.d. 6. DuoNeb 3 mL neb q.4 hours as needed. 7. Protonix 40 mg p.o. daily. PAST MEDICAL HISTORY: Heart failure with preserved ejection fraction, AICD, chronic kidney disease, hypertension, hyperlipidemia, prostate cancer. PAST SURGICAL HISTORY: Exploratory laparotomy and small bowel resection with primary anastomosis. SOCIAL HISTORY: Currently, lives at [facility]. Denies tobacco use. Denies drug use. Denies alcohol use. REVIEW OF SYSTEMS: Unable to obtain due to altered mental status. OBJECTIVE: VITAL SIGNS: Blood pressure 109/79, respirations 22, SpO2 100% on room air, pulse 101, temperature 97.5. GENERAL: Elderly male, awake, alert, in no distress. HEENT: Atraumatic, normocephalic. NECK: Normal range of motion. No JVD. CARDIAC: Mildly tachycardic, regular rhythm. No murmurs. LUNGS: Clear, bilateral. No wheezing, rales, or rhonchi. Chest tube to right chest. ABDOMEN: Soft, nontender, good granulous tissue. No signs of purulent drainage. NEUROLOGIC: No focal deficits. LABORATORY DATA: WBC 22.0, RBC 4.98, hemoglobin 14.3, hematocrit 46.4, platelets 128. Sodium 136, potassium 4.8, chloride 104, BUN 61, creatinine 1.59, estimated GFR 51, glucose 171. Lactate 4.9, improved to 4.2. Calcium 8.1. IgG/IgM antibody nonreactive. Chest x-ray; impression: Stable right pneumothorax. IMPRESSION: Abdominal wall wound, status post exploratory laparotomy on 02/25 with good granulous tissue. PLAN: Wound Care to evaluate and treat and place the wound VAC to abdominal wound. We will continue to follow the patient. Thank you for . Let us know if you have any questions. The patient was examined by Dr. Cole. Plan of care was made by Dr. Cole. Job ID: [id number]
[2020-04-02] MEDS: Clindamycin/D5W 600 MG in Premix Bag 1 BAG IVPB SCH ×3 (03:33→19:32)
[2020-04-02] MEDS: Acetaminophen 500 MG TAB PO SCH ×2 (03:34→16:34)
[2020-04-02] MEDS ORDERED: Fentanyl 250 MCG/5 ML VIAL ONE (06:49)
[2020-04-02] MEDS ORDERED: Sodium Chloride 0.9% 20 ML ONE (08:01)
[2020-04-02] MEDS ORDERED: Norepinephrine 4 MG/4 ML VIAL ONE (08:07)
--- NOTE | 2020-04-02 08:14 | PDOC.FM ---
- Subjective Subjective: NAEO. Patient now back in his room after procedure with CV surg. Patient intubated. No concerns per nursing. - Objective MAR Reviewed: Yes Vital Signs & Weight: Vital Signs (12 hours) Temp 04/02/20 07:34 97.4 F L 04/02/20 04:07 97.0 F L 04/01/20 23:38 97.0 F L Weight Admit Weight 75.432 kg Weight 76.158 kg Most Recent Monitor Data Heart Rate from ECG 101 NIBP 100/77 NIBP BP-Mean 84 Respiration from ECG 29 SpO2 100 I&O: 04/01/20 04/02/20 04/03/20 06:59 06:59 06:59 Intake Total 193 1848 Output Total 175 250 Balance 18 1598 Result Diagrams: 04/02/20 13:12 04/02/20 13:12 Phys Exam - Physical Examination Constitutional: NAD intubated, sedated HEENT: moist MMs good lung sounds on left; minimal on right Cardiovascular: RRR, no significant murmur, no rub R chest tube in place Gastrointestinal: soft, no distention wound covered Skin: no rash, normal turgor, cap refill <2 seconds Dx/Plan (1) Hydropneumothorax Code(s): J94.8 - OTHER SPECIFIED PLEURAL CONDITIONS Status: Acute (2) Abdominal wall dehiscence Code(s): T81.30XA - DISRUPTION OF WOUND, UNSPECIFIED, INITIAL ENCOUNTER Status : Acute (3) CKD (chronic kidney disease) Code(s): N18.9 - CHRONIC KIDNEY DISEASE, UNSPECIFIED Status: Acute (4) LENIN (acute kidney injury) Code(s): N17.9 - ACUTE KIDNEY FAILURE, UNSPECIFIED Status: Acute (5) Afib Code(s): I48.91 - UNSPECIFIED ATRIAL FIBRILLATION Status: Acute (6) Small bowel obstruction Code(s): K56.609 - UNSP INTESTNL OBST, UNSP TO PARTIAL VERSUS COMPLETE OBST Status: Acute (7) DM type 2 (diabetes mellitus, type 2) Status: Chronic Qualifiers: Diabetes mellitus retirement insulin use: without retirement use Diabetes mellitus complication status: with unspecified complications (8) Dyslipidemia Code(s): E78.5 - HYPERLIPIDEMIA, UNSPECIFIED Status: Chronic (9) H/O prostate cancer Code(s): Z85.46 - PERSONAL HISTORY OF MALIGNANT NEOPLASM OF PROSTATE Status: Chronic (10) HTN (hypertension) Code(s): I10 - ESSENTIAL (PRIMARY) HYPERTENSION Status: Chronic Qualifiers: Hypertension type: essential hypertension Qualified Code(s): I10 - Essential (primary) hypertension - Plan Plan: Sepsis 2/2 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 - CV surg Dr. Hyman consulted from the ER. Appreciate recommendations. R Chest tube placed at the bedside - fluid sent for gram stain and culture. Patient taken back for procedure this AM, R lobectomy. - Pulm, Dr. Crowe consulted, appreciate recommendations. Patient currently on mechanical ventilation, will ween as tolerated. Fentanyl, propofol for sedation. BP support. - Lactic acid 8.9 on admission -> 6.4. Will continue gentle fluids and monitor closely. - Palliative care on board, appreciate help. 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 Wound vac to be placed. Will need f/u outpatient. - Gen surg, Dr. Cole consulted, appreciate recommendations. UTI UA with bacteria 4+, leukocytes. Negative nitrites. - Urine cx: E coli and proteus sensitive to cefepime. Will continue tx. LENIN on CKD - Monitor for resolution with fluids HFrEF, EF 25-30% w/ AICD - Monitor for fluid overload with administration of bolus fluids for sepsis - Hold coreg for BP's HLD - Continue home meds Prediabetes - Start sliding scale insulin, A1c 6.4 BPH - Continue tamsulosin, will hold avodart for now due to low/nml BPs Dispo: pending specialist recommendations, continue abx Code: Full - ED discussed with family Diet: NPO Case discussed with Dr. Pearson Addendum - Attending - Attending Attestation Date/Time: 04/02/201927 I personally evaluated the patient and discussed the management with Dr. Orr. I agree with the History, Examination, Assessment and Plan documented above with any addition or exceptions noted below - Patient intubated. Afebrile VSS. A /P: 1) Empyema s/p RLL lobectomy - continue vent support; continue abx. Pleural culture negative to date. 2) UTI- urine culture with E coli and Proteus- sensitive to current abx.
--- NOTE | 2020-04-02 08:26 | RAD ---
PORTABLE CHEST: DATE: 04/02/2020. PROVIDED CLINICAL HISTORY: Pneumothorax. FINDINGS: Comparison 04/01/2020. Right-sided pneumothorax with associated chest tube is redemonstrated. There is a slightly more prom inent appearance to the pneumothorax than on prior. There is no definite mediastinal shift. Heart r emains enlarged. Left subclavian cardiac pacing device is redemonstrated. The left lung appears barbara ar. There is no evidence for pleural fluid. IMPRESSION: Persistent and slightly more conspicuous right-sided pneumothorax. POS: CALE
[2020-04-02] MEDS ORDERED: Sodium Bicarbonate 2.5 MEQ/5 ML VIAL ONE (09:21)
[2020-04-02] MEDS ORDERED: Sodium Bicarb 50 MEQ/50 ML VIAL ONE (09:22)
[2020-04-02] MEDS ORDERED: Propofol 1,000 MG/100 ML VIAL IV ONE (11:07)
[2020-04-02] MEDS ORDERED: Ventilator Sedation Protocol 1 EACH FS SCH (11:13)
[2020-04-02 11:40] LABS: Actual Bicarbonate (HCO3a) 21.1 mEq/L (22-28); Analyzer IN Cardio OR; Base Excess (BEa) -1.8 mEq/L (-2.0 to +3.0); CO2 Tension 31.2 mmHg (35.0-45.0); Carboxyhemoglobin (COHb) 0.7 gm% (0.0-3.0); O2 Tension (PaO2), arterial 589.5 mmHg (> 60.0); Potassium - ABG Lab 4.82 mmol/L (3.70-5.30); pH, Arterial 7.45 (7.35-7.45)
[2020-04-02 11:41] LABS: Puncture Site ALINE
--- NOTE | 2020-04-02 11:43 | RAD ---
EXAM: Single view of the chest HISTORY: Status post thoracotomy COMPARISON: 04/02/2020 FINDINGS: Single view of the chest shows an enlarged but stable cardiomediastinal silhouette. The en dotracheal tube is seen in good position with its tip between the clavicles. A right subclavian central venous catheter seen with its tip in the superior vena cava. 2 right-sided chest tubes are se en. The previously seen pneumothorax has significantly decreased in size with a small pneumothorax seen along the midportion of the lung and inferiorly. The pacemaker is unchanged in position. There i s no evidence of consolidation, mass, or pleural effusion. The bones are unremarkable. IMPRESSION: Status post thoracotomy with appropriate position of lines and tubes and decreased size o f pneumothorax.
[2020-04-02] MEDS ORDERED: Fentanyl 100 MCG/2 ML VIAL ONE ×3 (11:44→12:52)
[2020-04-02] MEDS ORDERED: Lorazepam 2 MG/ML VIAL SLOW IVP PRN (12:41)
[2020-04-02] MEDS ORDERED: Fentanyl BOLUS 250 ML IVPB PRN (12:41)
[2020-04-02] MEDS ORDERED: Morphine 2 MG/ML SYRINGE SLOW IVP PRN (12:41)
[2020-04-02] MEDS ORDERED: Propofol 1,000 MG/100 ML VIAL IV PRN (12:41)
[2020-04-02] MEDS ORDERED: Propofol BOLUS 1,000 MG/100 ML VIAL IV PRN (12:41)
[2020-04-02] MEDS ORDERED: fentaNYL Citrate/PF 2,000 MCG in Sodium Chloride 0.9% 60 ML IV SCH (12:41)
--- NOTE | 2020-04-02 13:04 | PRG ---
DATE OF SERVICE: 04/02/2020 SUBJECTIVE: Status post thoracotomy, lower lobe lobectomy for necrotizing pneumonia. Postop x-ray still shows what appears to be a small pneumothorax, but the lung has much improved. He is on 100%, rate of 20, pO2 is 589, pH 7.45, his saturations 100%. Glucose 161. OBJECTIVE: VITAL SIGNS: Blood pressure __110\76 CHEST: Reveals no wheezing. CARDIAC: Normal S1 and S2. No gallops. ABDOMEN: No masses. ASSESSMENT AND PLAN: Respiratory failure, status post thoracotomy for necrotizing pneumonia causing hydropneumothorax. We will continue clindamycin, Maxipime. Supportive care, PT. We will wean in the next 24 to 48 hours. One-half hour of critical care time. Job ID: [id number] MTDD
[2020-04-02 13:44] LABS: Anion Gap 17 mmol/L (10-20); BUN (Urea Nitrogen) 62 mg/dL (8.4-25.7); Calc. Creatinine Clearance 45 mL/min (70-130); Carbon Dioxide 19 mmol/L (23-31); Chloride 109 mmol/L (98-107); Estimated GFR-MDRD 63; Glucose 184 mg/dL (83-110); Potassium 5.1 mmol/L (3.5-5.1); Sodium 140 mmol/L (136-145)
[2020-04-02 14:06] LABS: Band 11 % (5-11); Hemoglobin 13.8 g/dL (14.0-18.0); Lymphocytes 7 % (21-51); MDiff Complete? YES; Mean Corpuscular HGB CONC 31.9 g/dL (32.0-36.0); Mean Corpuscular Hemoglobin 29.8 pg (27.0-31.0); Mean Corpuscular Volume 93.3 fL (78.0-98.0); Mean Platelet Volume 10.5 fL (7.4-10.4); Monocytes 1 % (0-10); Neutrophil 81 % (42-75); Platelet Count 207 thou/uL (130-400); Platelet Morphology Comment Appears Adequate; Polychromasia SLIGHT = 2-3 cells (100X) (0-2/hpf); RBC Distribution Width 15.9 % (11.5-14.5); Red Blood Cell (RBC) Count 4.62 mill/uL (4.70-6.10); Target Cells SLIGHT = 2-5 cells (100X) (0-1/hpf); Tear Drops SLIGHT = 2-5 cells (100X) (0-1/hpf)
[2020-04-02] MEDS: Cefepime 2 GM in Sodium Chloride 0.9% 100 ML IVPB SCH ×2 (14:42→19:33)
[2020-04-02] MEDS: Pantoprazole 40 MG VIAL IVP SCH (14:57)
[2020-04-02] MEDS ORDERED: Lidocaine 1% PF 5 ML VIAL ONE (15:26)
[2020-04-02] MEDS ORDERED: Succinylcholine Chloride 20 MG/ML 10 ml SYRINGE FS ONE (15:26)
[2020-04-02] MEDS ORDERED: Vecuronium 10 MG VIAL ONE (15:26)
[2020-04-02] MEDS ORDERED: PROPOFOL 200 MG/20 ML VIAL ONE (15:26)
[2020-04-02] MEDS: Tamsulosin HCl 0.4 MG CAP PO SCH (16:33)
[2020-04-02] MEDS: Aspirin 325 MG TAB PO SCH (16:33)
--- NOTE | 2020-04-02 16:57 | OP ---
DATE OF PROCEDURE: 04/02/2020 PREOPERATIVE DIAGNOSIS: Empyema with necrotic lung. POSTOPERATIVE DIAGNOSIS: Empyema with necrotic lung. PROCEDURES PERFORMED: 1. Fiberoptic bronchoscopy. 2. Right subclavian triple-lumen CVP. 3. Right thoracoscopy/thoracotomy with right lower lobectomy. ANESTHESIA: General. ESTIMATED BLOOD LOSS: 100. FINDINGS: The patient had necrosis of most of the lower lobe except for small portion of the superior segment. There was lots of fibrinous debris in the chest cavity. DESCRIPTION OF PROCEDURE: After adequate anesthesia had been obtained, the double-lumen tube was placed into the trachea and I performed fiberoptic bronchoscopy, which revealed patent segments to the right upper, middle and lower lobe with no endobronchial lesions, and similar findings on the left upper and lower lobe. Following this, a right subclavian triple-lumen CVP was placed and the patient was placed in the left lateral thoracotomy position after placement of a right femoral arterial line with Seldinger technique and a 5-Maori catheter. Small 5-mm port site was made. Chest was entered with the port and scope was inserted. There was a large amount of fibrinous debris on the lower lobe with no obvious injury to the esophagus. This could be examined in the posterior gutter. Following this, a right posterolateral muscle sparing thoracotomy was performed through about the sixth intercostal space. Retractors were placed, following which the lung was examined, and at that point, it was felt that salvage of the lower lobe was not possible. The inferior pulmonary ligament was mobilized and the fissure was completely mobilized with the Bovie sifter and miller. Vascular stapler was used to staple the pulmonary artery branches in 2 separate firings to the lower lobe and then a single firing for the inferior pulmonary vein. Bronchus was stapled with 4.5-mm jael and it was air tight to 30 cm of water. Two chest tubes were then placed, following which the chest was irrigated with about 4 L of irrigation until clear. Following this, the ribs were reapproximated with a pair of double-stranded catgut suture. Muscle layers, which had been preserved, were loosely reapproximated and then the skin was closed. The patient tolerated the procedure relatively well, being somewhat acidotic at the beginning of the procedure and requiring Levophed for hypotension. Job ID: [id number]
--- NOTE | 2020-04-02 23:11 | PRG ---
DATE OF SERVICE: 04/02/2020 SUBJECTIVE: The patient was seen during evening rounds on the critical care unit. The patient is currently sedated and on full mechanical ventilation. The patient had a right thoracoscopy/thoracotomy with right lower lobectomy for an empyema with necrotic lung by Dr. Hyman earlier today. The patient does have a wound VAC in place to his midline abdominal incision and is working appropriately. PLAN: Continue to have Wound Care manage abdominal VAC or his abdominal wound. Job ID: [id number]
[2020-04-02] MEDS: Lactated Ringer's 1,000 ML IV SCH (23:56)
[2020-04-03] MEDS: Clindamycin/D5W 600 MG in Premix Bag 1 BAG IVPB SCH ×3 (02:15→20:18)
[2020-04-03] MEDS: Lactated Ringer's 1,000 ML IV SCH ×2 (02:17→09:41)
[2020-04-03] MEDS: Norepinephrine 8 MG/0.9% NS 250 ML IVPB PRN ×2 (03:00→20:19)
[2020-04-03 04:54] LABS: Band 19 % (5-11); Hemoglobin 13.1 g/dL (14.0-18.0); Lymphocytes 3 % (21-51); MDiff Complete? YES; Mean Corpuscular HGB CONC 32.2 g/dL (32.0-36.0); Mean Corpuscular Volume 92.9 fL (78.0-98.0); Mean Platelet Volume 11.3 fL (7.4-10.4); Metamyelocyte 1 % (0-0); Monocytes 2 % (0-10); Neutrophil 75 % (42-75); Platelet Count 202 thou/uL (130-400); Platelet Morphology Comment Appears Adequate; RBC Distribution Width 16.1 % (11.5-14.5); Red Blood Cell (RBC) Count 4.36 mill/uL (4.70-6.10); White Blood Cell (WBC) Count 17.7 thou/uL (4.8-10.8)
--- NOTE | 2020-04-03 06:42 | PDOC.FM ---
- Subjective Subjective: NAEO. No concerns per nursing. Patient remains ventilated and sedated. Patient also getting levophed for BP support. - Objective MAR Reviewed: Yes Vital Signs & Weight: Vital Signs (12 hours) Temp Pulse Resp BP Pulse Ox 04/03/20 06:00 14 04/03/20 04:00 14 04/03/20 03:00 99.2 F 04/03/20 02:24 81 81/63 L 04/03/20 02:00 14 04/03/20 00:00 16 04/02/20 23:00 99.0 F 04/02/20 22:29 80 92/72 04/02/20 22:00 19 04/02/20 20:00 16 94 L 04/02/20 19:00 97.8 F 04/02/20 18:56 77 101/73 Weight Admit Weight 75.432 kg Weight 85.6 kg Most Recent Monitor Data Heart Rate from ECG 79 NIBP 90/67 NIBP BP-Mean 74 Respiration from ECG 23 SpO2 100 I&O: 04/01/20 04/02/20 04/03/20 06:59 06:59 06:59 Intake Total 193 1848 1476.25 Output Total 175 250 630 Balance 18 1598 846.25 Result Diagrams: 04/03/20 03:19 04/03/20 07:52 Phys Exam - Physical Examination Constitutional: NAD HEENT: moist MMs clear breath sounds throughout, minimal in RLL; R chest tube Cardiovascular: RRR, no significant murmur, no rub Gastrointestinal: soft wound vac in place, midline Musculoskeletal: no edema Skin: no rash, normal turgor, cap refill <2 seconds Dx/Plan (1) Hydropneumothorax Code(s): J94.8 - OTHER SPECIFIED PLEURAL CONDITIONS Status: Acute (2) Abdominal wall dehiscence Code(s): T81.30XA - DISRUPTION OF WOUND, UNSPECIFIED, INITIAL ENCOUNTER Status : Acute (3) CKD (chronic kidney disease) Code(s): N18.9 - CHRONIC KIDNEY DISEASE, UNSPECIFIED Status: Acute (4) LENIN (acute kidney injury) Code(s): N17.9 - ACUTE KIDNEY FAILURE, UNSPECIFIED Status: Acute (5) Afib Code(s): I48.91 - UNSPECIFIED ATRIAL FIBRILLATION Status: Acute (6) Small bowel obstruction Code(s): K56.609 - UNSP INTESTNL OBST, UNSP TO PARTIAL VERSUS COMPLETE OBST Status: Acute (7) DM type 2 (diabetes mellitus, type 2) Status: Chronic Qualifiers: Diabetes mellitus long chain beamer insulin use: without long chain beamer use Diabetes mellitus complication status: with unspecified complications (8) Dyslipidemia Code(s): E78.5 - HYPERLIPIDEMIA, UNSPECIFIED Status: Chronic (9) H/O prostate cancer Code(s): Z85.46 - PERSONAL HISTORY OF MALIGNANT NEOPLASM OF PROSTATE Status: Chronic (10) HTN (hypertension) Code(s): I10 - ESSENTIAL (PRIMARY) HYPERTENSION Status: Chronic Qualifiers: Hypertension type: essential hypertension Qualified Code(s): I10 - Essential (primary) hypertension - Plan Plan: Sepsis 2/2 Right hydropneumothorax complicated by necrotic PNA - Will continue abx coverage with cefepime and clindamycin. - CV surg Dr. Hyman consulted from the ER. Appreciate recommendations. R Chest tube placed at the bedside - fluid sent for gram stain and culture; NGTD. S/p RLL lobectomy for necrotizing PNA. - Pulm, Dr. Crowe consulted, appreciate recommendations. Patient currently on mechanical ventilation, plan to ween likely later this morning. Will ween pressors as tolerated. - Palliative care on board, appreciate help. 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 Wound vac in place. Will need f/u outpatient. - Gen surg, Dr. Cole consulted, appreciate recommendations. UTI UA with bacteria 4+, leukocytes. Negative nitrites. - Urine cx: E coli and proteus sensitive to cefepime. Will continue tx. LENIN on CKD - Monitor for resolution with fluids HFrEF, EF 25-30% w/ AICD - Monitor for fluid overload with administration of bolus fluids for sepsis - Hold coreg for BP's HLD - Continue home meds Prediabetes - Start sliding scale insulin, A1c 6.4 BPH - hold meds due to low BPs, moran in place Dispo: pending specialist recommendations, continue abx Code: Full - ED discussed with family; Palliative care to assist with goals of care. Case discussed with Dr. Pearson Addendum - Attending - Attending Attestation Date/Time: 04/03/20 [id number] I personally evaluated the patient and discussed the management with Dr. Orr I agree with the History, Examination, Assessment and Plan documented above with any addition or exceptions noted below - Patient without complaints; extubated earlier this morning. Afebrile VSS. A/P: 1) Right necrotizing pneumonia- continue chest tube as per CV surgery; continue current antibiotics. Cultures with gram positive nicki, ID pending. 2) Abd wall dehiscence- continue wound vac. 3) Dysphagia- failed swallow study; will repeat tomorrow and discuss with family if fails again.
--- NOTE | 2020-04-03 07:52 | RAD ---
XR Chest 1 View Portable History: Ventilated patient Comparison: Radiograph prior day Findings: Endotracheal tube tip above the jaylin 4.5 cm. Heart size mildly enlarged. Right-sided thoracostomy tubes are similar with tips at the level of the posterior fourth rib and mid hemithorax. Improving right basilar pneumothorax. Small volume subcutaneous emphysema. Cardiac lead is similar. Subclavian central venous catheter is similar. Impression: Improving right lateral and basilar pneumothorax.
[2020-04-03] MEDS ORDERED: DC Sedation Protocol FS ONE (08:24)
[2020-04-03 08:40] LABS: Chloride 109 mmol/L (98-107); Potassium 5.4 mmol/L (3.5-5.1); Sodium 142 mmol/L (136-145)
[2020-04-03 08:41] LABS: Calcium 8.2 mg/dL (7.8-10.44); Glucose 150 mg/dL (83-110)
[2020-04-03 08:43] LABS: Anion Gap 14 mmol/L (10-20); Carbon Dioxide 24 mmol/L (23-31)
[2020-04-03 08:44] LABS: Calc. Creatinine Clearance 41 mL/min (70-130); Estimated GFR-MDRD 49
[2020-04-03 08:45] LABS: BUN (Urea Nitrogen) 69 mg/dL (8.4-25.7)
--- NOTE | 2020-04-03 08:54 | PRG ---
DATE OF SERVICE: 04/03/2020 SUBJECTIVE: This morning, he is intubated in the vent, on pain medicine. LABORATORY DATA: His creatinine is 1.3, BUN 62, white count 17,000. X-ray looks much improved. Slight left shift. OBJECTIVE: VITAL SIGNS: A-line blood pressure 120/80, pulse 97, respirations 20. CHEST: Decreased breath sounds without any wheezing. CARDIAC: Normal S1 and S2. No gallops. ABDOMEN: No masses. ASSESSMENT: Status post thoracotomy for necrotizing pneumonia, bronchopleural fistula, persistent air leak, severe deconditioning, previous lap. He is going to be extubated today. Continue supportive care, PT, and nutrition as per Surgery. Question whether he has a feeding tube. One-half hour of critical care time. Job ID: [id number]
[2020-04-03] MEDS: Cefepime 2 GM in Sodium Chloride 0.9% 100 ML IVPB SCH ×2 (09:00→21:14)
[2020-04-03] MEDS: Pantoprazole 40 MG VIAL IVP SCH (09:30)
[2020-04-03] MEDS ORDERED: Fentanyl 100 MCG/2 ML VIAL SLOW IVP PRN (11:37)
[2020-04-03] MEDS ORDERED: Enoxaparin Sodium 40 MG/0.4 ML SYRINGE SC SCH (12:00)
[2020-04-04] MEDS: Lactated Ringer's 1,000 ML IV SCH ×3 (01:33→20:00)
[2020-04-04] MEDS: Clindamycin/D5W 600 MG in Premix Bag 1 BAG IVPB SCH ×3 (03:16→17:55)
[2020-04-04 05:51] LABS: Anion Gap 19 mmol/L (10-20); BUN (Urea Nitrogen) 79 mg/dL (8.4-25.7); Calc. Creatinine Clearance 36 mL/min (70-130); Calcium 8.6 mg/dL (7.8-10.44); Carbon Dioxide 21 mmol/L (23-31); Chloride 110 mmol/L (98-107); Estimated GFR-MDRD 43; Glucose 131 mg/dL (83-110); Potassium 5.5 mmol/L (3.5-5.1); Sodium 144 mmol/L (136-145)
[2020-04-04 06:13] LABS: Anisocytosis SLIGHT = 6-15 cells (100X) (0-5/hpf); Band 22 % (5-11); Burr Cells SLIGHT = 2-5 cells (100X) (0-1/hpf); Hemoglobin 13.7 g/dL (14.0-18.0); Hypochromia SLIGHT = 6-15 cells (100X) (0-5/hpf); Lymphocytes 6 % (21-51); MDiff Complete? YES; Mean Corpuscular HGB CONC 30.9 g/dL (32.0-36.0); Mean Corpuscular Volume 93.9 fL (78.0-98.0); Mean Platelet Volume 10.8 fL (7.4-10.4); Metamyelocyte 2 % (0-0); Monocytes 2 % (0-10); Neutrophil 68 % (42-75); Platelet Count 214 thou/uL (130-400); Platelet Morphology Comment Appears Adequate; Polychromasia SLIGHT = 2-3 cells (100X) (0-2/hpf); RBC Distribution Width 16.6 % (11.5-14.5); Red Blood Cell (RBC) Count 4.71 mill/uL (4.70-6.10); Target Cells SLIGHT = 2-5 cells (100X) (0-1/hpf)
--- NOTE | 2020-04-04 06:57 | PDOC.FM ---
- Subjective Subjective: No significant overnight events. Patient's speech is muffled and difficult to interpret. He was able to tell me this morning that he feels "better". Patient still on levophed and LR's. He failed speech therapy yesterday. He is not currently taking anything by mouth. - Objective MAR Reviewed: Yes Vital Signs & Weight: Vital Signs (12 hours) Temp Pulse Ox 04/04/20 04:00 97.2 F L 04/04/20 00:00 97.2 F L 04/03/20 20:00 100 04/03/20 19:00 97.5 F L Weight Admit Weight 75.432 kg Weight 84.4 kg Most Recent Monitor Data Heart Rate from ECG 94 NIBP 109/70 NIBP BP-Mean 83 Respiration from ECG 33 SpO2 96 I&O: 04/02/20 04/03/20 04/04/20 06:59 06:59 06:59 Intake Total 1848 1533.35 2272 Output Total 334 006 6382 Balance 1598 903.35 1257 Result Diagrams: 04/04/20 05:20 04/04/20 05:20 Phys Exam - Physical Examination Constitutional: NAD Cachectic appearing Cataracts on bilateral eyes Respiratory: no wheezing RLL lung with crackles, decreased breath sounds throughout No significant increase work of breathing, left sided chest tube in place Cardiovascular: RRR, no significant murmur Left arm with significant swelling compared to right Neurological: non-focal Deviation from normal: Unable to adequately assess mental status Deviation from normal: Poor turgor Dx/Plan (1) Necrotic pneumonia Code(s): J85.0 - GANGRENE AND NECROSIS OF LUNG Status: Acute (2) Pulmonary necrosis Code(s): J85.0 - GANGRENE AND NECROSIS OF LUNG Status: Acute (3) CKD (chronic kidney disease) Code(s): N18.9 - CHRONIC KIDNEY DISEASE, UNSPECIFIED Status: Acute (4) Hydropneumothorax Code(s): J94.8 - OTHER SPECIFIED PLEURAL CONDITIONS Status: Acute (5) LENIN (acute kidney injury) Code(s): N17.9 - ACUTE KIDNEY FAILURE, UNSPECIFIED Status: Acute (6) Afib Code(s): I48.91 - UNSPECIFIED ATRIAL FIBRILLATION Status: Acute (7) DM type 2 (diabetes mellitus, type 2) Status: Chronic Qualifiers: Diabetes mellitus shelter insulin use: without terminal gauger use Diabetes mellitus complication status: with unspecified complications (8) Dyslipidemia Code(s): E78.5 - HYPERLIPIDEMIA, UNSPECIFIED Status: Chronic (9) H/O prostate cancer Code(s): Z85.46 - PERSONAL HISTORY OF MALIGNANT NEOPLASM OF PROSTATE Status: Chronic (10) HTN (hypertension) Code(s): I10 - ESSENTIAL (PRIMARY) HYPERTENSION Status: Chronic Qualifiers: Hypertension type: essential hypertension Qualified Code(s): I10 - Essential (primary) hypertension - Plan Plan: Sepsis 2/2 Right hydropneumothorax complicated by necrotic PNA - Will continue abx coverage with cefepime and clindamycin. WBC count increasing along with bands. Based on culture results, the current antibiotic regimen should be sufficient. - CV surg Dr. Hyman consulted from the ER. Appreciate recommendations. R Chest tube in place. Cultures growing out gram positive rods. S/p RLL lobectomy for necrotizing PNA. Continue antibiotics. - Pulm, Dr. Crowe consulted, appreciate recommendations. Patient extubated yesterday. Will wean pressors as tolerated. - Palliative care on board, appreciate help. Palliative spoke with patient's daughter who desires to keep patient full code at this time. Will continue to address. 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 Wound vac in place. Will need f/u outpatient. - Gen surg, Dr. Cole consulted, appreciate recommendations. UTI - UA with bacteria 4+, leukocytes. Negative nitrites. - Urine cx: E coli and proteus sensitive to cefepime. Will continue tx. LENIN on CKD - Monitor for resolution with fluids - Mild decline today; BUN 79, Cr 1.82 - Will assess fluid status HFrEF, EF 25-30% w/ AICD - Monitor for fluid overload with administration of bolus fluids for sepsis - Hold coreg for BP's - CXR this AM pending HLD - Continue home meds Prediabetes - Start sliding scale insulin, A1c 6.4 BPH - hold meds due to low BPs, moran in place LENIN on CKD - Worsening Cr - Increase IVF, patient does appear overall volume down - Avoid nephrotoxic agents Dispo: pending specialist recommendations, continue abx Code: Full - ED discussed with family; Palliative care to assist with goals of care. As of yesterday, family still desires full code. Case discussed with Dr. Pearson Addendum - Attending - Attending Attestation Date/Time: 04/04/20 1212 I personally evaluated the patient and discussed the management with Dr. Peterson I agree with the History, Examination, Assessment and Plan documented above with any addition or exceptions noted below - Patient with some increased work of breathing. Afebrile VSS. A/P: 1) Right necrotizing pneumonia s/p lobectomy- continue current abx; cultures pending. 2) Acute hypoxic resp failure - now on BiPap; continue to monitor. 3) Dysphagia - failed swallow study; plan to repeat when off BiPap; may need PEG for terminal gauger nutrition. 4) Abd wound- continue wound vac.
--- NOTE | 2020-04-04 07:58 | RAD ---
SINGLE VIEW CHEST: Date: 04/04/2020 COMPARISON: 04/03/2020. HISTORY: Ventilated patient with respiratory failure. FINDINGS: Single view of the chest shows an enlarged but stable cardiomediastinal silhouette. The pacemaker, ce ntral venous catheter, and right chest are unchanged in position. The endotracheal tube has been barbie katy. There has been interval development of a right pleural effusion with atelectasis of the right jesus ng base. IMPRESSION: Interval development of right pleural effusion with atelectasis in the right lung base. POS: VIPULA
[2020-04-04] MEDS: Pantoprazole 40 MG VIAL IVP SCH (08:43)
[2020-04-04] MEDS: Cefepime 2 GM in Sodium Chloride 0.9% 100 ML IVPB SCH ×2 (08:43→19:40)
[2020-04-04] MEDS: Enoxaparin Sodium 40 MG/0.4 ML SYRINGE SC SCH (08:43)
--- NOTE | 2020-04-04 10:56 | PRG ---
DATE OF SERVICE: 04/04/2020 SUBJECTIVE: Mr. Silva is postop from a right lower lobe lobectomy for necrotizing pneumonia, bronchopleural fistula. He has a chest tube in place. I spoke with Dr. Moreno this morning. The patient has right middle lobe collapse on x-ray with corresponding atelectasis. He actually does not look as bad as I thought he was per report. I saw him yesterday and he does look better than when I saw him yesterday afternoon. OBJECTIVE: VITAL SIGNS: Temperature 98, pulse 70, blood pressure 113/55, O2 saturation 96% on 2 L. HEENT: Unremarkable. NECK: No adenopathy or JVD. LUNGS: Mid breath sound, right base. Scant air leak in the chest tube. Left side clear. ABDOMEN: Soft and nontender. EXTREMITIES: No edema. LABORATORY DATA: White blood cell count 32, hematocrit 44.2, and platelet count 214. Sodium 144, potassium 5.5, chloride 110, CO2 of 21, BUN 79, creatinine 1.8, glucose 131. X-ray was reviewed. ASSESSMENT: 1. Necrotizing pneumonia. 2. Right middle lobe collapse. PLAN: 1. Continue antibiotics. 2. Initiate DuoNeb with IPPB. If this fails, then he may require bronchoscopy and/or intubation. 3. Chest PT, right lower lobe. 4. Keep in ICU. 5. The patient has become somewhat hyperkalemic. Job ID: [id number]
[2020-04-04] MEDS: Albuterol Sulfate 2.5 mg/3 ml Neb NEB SCH ×2 (12:38→18:36)
--- NOTE | 2020-04-04 13:05 | EKG ---
Test Reason : Blood Pressure : / mmHG Vent. Rate : 105 BPM Atrial Rate : 105 BPM P-R Int : 136 ms QRS Dur : 104 ms QT Int : 366 ms P-R-T Axes : 013 -22 139 degrees QTc Int : 483 ms Sinus tachycardia with occasional Premature ventricular complexes Possible Left atrial enlargement Low voltage QRS Septal infarct , age undetermined Abnormal ECG Confirmed by SAMANTHA CROWELL DO ([id number]), editorial cartoonist LENA HERNANDEZ ([id number]) on 04/04/2020 1:04:57 PM Referred By: Confirmed By:SAMANTHA CROWELL DO
[2020-04-04] MEDS: Acetylcysteine 10% 100 MG/ML 30 ml Vial NEB SCH ×2 (15:17→18:36)
--- NOTE | 2020-04-04 19:01 | RAD ---
KUB: 04/04/20 PROVIDED CLINICAL HISTORY: Dobhoff tube placement. FINDINGS: Comparison is made with the chest radiograph performed earlier same date. Enteric catheter is noted w ith the tip overlying the left upper quadrant. Multiple metallic clips are again seen overlying the l eft upper quadrant. The abdominal bowel gas pattern is nonspecific. Bibasilar pleural parenchymal opa cities are again seen. IMPRESSION: As above. POS: CALE
[2020-04-05] MEDS: Acetylcysteine 10% 100 MG/ML 30 ml Vial NEB SCH ×2 (00:10→07:38)
[2020-04-05] MEDS: Albuterol Sulfate 2.5 mg/3 ml Neb NEB SCH ×4 (00:12→18:34)
[2020-04-05] MEDS: Lactated Ringer's 1,000 ML IV SCH (02:48)
[2020-04-05] MEDS: Clindamycin/D5W 600 MG in Premix Bag 1 BAG IVPB SCH ×3 (02:49→17:23)
[2020-04-05 05:11] LABS: Anion Gap 19 mmol/L (10-20); BUN (Urea Nitrogen) 85 mg/dL (8.4-25.7); Calc. Creatinine Clearance 34 mL/min (70-130); Calcium 8.8 mg/dL (7.8-10.44); Carbon Dioxide 19 mmol/L (23-31); Chloride 111 mmol/L (98-107); Estimated GFR-MDRD 40; Glucose 136 mg/dL (83-110); Potassium 5.8 mmol/L (3.5-5.1); Sodium 143 mmol/L (136-145)
[2020-04-05 05:53] LABS: Anisocytosis SLIGHT = 6-15 cells (100X) (0-5/hpf); Band 18 % (5-11); Burr Cells SLIGHT = 2-5 cells (100X) (0-1/hpf); Hemoglobin 13.6 g/dL (14.0-18.0); Lymphocytes 3 % (21-51); MDiff Complete? YES; Mean Corpuscular HGB CONC 31.6 g/dL (32.0-36.0); Mean Corpuscular Hemoglobin 30.3 pg (27.0-31.0); Mean Corpuscular Volume 95.8 fL (78.0-98.0); Mean Platelet Volume 10.4 fL (7.4-10.4); Monocytes 2 % (0-10); Neutrophil 77 % (42-75); Nucleated RBC 1 % (0); Platelet Count 199 thou/uL (130-400); Platelet Morphology Comment Appears Adequate; Polychromasia SLIGHT = 2-3 cells (100X) (0-2/hpf); White Blood Cell (WBC) Count 31.9 thou/uL (4.8-10.8)
[2020-04-05] MEDS: Enoxaparin Sodium 40 MG/0.4 ML SYRINGE SC SCH (07:12)
[2020-04-05] MEDS: Cefepime 2 GM in Sodium Chloride 0.9% 100 ML IVPB SCH ×2 (07:12→20:13)
[2020-04-05] MEDS: Pantoprazole 40 MG VIAL IVP SCH (07:12)
[2020-04-05] MEDS ORDERED: Lactated Ringer's 500 ML IV SCH (09:15)
--- NOTE | 2020-04-05 10:50 | PRG ---
DATE OF SERVICE: 04/05/2020 SUBJECTIVE: This patient has been on BiPAP just about all night, although adjustment for him to be on BiPAP with his breathing treatments. His x-ray shows that his right middle lobe has reopened. OBJECTIVE: VITAL SIGNS: His temperature is 97.7, pulse in the 70s, blood pressure 107/57 via art-line. He is on a low dose of Levophed. He is also on lactated Ringer's 125 mL/hr. HEENT: Unremarkable. NECK: No adenopathy or JVD. CHEST: Fairly clear anteriorly. CARDIAC: S1, S2. Regular. ABDOMEN: Soft. EXTREMITIES: No edema. LABORATORY DATA: White blood cell count 31.9, hematocrit 43.2, and platelet count 199 with 77% neutrophils, 18% bands. Sodium 143, potassium 5.8, chloride 111, CO2 of 19, BUN 85, creatinine 1.9, and glucose 136. ASSESSMENT: 1. Clostridium perfringens growing out on pleural fluid - the patient is currently on clindamycin and cefepime, which should adequately cover that. 2. Right middle lobe atelectasis - resolved. 3. Hyperkalemia - the patient has received Kayexalate. We will need to stop the lactated Ringer's because it does have some potassium in it. 4. Acute renal dysfunction. 5. Advanced age. PLAN: 1. Kayexalate. 2. Change lactated Ringer's to half-normal saline. 3. We would consider stopping Mucomyst as that will thicken the secretions and make it more difficult to cough this up. 4. Condition is very tenuous. We will follow. Job ID: [id number]
--- NOTE | 2020-04-05 11:04 | PDOC.FM ---
- Subjective Subjective: Patient on BiPAP this morning. He is somnolent and not very responsive. He was laying on his left side and does appear edematous on that side. However, he has poor turgor on his right side. - Objective MAR Reviewed: Yes Vital Signs & Weight: Vital Signs (12 hours) Temp Pulse Pulse Pulse Resp BP BP 04/05/20 08:55 104 H 92 113/83 112/53 L 04/05/20 07:38 90 28 H 04/05/20 07:34 100 28 H 04/05/20 07:03 04/05/20 04:00 97.7 F 04/05/20 02:18 100 04/05/20 02:15 100 04/05/20 00:00 98 F Pulse Ox Pulse Ox Pulse Ox 04/05/20 08:55 91 L 100 04/05/20 07:38 100 04/05/20 07:34 100 04/05/20 07:03 100 04/05/20 04:00 04/05/20 02:18 100 04/05/20 02:15 04/05/20 00:00 Weight Admit Weight 75.432 kg Weight 81.8 kg Most Recent Monitor Data Heart Rate from ECG 94 NIBP 96/71 NIBP BP-Mean 79 Respiration from ECG 28 SpO2 100 I&O: 04/04/20 04/05/20 04/06/20 06:59 06:59 06:59 Intake Total 2272 2795 0 Output Total 1015 1075 170 Balance 1257 1720 -170 Result Diagrams: 04/05/20 04:25 04/05/20 04:25 EKG Reviewed by me: Yes Radiology Reviewed by me: Yes Phys Exam - Physical Examination Patient minimally responsive On bipap, decreased lung sounds right lower lobe, chest tube in place Cardiovascular: RRR Gastrointestinal: soft hypoactive bowel sounds edema on upper and lower extremities, dependent Difficult to assess due to current mental state Deviation from normal: Edematous on left side Dx/Plan (1) Necrotic pneumonia Code(s): J85.0 - GANGRENE AND NECROSIS OF LUNG Status: Acute (2) Pulmonary necrosis Code(s): J85.0 - GANGRENE AND NECROSIS OF LUNG Status: Acute (3) CKD (chronic kidney disease) Code(s): N18.9 - CHRONIC KIDNEY DISEASE, UNSPECIFIED Status: Acute (4) Hydropneumothorax Code(s): J94.8 - OTHER SPECIFIED PLEURAL CONDITIONS Status: Acute (5) LENIN (acute kidney injury) Code(s): N17.9 - ACUTE KIDNEY FAILURE, UNSPECIFIED Status: Acute (6) Afib Code(s): I48.91 - UNSPECIFIED ATRIAL FIBRILLATION Status: Acute (7) DM type 2 (diabetes mellitus, type 2) Status: Chronic Qualifiers: Diabetes mellitus salvage determiner insulin use: without penitentiary use Diabetes mellitus complication status: with unspecified complications (8) Dyslipidemia Code(s): E78.5 - HYPERLIPIDEMIA, UNSPECIFIED Status: Chronic (9) H/O prostate cancer Code(s): Z85.46 - PERSONAL HISTORY OF MALIGNANT NEOPLASM OF PROSTATE Status: Chronic (10) HTN (hypertension) Code(s): I10 - ESSENTIAL (PRIMARY) HYPERTENSION Status: Chronic Qualifiers: Hypertension type: essential hypertension Qualified Code(s): I10 - Essential (primary) hypertension - Plan Plan: Sepsis 2/2 Right hydropneumothorax complicated by necrotic PNA - Will continue abx coverage with cefepime and clindamycin. WBC count elevated, but stable from yesterday. Based on culture results, the current antibiotic regimen should be sufficient. - CV surg Dr. Hyman consulted from the ER. Appreciate recommendations. R Chest tube in place. Cultures growing out gram positive rods. S/p RLL lobectomy for necrotizing PNA. Continue antibiotics. - Pulm, Dr. Crowe consulted, appreciate recommendations. Patient extubated yesterday. Will wean pressors as tolerated. - Palliative care on board, appreciate help. Palliative spoke with patient's daughter who desires to keep patient full code at this time. Will continue to address. - CXR with RLL atelectasis; NAC started yesterday and discontinued today. CXR appears to show some improvement. 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 Wound vac in place. Will need f/u outpatient. - Gen surg, Dr. Cole consulted, appreciate recommendations. UTI - UA with bacteria 4+, leukocytes. Negative nitrites. - Urine cx: E coli and proteus sensitive to cefepime. Will continue tx. LENIN on CKD - Monitor for resolution with fluids - Cr continues to decline; BUN 85, Cr 1.94 - UO not adequate for patient (<0.5 mg/kg/hr), currently at appx 25 mL/hr - Consider albumin to help with third spacing - IVF bolus given - Avoid nephrotoxic agents HFrEF, EF 25-30% w/ AICD - Monitor for fluid overload with administration of bolus fluids for sepsis - Hold coreg for BP's - CXR this AM improved from yesterday HLD - Continue home meds Prediabetes - Start sliding scale insulin, A1c 6.4 BPH - hold meds due to low BPs, moran in place Dispo: pending specialist recommendations, continue abx Code: Full - ED discussed with family; Palliative care to assist with goals of care. As of yesterday, family still desires full code. Case discussed with Dr. Pearson Addendum - Attending - Attending Attestation Date/Time: 04/05/20 [id number] I personally evaluated the patient and discussed the management with Dr. Peterson I agree with the History, Examination, Assessment and Plan documented above with any addition or exceptions noted below - Patient in bed; less responsive than previously. Afebrile VSS. A/P: 1) Acute hypoxic resp failure- Atelectasis improved; continue BiPaP. 2) Clostridium perferingens pneumonia- continue current abx. 3) Protein-calorie malnutrition- prealbumin<5; will need nutrition support; has not passed bedside swallow 4) CKD- slightly worsened; continue to monitor. Family updated by Dr. Peterson.
[2020-04-05] MEDS: Sodium Chloride 0.45% 1,000 ML IV SCH (11:08)
--- NOTE | 2020-04-05 11:18 | RAD ---
SINGLE VIEW CHEST: HISTORY: Status post thoracotomy. COMPARISON: 04/04/20 FINDINGS: A single view of the chest shows an enlarged but stable cardiomediastinal silhouette. There has been interval placement of a Dobhoff feeding tube, which courses off the inferior aspect of the film. The pacemaker is unchanged in position. The central venous catheter is unchanged in position. There is im provement in the opacity in the right lung base, which likely represents a pleural effusion and adjac ent atelectasis. A small left pleural effusion may also be present. IMPRESSION: Improvement in right lower thoracic opacity. POS: EAA
[2020-04-05] MEDS ORDERED: Albumin 25% 25 GM/100 ML BOT IVPB SCH (13:31)
[2020-04-05 14:24] LABS: Anion Gap 21 mmol/L (10-20); BUN (Urea Nitrogen) 90 mg/dL (8.4-25.7); Calc. Creatinine Clearance 31 mL/min (70-130); Calcium 8.4 mg/dL (7.8-10.44); Carbon Dioxide 16 mmol/L (23-31); Chloride 112 mmol/L (98-107); Estimated GFR-MDRD 38; Glucose 155 mg/dL (83-110); Potassium 5.7 mmol/L (3.5-5.1); Sodium 143 mmol/L (136-145)
[2020-04-05] MEDS: Norepinephrine 8 MG/0.9% NS 250 ML IVPB PRN (21:31)
[2020-04-06] MEDS: Albuterol Sulfate 2.5 mg/3 ml Neb NEB SCH (00:09)
[2020-04-06] MEDS: Sodium Chloride 0.45% 1,000 ML IV SCH (00:22)
[2020-04-06] MEDS: Clindamycin/D5W 600 MG in Premix Bag 1 BAG IVPB SCH ×3 (03:44→17:07)
[2020-04-06 05:04] LABS: Anion Gap 19 mmol/L (10-20); BUN (Urea Nitrogen) 100 mg/dL (8.4-25.7); Calc. Creatinine Clearance 29 mL/min (70-130); Calcium 8.4 mg/dL (7.8-10.44); Carbon Dioxide 19 mmol/L (23-31); Chloride 113 mmol/L (98-107); Estimated GFR-MDRD 35; Glucose 215 mg/dL (83-110); Potassium 4.6 mmol/L (3.5-5.1); Sodium 146 mmol/L (136-145)
[2020-04-06 05:52] LABS: Hemoglobin 12.7 g/dL (14.0-18.0); Mean Corpuscular HGB CONC 31.9 g/dL (32.0-36.0); Mean Corpuscular Hemoglobin 29.9 pg (27.0-31.0); Mean Corpuscular Volume 93.7 fL (78.0-98.0); Platelet Count 180 thou/uL (130-400); RBC Distribution Width 17.6 % (11.5-14.5); Red Blood Cell (RBC) Count 4.26 mill/uL (4.70-6.10); White Blood Cell (WBC) Count 22.1 thou/uL (4.8-10.8)
--- NOTE | 2020-04-06 06:50 | PDOC.FM ---
- Subjective Subjective: Still on Levophed. Son present in room today with palliative care. Will continue to discuss goals of care and code status with the other family members. Pt is somewhat responsive to questions this morning. - Objective MAR Reviewed: Yes Vital Signs & Weight: Vital Signs (12 hours) Temp Pulse Resp Pulse Ox 04/06/20 04:00 97.6 F 04/06/20 02:51 100 30 H 100 04/06/20 00:00 97.6 F 04/05/20 22:19 100 29 H 100 04/05/20 20:00 99 04/05/20 19:15 100 04/05/20 19:00 98.0 F Weight Admit Weight 75.432 kg Weight 81.8 kg Most Recent Monitor Data Heart Rate from ECG 99 NIBP 102/74 NIBP BP-Mean 83 Respiration from ECG 28 SpO2 100 I&O: 04/04/20 04/05/20 04/06/20 06:59 06:59 06:59 Intake Total 2272 2795 1473 Output Total 1015 1075 1380 Balance 1257 1720 93 Result Diagrams: 04/06/20 04:10 04/06/20 04:10 Phys Exam - Physical Examination Constitutional: NAD HEENT: moist MMs Neck: supple diminished/absent lung sounds right lung Cardiovascular: RRR Gastrointestinal: soft Musculoskeletal: no edema Skin: normal turgor Dx/Plan - Plan Plan: Sepsis 2/2 Right hydropneumothorax complicated by necrotic PNA - Continue abx coverage with cefepime and clindamycin. - CV surg Dr. Hyman consulted from the ER. Appreciate recs. R Chest tube in place. S/p RLL lobectomy for necrotizing PNA. Continue antibiotics. - Cxs: C perfingens, Anaerobic variable rods. - Pulm, Dr. Crowe consulted, appreciate recommendations. Patient extubated 04/04. - Palliative care on board. Will continue to discuss goals of care and code status with family - Monitor respiratory status - Chest PT to right lower lobe - Continue to wean levophed as tolerated - Received albumin 04/05. 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 Wound vac in place. Will need f/u outpatient. - Gen surg, Dr. Cole consulted, appreciate recs. UTI - Urine cx: E coli and proteus sensitive to cefepime. Continue tx. LENIN on CKD - Monitor for resolution with fluids - Avoid nephrotoxic agents HFrEF, EF 25-30% w/ AICD - Monitor for fluid overload with administration of bolus fluids for sepsis - Hold coreg for BP's HLD - Continue home meds Prediabetes - A1c 6.4 BPH - hold meds due to low BPs, moran in place Dispo: pending specialist recommendations, continue abx Code: Full; Palliative care to assist with code status and goals of care.
[2020-04-06] MEDS: Pantoprazole 40 MG VIAL IVP SCH (07:41)
[2020-04-06] MEDS: Cefepime 2 GM in Sodium Chloride 0.9% 100 ML IVPB SCH ×2 (07:41→20:54)
[2020-04-06] MEDS: Dextrose 5 %-0.45 % NaCl 1,000 ML IV SCH ×3 (07:41→21:00)
[2020-04-06] MEDS: Enoxaparin Sodium 40 MG/0.4 ML SYRINGE SC SCH (07:41)
[2020-04-06 08:17] LABS: Band 16 % (5-11); MDiff Complete? YES; Neutrophil 84 % (42-75); Platelet Morphology Comment Appears Adequate; RBC Morphology Normal
[2020-04-06] MEDS ORDERED: Albumin 25% 25 GM/100 ML BOT IVPB ONE (08:47)
--- NOTE | 2020-04-06 09:35 | PRG ---
DATE OF SERVICE: 04/06/2020 SUBJECTIVE: This morning, he remains in the ICU, weak. OBJECTIVE: VITAL SIGNS: Temperature 96, blood pressure levophed, sats on 3 L, 80. His I's and O's have been consistently positive. CHEST: Decreased breath sounds. No wheezing. CARDIAC: Normal S1, S2. No gallops. ABDOMEN: Soft. EXTREMITIES: No edema. NEUROLOGICAL: LABORATORY DATA: Creatinine is 2, BUN is 100 . White count 22,000. ASSESSMENT: Anaerobic infection, right chest, previous lap, open wound, severe deconditioning, encephalopathy, renal failure. Stress dose of steroids was initiated. He probably is relatively adrenal insufficient. We will discuss with the family regarding ongoing care. PROGNOSIS: Overall grave. Job ID: [id number]
[2020-04-06] MEDS: HumaLOG 300 UNITS/3 ML VIAL SC PRN ×3 (10:59→20:56)
[2020-04-06] MEDS: Hydrocortisone Sod Succ/PF 100 mg/2 ml Vial IVP SCH ×3 (11:02→23:52)
[2020-04-06] MEDS ORDERED: Enoxaparin Sodium 30 MG/0.3 ML SYRINGE SC SCH (11:30)
--- NOTE | 2020-04-06 11:48 | RAD ---
CHEST 1 VIEW: INDICATION: History of thoracotomy. COMPARISON: Prior exam dated 04/05/2020. FINDINGS: The Dobhoff feeding tube is again seen projecting below the left hemidiaphragm. Portions of the tube project in the region of the fundus. The AICD is unchanged. Right-sided subclavian central venous catheter and right-sided thoracostomy tubes are unchanged. Airspace disease of both lower lobes pers ist. No pneumothorax is evident. IMPRESSION: Stable exam. POS: BH
--- NOTE | 2020-04-06 12:10 | PRG ---
DATE OF SERVICE: 04/06/2020 Mr. Silva is an 84-year-old black male patient with suffering from pneumonia and sepsis. His condition is very guarded. We have held a meeting with the son regarding Mr. Silva's code status. Although, the son would like to speak with his sister. He is convinced that his father would not want prolonged mechanical ventilation and supportive care. We will of course allow the family to discuss this amongst themselves and let us know later about his code status. In the meantime, we will continue with full supportive care along with the Intensive Care Team. Job ID: [id number]
[2020-04-06] MEDS ORDERED: Pancrelipase DR 12000 1 CAP FS PRN (21:19)
[2020-04-06] MEDS ORDERED: Sodium Bicarbonate Tab 325 MG TAB PER TUBE PRN (21:19)
[2020-04-07] MEDS: Clindamycin/D5W 600 MG in Premix Bag 1 BAG IVPB SCH ×3 (03:01→19:29)
[2020-04-07] MEDS: Dextrose 5 %-0.45 % NaCl 1,000 ML IV SCH ×2 (03:01→10:05)
[2020-04-07 05:04] LABS: Hemoglobin 12.4 g/dL (14.0-18.0); Mean Corpuscular HGB CONC 31.5 g/dL (32.0-36.0); Mean Corpuscular Hemoglobin 29.8 pg (27.0-31.0); Mean Corpuscular Volume 94.7 fL (78.0-98.0); Mean Platelet Volume 11.1 fL (7.4-10.4); Platelet Count 114 thou/uL (130-400); RBC Distribution Width 17.6 % (11.5-14.5); Red Blood Cell (RBC) Count 4.15 mill/uL (4.70-6.10); White Blood Cell (WBC) Count 16.9 thou/uL (4.8-10.8)
[2020-04-07 05:05] LABS: Band 4 % (5-11); Hypochromia SLIGHT = 6-15 cells (100X) (0-5/hpf); Lymphocytes 4 % (21-51); MDiff Complete? YES; Monocytes 1 % (0-10); Neutrophil 91 % (42-75); Nucleated RBC 1 % (0); Platelet Morphology Comment Appears Decreased
[2020-04-07 05:17] LABS: ALT (SGPT) 17 U/L (8-55); AST (SGOT) 32 U/L (5-34); Albumin 2.5 g/dL (3.4-4.8); Alkaline Phosphatase 123 U/L (40-110); Bilirubin, Direct 1.3 mg/dL (0.1-0.3); Bilirubin, Total 1.5 mg/dL (0.2-1.2); Protein, Total 6.2 g/dL (5.8-8.1)
[2020-04-07 05:18] LABS: Anion Gap 15 mmol/L (10-20); BUN (Urea Nitrogen) 97 mg/dL (8.4-25.7); Calc. Creatinine Clearance 32 mL/min (70-130); Calcium 8.1 mg/dL (7.8-10.44); Carbon Dioxide 21 mmol/L (23-31); Chloride 113 mmol/L (98-107); Estimated GFR-MDRD 39; Glucose 234 mg/dL (83-110); Potassium 3.5 mmol/L (3.5-5.1); Sodium 145 mmol/L (136-145)
[2020-04-07] MEDS: Hydrocortisone Sod Succ/PF 100 mg/2 ml Vial IVP SCH ×4 (05:54→23:47)
[2020-04-07] MEDS: HumaLOG 300 UNITS/3 ML VIAL SC PRN ×2 (05:54→11:03)
--- NOTE | 2020-04-07 06:41 | PDOC.FM ---
- Subjective Subjective: No overnight events. On Levophed at 2. Not following commands this morning. - Objective MAR Reviewed: Yes Vital Signs & Weight: Vital Signs (12 hours) Temp Pulse Resp Pulse Ox 04/07/20 04:00 96.8 F L 04/07/20 02:13 92 27 H 100 04/07/20 00:00 96.7 F L 04/06/20 21:50 86 24 H 100 04/06/20 20:00 100 04/06/20 19:01 92 23 H 100 04/06/20 19:00 96.7 F L Weight Admit Weight 75.432 kg Weight 86.471 kg Most Recent Monitor Data Heart Rate from ECG 95 NIBP 106/72 NIBP BP-Mean 83 Respiration from ECG 21 SpO2 96 I&O: 04/05/20 04/06/20 04/07/20 06:59 06:59 06:59 Intake Total 2795 2488 1984 Output Total 1075 1440 1610 Balance 1720 1048 374 Result Diagrams: 04/07/20 03:55 04/07/20 03:55 Phys Exam - Physical Examination Constitutional: NAD HEENT: moist MMs diminished/absent right lung sounds Cardiovascular: RRR Gastrointestinal: soft mild left hand edema Skin: no rash Dx/Plan - Plan Plan: Sepsis 2/2 Right hydropneumothorax complicated by necrotic PNA - Continue abx coverage with cefepime and clindamycin. - CV surg Dr. Hyman consulted from the ER. Appreciate recs. R Chest tube in place. S/p RLL lobectomy for necrotizing PNA. Continue antibiotics. - Cxs: C perfingens, Anaerobic variable rods. - Pulm, Dr. Crowe consulted, appreciate rec. Patient extubated 04/04. - Palliative care on board. Will continue to discuss goals of care and code status with family - Continue to wean levophed as tolerated. Started stress dose steroids. - Received albumin 04/05. 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 Wound vac in place. Will need f/u outpatient. - Gen surg, Dr. Cole consulted, appreciate recs. UTI - Urine cx: E coli and proteus sensitive to cefepime. Continue tx. LENIN on CKD - Monitor for resolution with fluids - Avoid nephrotoxic agents HFrEF, EF 25-30% w/ AICD - Monitor for fluid overload with administration of bolus fluids for sepsis - Hold coreg for BP's HLD - Continue home meds Prediabetes - A1c 6.4 BPH - hold meds due to low BPs, moran in place Dispo: pending specialist recommendations, continue abx Code: Full; Palliative care to assist with code status and goals of care. Addendum - Attending - Attending Attestation Date/Time: 04/07/20 7175 I personally evaluated the patient and discussed the management with Dr. Jurado. I agree with the History, Examination, Assessment and Plan documented above with any addition or exceptions noted below. Patient overall stable today, suspect some hypoactive delirium due to waxing/ waning awareness and responsiveness. He continues to need Levophed but hopeful to wean off that today or tomorrow. Continue abx for treatment of his pneumonia s/p lobectomy. CV surgery on board. Chest tube still in place. Wean oxygen as tolerated.
--- NOTE | 2020-04-07 07:17 | EKG ---
Test Reason : Blood Pressure : / mmHG Vent. Rate : 096 BPM Atrial Rate : 096 BPM P-R Int : 182 ms QRS Dur : 116 ms QT Int : 402 ms P-R-T Axes : 044 -55 075 degrees QTc Int : 507 ms Sinus rhythm with Premature atrial complexes Left axis deviation Low voltage QRS Incomplete left bundle branch block Prolonged QT Abnormal ECG Confirmed by DR. Deonte MCKINLEY ([id number]) on 04/07/2020 7:16:58 AM Referred By: GRECIA Confirmed By:DR. Deonte MCKINLEY
[2020-04-07] MEDS: Enoxaparin Sodium 30 MG/0.3 ML SYRINGE SC SCH (08:03)
[2020-04-07] MEDS: Pantoprazole 40 MG VIAL IVP SCH (08:03)
[2020-04-07] MEDS: Cefepime 2 GM in Sodium Chloride 0.9% 100 ML IVPB SCH ×2 (08:03→20:38)
--- NOTE | 2020-04-07 08:57 | RAD ---
CHEST 1 VIEW: INDICATION: History of thoracotomy. COMPARISON: Prior exam dated 04/06/2020. IMPRESSION: There is a feeding tube in place. Single-lead AICD, right-sided subclavian central venous catheter a nd right-sided and right-sided thoracostomy tubes are unchanged. Pulmonary vascular congestion persi sts. Airspace disease within both lower lobes is similar-appearing. No pneumothorax is evident. POS: [facility]
--- NOTE | 2020-04-07 09:05 | RAD ---
KUB: History: Dobbhoff tube placement. FINDINGS: The Dobbhoff feeding tube is seen below the hemidiaphragm. The tip would be in the region of the antr um portion of the stomach. IMPRESSION: Dobbhoff feeding tube below the hemidiaphragm in the region of the antrum of the stomach. POS: [facility]
--- NOTE | 2020-04-07 09:40 | PRG ---
DATE OF SERVICE: SUBJECTIVE: The patient remains in the ICU, pretty encephalopathic. He barely moves any extremities, looks weaker today. OBJECTIVE: VITAL SIGNS: Pulse is 94; blood pressure 99/75, on low-dose Levophed; sats 100%; respirations 37. CHEST: Decreased breath sounds, bilateral rhonchi. CARDIAC: Normal S1, S2. ABDOMEN: No masses. LABORATORY DATA: His creatinine is elevated at 2, BUN is 97. White count is 16,000; H and H 12 and 39. Lytes are normal. His total bilirubin was 1.5, glucose 252. X-ray shows right-sided chest tube. ASSESSMENT AND PLAN: 1. Abdominal sepsis, status post lap. 2. Right hydropneumothorax secondary necrotizing pneumonia, status post lobectomy. 3. Azotemia. 4. Severe deconditioning. 5. Encephalopathy. I had a lengthy discussion with the patient's daughter and the patient's sister about overall prognosis which remains guarded and grave, concerning he has multiorgan failure. We have requested we make him a DNR, but we will continue all supportive care including antibiotics, PT, nutrition, etc. They agree with the DNR status. We will keep him in the ICU as long as he is on the Levophed, eventually transfer him out of the ICU. One-half hour of critical time. Job ID: [id number]
[2020-04-08] MEDS: Clindamycin/D5W 600 MG in Premix Bag 1 BAG IVPB SCH ×2 (04:00→10:42)
[2020-04-08] MEDS: Hydrocortisone Sod Succ/PF 100 mg/2 ml Vial IVP SCH ×2 (05:56→11:31)
[2020-04-08] MEDS: HumaLOG 300 UNITS/3 ML VIAL SC PRN ×2 (05:57→12:28)
--- NOTE | 2020-04-08 07:07 | PDOC.FM ---
- Subjective Subjective: Resting comfortably. Still does not respond to command. Granddaughter updated on status. - Objective MAR Reviewed: Yes Vital Signs & Weight: Vital Signs (12 hours) Temp Pulse Resp BP Pulse Ox 04/08/20 04:10 97.4 F L 108 H 25 H 106/72 100 04/07/20 23:35 97.6 F 103 H 28 H 116/77 98 04/07/20 23:02 99 04/07/20 23:01 100 04/07/20 19:57 100 04/07/20 19:45 97.7 F 91 22 H 106/65 100 Weight Admit Weight 75.432 kg Weight 87.815 kg Most Recent Monitor Data Heart Rate from ECG 98 NIBP 114/70 NIBP BP-Mean 84 Respiration from ECG 33 SpO2 100 I&O: 04/07/20 04/08/20 04/09/20 06:59 06:59 06:59 Intake Total 1984 1157 Output Total 1610 2915 Balance 374 -5331 Result Diagrams: 04/08/20 06:37 04/08/20 06:37 Phys Exam - Physical Examination Constitutional: NAD Bilateral rhonchi. right- diminished/absent Cardiovascular: RRR Gastrointestinal: soft 2+ pitting edema hands does not follow commands Skin: no rash Dx/Plan - Plan Plan: Sepsis 2/2 Right hydropneumothorax complicated by necrotic PNA - Cxs: C perfingens, Anaerobic variable rods. Continue cefepime and clindamycin. - CV surg Dr. Hyman following. R Chest tube in place. S/p RLL lobectomy for necrotizing PNA. - Pulm, Dr. Crowe following - Palliative care on board. Changed to DNR yesterday. Continue to discuss goals of care Hypokalemia - 2.6 - Start IV replacement Abdominal Wall Dehiscent s/p bowel resection in February - Wound care consulted, appreciate recs. Wound vac in place. - Gen surg, Dr. Cole consulted, appreciate recs. CKD - Avoid nephrotoxic agents HFrEF, EF 25-30% w/ AICD - Monitor fluid status HLD - Continue home meds Prediabetes - A1c 6.4 BPH - hold meds due to low BPs, moran in place UTI - Adequately tx'ed Code Status: DNR Addendum - Attending - Attending Attestation Date/Time: 04/08/20 1025 I personally evaluated the patient and discussed the management with Dr. Jurado. I agree with the History, Examination, Assessment and Plan documented above with any addition or exceptions noted below. Patient overall stable. Patient has been transitioned to DNAR status. Continue abx, chest tube mgmt per CV surgery. There may be transition to hospice care in the coming days as he has failed to make meaningful improvement despite maximal medical therapy. Adding back low dose beta dary to help get his HR under control.
[2020-04-08 07:18] LABS: Mean Corpuscular HGB CONC 31.9 g/dL (32.0-36.0); Mean Corpuscular Hemoglobin 29.9 pg (27.0-31.0); Mean Corpuscular Volume 93.8 fL (78.0-98.0); Mean Platelet Volume 12.5 fL (7.4-10.4); Platelet Count 84 thou/uL (130-400); RBC Distribution Width 17.9 % (11.5-14.5); Red Blood Cell (RBC) Count 4.36 mill/uL (4.70-6.10); White Blood Cell (WBC) Count 16.8 thou/uL (4.8-10.8)
[2020-04-08 07:31] LABS: Anion Gap 15 mmol/L (10-20); BUN (Urea Nitrogen) 92 mg/dL (8.4-25.7); Calc. Creatinine Clearance 36 mL/min (70-130); Calcium 7.9 mg/dL (7.8-10.44); Carbon Dioxide 22 mmol/L (23-31); Chloride 112 mmol/L (98-107); Estimated GFR-MDRD 41; Glucose 388 mg/dL (83-110); Sodium 146 mmol/L (136-145)
[2020-04-08 07:35] LABS: Potassium 2.6 mmol/L (3.5-5.1)
[2020-04-08] MEDS ORDERED: Potassium Chloride 40 MEQ in Premix Bag 1 BAG IVPB SCH (08:15)
[2020-04-08 08:26] LABS: Band 26 % (5-11); Hypochromia SLIGHT = 6-15 cells (100X) (0-5/hpf); Lymphocytes 3 % (21-51); MDiff Complete? YES; Metamyelocyte 1 % (0-0); Monocytes 2 % (0-10); Neutrophil 68 % (42-75); Nucleated RBC 1 % (0); Platelet Morphology Comment Appears Decreased; Polychromasia SLIGHT = 2-3 cells (100X) (0-2/hpf); Target Cells MODERATE= 6-15 cells (100X) (0-1/hpf)
[2020-04-08] MEDS ORDERED: Insulin Glargine 5 UNITS in Pre-Filled Syringe 1 EACH SC SCH (09:00)
[2020-04-08] MEDS: Pantoprazole 40 MG VIAL IVP SCH (09:13)
[2020-04-08] MEDS: Enoxaparin Sodium 30 MG/0.3 ML SYRINGE SC SCH (09:13)
[2020-04-08] MEDS: Potassium Chloride 20 MEQ in Premix Bag 1 BAG IVPB SCH ×2 (09:13→11:31)
[2020-04-08] MEDS: Cefepime 2 GM in Sodium Chloride 0.9% 100 ML IVPB SCH (09:17)
--- NOTE | 2020-04-08 10:38 | PRG ---
DATE OF SERVICE: 04/08/2020 SUBJECTIVE: This morning, he is more obtunded. OBJECTIVE: VITAL SIGNS: Temperature 97, pulse respiratory rate 22, sats . CHEST: Extensive rhonchi, crackles. CARDIAC: Normal S1, S2. No gallops. ABDOMEN: No masses. LABORATORY DATA: Worsening renal function. Creatinine is 1.9, BUN 92. White count 6000. ASSESSMENT AND PLAN: Multiorgan failure, status post right lower lobectomy, status post lap, encephalopathy, worsening renal failure. PLAN: Comfort care, he is a DNR. Job ID: [id number]
[2020-04-08] MEDS ORDERED: Scopolamine 1.5 mg/72 hour Patch TD SCH (11:00)
[2020-04-08] MEDS: Potassium Chloride 20 MEQ/100 ML PREMIX BAG IVPB SCH ×2 (11:38→15:00)
[2020-04-08 11:54] VITALS: BP 99/65; TEMP 97.3
[2020-04-08 13:40] VITALS: BMI 27.0
[2020-04-08] MEDS ORDERED: Potassium Chloride 20 MEQ/100 ML PREMIX BAG IVPB SCH (14:30)
--- NOTE | 2020-04-09 02:21 | DIS ---
DATE OF ADMISSION: 03/31/2020 DATE OF DISCHARGE: 04/08/2020 SUMMARY ATTENDING: Mikhail Mario MD RESIDENT: Evelin Jurado MD, PGY-2. DATE OF : 04/08/2020. TIME OF : 1500 hours. CAUSE OF : Sepsis secondary to right hydropneumothorax complicated by necrotic pneumonia. SECONDARY DIAGNOSES: 1. Hypokalemia. 2. Abdominal wound dehiscence status post bowel resection. 3. Chronic kidney disease. 4. Heart failure with reduced ejection fraction. 5. Hyperlipidemia. 6. Prediabetes. 7. Benign prostatic hypertrophy. 8. Urinary tract infection. HOSPITAL COURSE: Mr. Silva was an 84-year-old male, who is sent over from [facility] secondary to sepsis. He had recently had a small bowel resection and was discharged on 03/05/2020. In the ED, CT revealed significant right lung pathology requiring chest tube by CV surgery. He is 95% on room air. He was started on cefepime and vancomycin and received 3 L of normal saline. He was also noted to have LENIN. Clindamycin was added for anaerobic coverage. He is noted to have a lactic acid of 8.9 at admission and Pulmonology was consulted. The patient was taken for right lobectomy on 04/02/2020. Cultures of pleural fluid grew out Clostridium perfringens and Clostridium species. Urine culture grew out Escherichia coli and Proteus mirabilis. The patient was unable to be extubated immediately after surgery. He required pressors. The patient was extubated on 04/04. Despite trying to wean Levophed, it was unsuccessful. He was started on stress dose steroids and received aggressive fluid resuscitation. He also received albumin on 04/05 in an attempt to help with weaning of Levophed. He was eventually able to wean from the pressors. The patient's palliative care was consulted and the patient's family decided to pursue DNR status and was discussing hospice when the patient . Job ID: [id number] [facility]
== END 2020-04-08 15:00 | disposition expired | DRG 853 ==
LOC: ERS 16:23 → IMCU/EMU 20:36 → CCU 04-02 09:50 → T4-A 04-07 13:22
PROVIDERS: ADMIT Family Medicine; ATTEND Family Medicine
PROC: 0W9900Z Drainage of Right Pleural Cavity with Drainage Device, Open Approach (ICD-10-PCS; principal; 2020-03-31)
PROC: 0BBF0ZZ Excision of Right Lower Lung Lobe, Open Approach (ICD-10-PCS; 2020-04-02)
DX: A41.9 Sepsis, unspecified organism (principal); J18.9 Pneumonia, unspecified organism; J94.2 Hemothorax; I13.0 Hypertensive heart and chronic kidney disease with heart failure and stage 1 through stage 4 chronic kidney disease, or unspecified chronic kidney disease; I50.22 Chronic systolic (congestive) heart failure; N39.0 Urinary tract infection, site not specified; N17.9 Acute kidney failure, unspecified; T81.31XA Disruption of external operation (surgical) wound, not elsewhere classified, initial encounter; G96.0 Cerebrospinal fluid leak; J98.11 Atelectasis; E46 Unspecified protein-calorie malnutrition; G93.40 Encephalopathy, unspecified; J94.8 Other specified pleural conditions; Z66 Do not resuscitate; Z51.5 Encounter for palliative care; E87.6 Hypokalemia; N18.9 Chronic kidney disease, unspecified; E78.5 Hyperlipidemia, unspecified; E11.22 Type 2 diabetes mellitus with diabetic chronic kidney disease; R13.10 Dysphagia, unspecified; E87.5 Hyperkalemia; N40.0 Benign prostatic hyperplasia without lower urinary tract symptoms; B96.20 Unspecified Escherichia coli [E. coli] as the cause of diseases classified elsewhere; Z95.810 Presence of automatic (implantable) cardiac defibrillator; Z90.49 Acquired absence of other specified parts of digestive tract; Z88.0 Allergy status to penicillin; Z88.8 Allergy status to other drugs, medicaments and biological substances
CPT/HCPCS: 32551; 36415; 36416; 51701; 71045; 71260; 74018; 74177; 80048; 80053; 80076; 81003; 81015; 82533; 82805; 83036; 83605; 84134; 85025; 86780; 86850; 86900; 86901; 87040; 87070; 87076; 87077; 87086; 87186; 87205; 87324; 87449; 88309; 93005; 93010; 94002; 94003; 94660; 94667; 94668; 96361; 96365; 96367; C9113; J0692; J1650; J1720; J1815; J2001; J2704; J3010; J3370; J3480; J3490; J7042; J7608; J7611; J7620; P9047; Q9967